=== PATIENT | male | born 1930 | race Caucasian/White ===

== ENCOUNTER → 2016-07-20 | Outpatient (CLI) | payer OTHER ==
[~2016-07-20] MED LIST: CHOL100040 PO; IBUP-103 PO; MULT-190 PO; MULT-506 PO; PRT40 PO
[2016-07-20 17:25] LABS: BASO % 0.3 %; BASO ABS # 0.02 K/uL (0-0.2); BLOOD UREA NITROGEN 18 mg/dl (7-18); COMPLETE YES; EOS % 1.4 %; GLUCOSE 91 mg/dl (70-99); HEMATOCRIT 43.4 % (42-52); IG% 0.3 %; LYMPH % 30.7 %; LYMPH ABS # 2.19 K/uL (1.2-3.4); MEAN CELL VOLUME 97.3 fL (80-100); MEAN CORPUSCULAR HEMOGLOBIN 32.5 pg (25-34); MEAN CORPUSCULAR HGB CONC 33.4 g/dl (32-36); MEAN PLATELET VOLUME 11.5 fL (7.4-10.4); MONO % 16.7 %; NEUT % 50.6 %; PLATELET COUNT 125 K/uL (130-400); RED BLOOD COUNT 4.46 M/uL (4.7-6.1); WHITE BLOOD COUNT 7.14 K/uL (4.8-10.8)
[2016-07-20 17:26] LABS: ALB/GLOB RATIO 1.1 (0.9-2); ALT/SGPT 26 U/L (12-78); AST/SGOT 23 U/L (15-37); BUN/CREATININE RATIO 15.1 (10-20); CALCIUM 8.8 mg/dl (8.5-10.1); CARBON DIOXIDE 31 mmol/L (21-32); CHLORIDE 108 mmol/L (98-107); POTASSIUM 4.2 mmol/L (3.5-5.1); SODIUM 144 mmol/L (136-145)
[2016-07-20 17:36] LABS: ALKALINE PHOSPHATASE 78 U/L (45-117)
--- NOTE | 2016-08-05 10:14 | CODING QUERY MEDICAL NECESSITY ---
SUPPORTING DIAGNOSIS NEEDED A supporting diagnosis is required for the test/procedure performed on this patient in order for us to be reimbursed by the patient's insurance. Please provide a supporting diagnosis for the following test/procedure listed below next to the test name along with your signature. *If there is no additional diagnosis for this patient that would support the following test/procedure please document that below next to the test/procedure. Test(s)/Procedure(s) that require a supporting diagnosis: * VITAMIN B-12 LEVEL DIAGNOSIS: * FOLATE LEVEL DIAGNOSIS: * DOS: 07/23/16 Provider Signature: Date: Thank you Rach Montes Health Information Management Once completed, please kindly fax back to [phone] For questions please call [phone]
== END | disposition home or self-care (01) ==
LOC: C.LABBC 15:04
PROVIDERS: ATTEND Internal Medicine
DX: R44.1 Visual hallucinations (principal); G31.84 Mild cognitive impairment of uncertain or unknown etiology

== ENCOUNTER → 2016-08-02 | Outpatient (CLI) | payer OTHER ==
--- NOTE | 2016-08-02 11:59 | DIAGNOSTIC IMAGING REPORT ---
MRI OF THE BRAIN WITHOUT IV CONTRAST CLINICAL HISTORY: Visual hallucinations. COMPARISON STUDY: No priors. TECHNIQUE: MRI of the brain was performed utilizing various T1 and T2-weighted sequences in the axial, sagittal, and coronal planes. IV contrast was not administered for this examination. The examination is significantly compromised by motion artifact and open MRI technique. FINDINGS: Brain parenchyma: There are age-related involutional changes noting moderate confluent subcortical and periventricular microangiopathic disease. There is no hemorrhage or mass effect. There is no restricted diffusion to suggest acute ischemia. Ruiz-white matter differentiation is preserved. No extra-axial fluid collection is seen. The cerebellar tonsils are normal in configuration. Ventricles, sulci, and cisterns: Prominent secondary to involutional change. Pituitary and sella: Unremarkable. Intracranial vasculature: Normal flow voids are maintained at the skull base. Orbits: The bony orbits are grossly intact. Orbital contents are normal in appearance noting a right ocular lens implant. Sinuses and mastoids: Clear. Calvarium: Unremarkable. Cervical cord: Partially visualized cervical spinal cord is normal in morphology and signal intensity. IMPRESSION: No acute intracranial abnormality noting a motion degraded examination. See above. Electronically signed by: Jensen Leonard M.D. 08/02/2016 11:58 AM Dictated Date/Time: 08/02/2016 11:55 AM
== END | disposition home or self-care (01) ==
LOC: C.OPENMRI 10:47
PROVIDERS: ATTEND Internal Medicine
DX: R44.1 Visual hallucinations (principal)

== ENCOUNTER 2016-11-17 13:57 | Inpatient (IN) | payer OTHER ==
[~2016-11-17] VITALS: Ht 170.2 cm; Wt 90.9 kg
[~2016-11-17 13:57] MED LIST changes: -IBUP-103 PO; -PRT40 PO
[2016-11-17] MEDS ORDERED: SODIUM CHLORIDE 0.9% 1000ML 1,000 ML IV STA (14:16)
[2016-11-17] MEDS ORDERED: IBUP-103 PO (14:29)
[2016-11-17] MEDS ORDERED: PANTOprazole INJ 80 MG in DEXTROSE 5% 100ML IV SCH (14:30)
[2016-11-17] MEDS ORDERED: PANTOprazole INJ 40 MG in DEXTROSE 5% 100ML IV SCH (14:45)
[2016-11-17 14:49] LABS: BASO % 0.3 %; BASO ABS # 0.02 K/uL (0-0.2); COMPLETE YES; EOS % 0.9 %; HEMATOCRIT 30.9 % (42-52); IG% 0.5 %; LYMPH ABS # 2.35 K/uL (1.2-3.4); MEAN CELL VOLUME 94.8 fL (80-100); MEAN CORPUSCULAR HEMOGLOBIN 30.4 pg (25-34); MEAN PLATELET VOLUME 10.8 fL (7.4-10.4); MONO % 15.1 %; NEUT % 46.2 %; PLATELET COUNT 111 K/uL (130-400); RED BLOOD COUNT 3.26 M/uL (4.7-6.1); WHITE BLOOD COUNT 6.35 K/uL (4.8-10.8)
[2016-11-17 14:59] LABS: INR 1.1 (0.9-1.1); PROTHROMBIN TIME (PATIENT) 11.6 SECONDS (9.0-12.0)
[2016-11-17 15:06] LABS: ALT/SGPT 21 U/L (12-78); BLOOD UREA NITROGEN 47 mg/dl (7-18); BUN/CREATININE RATIO 27.8 (10-20); CALCIUM 8.8 mg/dl (8.5-10.1); CARBON DIOXIDE 26 mmol/L (21-32); CHLORIDE 112 mmol/L (98-107); GLUCOSE 121 mg/dl (70-99); SODIUM 145 mmol/L (136-145)
[2016-11-17 15:09] LABS: ALKALINE PHOSPHATASE 67 U/L (45-117); AST/SGOT 18 U/L (15-37)
--- NOTE | 2016-11-17 16:38 | Gastrointestinal Consultation ---
Gastrointestinal Consultation Date of Consultation: Nov 17, 2016 Attending Physician: DEUCE Mcneal Consulting Physician: Fox Reason for Consultation: melena, coffee ground emesis History of Present Illness Patient is a 86 year old male with past medical history significant for PUD in 2012 and macular degeneration (pt denies any other history) who presented in the ED accompanied by her for evaluation of coffee ground emesis x 1 on Tuesday and numerous episodes of black stool yesterday. Pt was seen and evaluated in C9 in the ER. Pt appears to be a poor history of history and ROS are limited as he was not cooperative. When I ask him about abdominal pain, he looks at his and tells me "nobody is home" then denies abdominal pain. He denies any upper GI symptoms include epigastric pain, burning, regurgitation, burping, belching or nausea. He is not on any acid reflux regimen as an outpatient. He does not typically take NSAIDs. May take 1-2 tablets of Aleve PRN for joint pains. Does not use tobacco. Does not drink ETOH. Having numerous episodes of black stools without any abdominal pain - he is unable to quantify how many. Denies fever, chills, chest pain, SOB. Last HGB on record was 14, today HGB in 9.9. INR is non elevated. BUN 47 [employer] LIP READING 1.7 EGD 09/26/12: edematous, thick inflammed area with an associated superficial ulcer in gastric antum/lesser curve area; normal esophagus and duodenum. Path: chronic active gastritis, (-) for H Pylori. VFSS 07/31/12: normal, no dietary or behavioral modifications recommended. EGD 02/28/2012: large soft mass in the antrum with deep ulcer. Path from biopsies around the ulcer with chronic active mild gastritis H Pylori (-). Past Medical/Surgical History melena, coffee ground emesis Past Medical History: PUD, GERD, gastritis, dysphagia, actinic keratosis, seborrheic dermatitis, squamous cell carcinoma, basal cell carcinoma, Past Surgical History: EGD, cholecystectomy Family History No pertinent family history Social History Smoking Status: Never Smoker Drug Use: none Marital Status: Housing Status: unknown Occupation Status: retired Allergies Coded Allergies: No Known Allergies (Verified , 11/17/16) Current Medications Home Meds and Scripts Medications Dose Route/Sig Max Daily Dose Days Date Category Advil (Ibuprofen) 200 Mg Tab 200 Mg PO 11/17/16 Reported Ocuvite Preservision (Multivitamins/Minerals) 1 Tab Tab 1 Tab PO DAILY 02/09/14 Reported Vitamin D-1000 (Cholecalciferol) 1,000 Unit Tab 2,000 Units PO DAILY 02/09/14 Reported Multivitamin (Multivitamins) Tab 1 Tab PO DAILY 02/09/14 Reported Review of Systems Constitutional: No fever, No chills Respiratory: No cough, No shortness of breath Cardiac: No chest pain, No edema Abdomen: + vomiting, + diarrhea, + GI bleeding, No pain, No nausea, No constipation Physical Exam Date Time Temp Pulse Resp B/P (MAP) Pulse Ox O2 Delivery O2 Flow Rate FiO2 11/17/16 16:01 82 18 141/72 99 Room Air 11/17/16 14:31 93 11/17/16 14:26 96 Room Air 11/17/16 13:59 36.7 102 20 112/65 96 Room Air General Appearance: no apparent distress (no distress, but pt appears frustrated and aggitated ) Eyes: PERRL Neck: supple Respiratory/Chest: lungs clear Cardiovascular: regular rate, rhythm, + systolic murmur Abdomen: normal bowel sounds, non tender, soft, no organomegaly, no pulsatile mass Neurologic/Psych: alert Skin: normal color, warm/dry Laboratory Results Last 24 Hours Test 11/17/16 14:36 White Blood Count 6.35 K/uL Red Blood Count 3.26 M/uL Hemoglobin 9.9 g/dL Hematocrit 30.9 % Mean Corpuscular Volume 94.8 fL Mean Corpuscular Hemoglobin 30.4 pg Mean Corpuscular Hemoglobin Concent 32.0 g/dl Platelet Count 111 K/uL Mean Platelet Volume 10.8 fL Neutrophils (%) (Auto) 46.2 % Lymphocytes (%) (Auto) 37.0 % Monocytes (%) (Auto) 15.1 % Eosinophils (%) (Auto) 0.9 % Basophils (%) (Auto) 0.3 % Neutrophils # (Auto) 2.93 K/uL Lymphocytes # (Auto) 2.35 K/uL Monocytes # (Auto) 0.96 K/uL Eosinophils # (Auto) 0.06 K/uL Basophils # (Auto) 0.02 K/uL RDW Standard Deviation 54.5 fL RDW Coefficient of Variation 15.7 % Immature Granulocyte % (Auto) 0.5 % Immature Granulocyte # (Auto) 0.03 K/uL Prothrombin Time 11.6 SECONDS Prothromb Time International Ratio 1.1 Activated Partial Thromboplast Time 25.4 SECONDS Partial Thromboplastin Ratio 1.0 Sodium Level 145 mmol/L Potassium Level 4.0 mmol/L Chloride Level 112 mmol/L Carbon Dioxide Level 26 mmol/L Anion Gap 7.0 mmol/L Blood Urea Nitrogen 47 mg/dl Creatinine 1.70 mg/dl Est Creatinine Clear Calc Drug Dose 32.9 ml/min Estimated GFR () 41.1 Estimated GFR (Non- 35.5 BUN/Creatinine Ratio 27.8 Random Glucose 121 mg/dl Calcium Level 8.8 mg/dl Total Bilirubin 0.4 mg/dl Direct Bilirubin < 0.1 mg/dl Aspartate Amino Transf (AST/SGOT) 18 U/L Alanine Aminotransferase (ALT/SGPT) 21 U/L Alkaline Phosphatase 67 U/L Total Protein 6.3 gm/dl Albumin 3.3 gm/dl Lipase 171 U/L Impression Patient is a 86 year old male with history of gastric ulcer in 2011 and 2012 who presented with melena and coffee ground emesis x 1 day. HGB 9.9. Differentials PUD include nenita-Ngo tear, esophagitis, variceal bleed etc Plan NPO EGD 11/18/16 PPI Bolus&Drip No NSAIDs Trend H&H Transfuse as needed Monitor for S/S GI blood loss GI to follow. Please call with any questions or concerns. ATTESTATION: I have performed a history and physical examination of this patient and reviewed the electronic record. Specifically, on physical examination there is no abdominal tenderness. I have discussed the case with NELSON Hill. The above note reflects my findings, conclusions, and recommendations. Jas Braxton MD
[2016-11-17] MEDS ORDERED: ONDANSETRON INJ 2 MG/ML 2 ML VIAL IV PRN (16:45)
[2016-11-17 17:30] VITALS: BP 156/78; PULSE 78; TEMP 36.9; Ht 170.2 cm; Wt 90.9 kg
--- NOTE | 2016-11-17 17:52 | History and Physical ---
History & Physical Date of Service Nov 17, 2016. History & Physical Resident Physician Supervision Note: I interviewed and examined the patient. Discussed with Dr. Erin Resendiz and agree with findings and plan as documented in the note. Any exceptions or clarifications are listed here: None This 86-year-old relatively healthy male presents with a three-day history of vomiting black liquid and having dark stools. He is slightly fatigued he initially had some abdominal pain with this is resolved. He presented to the ER due to continued her stools and found to have an hemoglobin of 9.9 down from 14 earlier this year is Vital signs reviewed and stable Physical exam shows a heart murmur which is more consistent with a mitral murmur heard with systolic Abdomen normoactive bowel sounds soft and nontender Assessment a 86-year-old male likely upper GI bleed he'll be kept nothing by mouth and have a upper endoscopy on November 18 1v Protonix drip serial hemoglobins will be evaluated and transfuse as needed Regarding his heart murmur is told he's had a heart murmur in the past and because this may become significantly future an echocardiogram be performed likewise because we are going to be giving the patient volume resuscitation evaluation of this murmur would be important DVT prevention is mechanical given his bleeding was This patient is a full code Documented By: Jorge Mcneal
--- NOTE | 2016-11-17 18:06 | History and Physical ---
History & Physical Date & Time of Service: Nov 17, 2016 at 17:48 Chief Complaint: Acute Kidney Injury (Nilson), Anemia Primary Care Physician: Thomas Combs M.D. 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 According to the this started with an episode of black emesis on Tuesday night. Since then he has started with diarrhea which is black and loose. When the looked at it she felt there was dark red blood in amongst the stool. He has never had any episodes like this before. He did have an EGD in 2012 for GERD and was started on Omeprazole which he self d/c as he felt he did not need the medication any more. No recent trips and no change in diet. Denies any pain today however yesterday his abdomen felt " uncomfortable". Does have a history of "vertigo" when he gets up too quickly. He has no history of carcinoma in him and no colon cancer in the family only prostate cancer in his father. When being evaluated in the ED he was found to have grossly positive Hemoccult and a hgb of 9.9 from his normal of 14. He is not tachycardic however he does have a systolic murmur which was unknown to the patient. he did received a bolus of NSS in the ED. Blood consent form signed. Past Medical/Surgical History Surgical Problems: (1) History of back surgery Status: Resolved (2) Hx of cholecystectomy Status: Resolved Family History FH: prostate cancer FATHER Social History Smoking Status: Never Smoker Smokeless Tobacco Use: No Alcohol Use: none Drug Use: none Marital Status: Housing status: lives with significant other Occupational Status: retired Immunizations History of Influenza Vaccine: No History of Tetanus Vaccine?: Unknown History of Pneumococcal: No History of Hepatitis B Vaccine: Unknown Multi-Drug Resistant Organisms History of MDRO: No Allergies Coded Allergies: No Known Allergies (Verified , 11/17/16) Home Medications Scheduled Cholecalciferol (Vitamin D-1000), 2,000 UNITS PO DAILY Multivitamin (Multivitamin), 1 TAB PO DAILY Ocuvite Preservision (Ocuvite Preservision), 1 TAB PO DAILY Miscellaneous Medications Ibuprofen Tab (Advil), 200 MG PO Review of Systems Unable to complete ROS as the patient is LEVEL[place] and unable to answer questions Physical Exam Vital Signs Date Time Temp Pulse Resp B/P (MAP) Pulse Ox O2 Delivery O2 Flow Rate FiO2 11/17/16 16:52 64 18 138/84 96 Room Air 11/17/16 16:01 82 18 141/72 99 Room Air 11/17/16 14:31 93 11/17/16 14:26 96 Room Air 11/17/16 13:59 36.7 102 20 112/65 96 Room Air General Appearance: no apparent distress Head: normocephalic, atraumatic Eyes: normal inspection ENT: normal ENT inspection Neck: supple Respiratory/Chest: normal breath sounds, no respiratory distress, no accessory muscle use Cardiovascular: regular rate, rhythm, normal peripheral pulses, + systolic murmur (3/6) Abdomen/GI: normal bowel sounds, non tender, soft, no organomegaly, + fecal occult blood, + pertinent finding (grossly positive hemoccult, black stool noted ) Back: normal inspection Extremities/Musculoskelatal: normal inspection, no calf tenderness, no pedal edema Neurologic/Psych: alert, normal mood/affect Skin: normal color, warm/dry, no rash Lymphatic: no adenopathy Diagnostics Laboratory Results Results Past 24 Hours Test 11/17/16 14:36 Range/Units White Blood Count 6.35 4.8-10.8 K/uL Red Blood Count 3.26 4.7-6.1 M/uL Hemoglobin 9.9 14.0-18.0 g/dL Hematocrit 30.9 42-52 % Mean Corpuscular Volume 94.8 80-100 fL Mean Corpuscular Hemoglobin 30.4 25-34 pg Mean Corpuscular Hemoglobin Concent 32.0 32-36 g/dl Platelet Count 111 130-400 K/uL Mean Platelet Volume 10.8 7.4-10.4 fL Neutrophils (%) (Auto) 46.2 % Lymphocytes (%) (Auto) 37.0 % Monocytes (%) (Auto) 15.1 % Eosinophils (%) (Auto) 0.9 % Basophils (%) (Auto) 0.3 % Neutrophils # (Auto) 2.93 1.4-6.5 K/uL Lymphocytes # (Auto) 2.35 1.2-3.4 K/uL Monocytes # (Auto) 0.96 0.11-0.59 K/uL Eosinophils # (Auto) 0.06 0-0.5 K/uL Basophils # (Auto) 0.02 0-0.2 K/uL RDW Standard Deviation 54.5 36.4-46.3 fL RDW Coefficient of Variation 15.7 11.5-14.5 % Immature Granulocyte % (Auto) 0.5 % Immature Granulocyte # (Auto) 0.03 0.00-0.02 K/uL Prothrombin Time 11.6 9.0-12.0 SECONDS Prothromb Time International Ratio 1.1 0.9-1.1 Activated Partial Thromboplast Time 25.4 21.0-31.0 SECONDS Partial Thromboplastin Ratio 1.0 Sodium Level 145 136-145 mmol/L Potassium Level 4.0 3.5-5.1 mmol/L Chloride Level 112 98-107 mmol/L Carbon Dioxide Level 26 21-32 mmol/L Anion Gap 7.0 3-11 mmol/L Blood Urea Nitrogen 47 7-18 mg/dl Creatinine 1.70 0.60-1.40 mg/dl Est Creatinine Clear Calc Drug Dose 32.9 ml/min Estimated GFR () 41.1 Estimated GFR (Non- 35.5 BUN/Creatinine Ratio 27.8 10-20 Random Glucose 121 70-99 mg/dl Calcium Level 8.8 8.5-10.1 mg/dl Total Bilirubin 0.4 0.2-1 mg/dl Direct Bilirubin < 0.1 0-0.2 mg/dl Aspartate Amino Transf (AST/SGOT) 18 15-37 U/L Alanine Aminotransferase (ALT/SGPT) 21 12-78 U/L Alkaline Phosphatase 67 45-117 U/L Total Protein 6.3 6.4-8.2 gm/dl Albumin 3.3 3.4-5.0 gm/dl Lipase 171 73-393 U/L EKG Sinus rhythm with 1st degree A-V block Incomplete right bundle branch block Left anterior fascicular block Minimal voltage criteria for LVH, may be normal variant Abnormal ECG When compared with ECG of 09-FEB-2014 10:18, UT interval has increased Note QTc is 462 Impression Assessment and Plan This is an 86 yo m with an acute GI bleed most likely upper in nature. He will be admitted for further evaluation and plan is for EGD tomorrow. As the patient is actively bleeding and there is an unknown murmur would be appropriate to assess the patient's CVS status as if there is underlying cardiovascular disease the parameters of hgb for transfusion may be more lenient. Anemia secondary to acute loss most likely GI in nature - tele admission - HH q 6 h - Consult GI- plan for EGD and patient is NPO - protonix drip - blood consent has been signed and T&S complete - Will hold one unit - plan to transfuse < 8 or hemodynamically unstable - consider H pylori based on EGD - no recent abx use and no RF for C Diff, no WBC count so will hold off on testing for this NILSON most likely secondary to dehydration/ acute blood loss - Recheck bmp in the am - NSS @ 80 cc/h ( unsure of patient's current ejection fraction) - Did receive a bolus of NSS in the ED - Monitor I&O New systolic murmur in the presence of acute blood loss - Echo complete - monitor I&O DVT prophylaxis - SCD as chemical prophylaxis contraindicated FULL CODE LEVELOCK please discuss care with POA, Level of Care Telemetry Resuscitation Status FULL RESUSCITATION VTE Prophylaxis VTE Risk Assessment Done? Y/N: Yes Risk Level: Moderate Given or contraindicated: SCD's Social Service Consult None Apply Additional Copies To Thomas Combs M.D.
[2016-11-17] MEDS: SODIUM CHLORIDE 0.9% 1000ML 1,000 ML IV SCH (18:49)
[2016-11-17 19:20] VITALS: BP 142/71; PULSE 80; TEMP 36.9; O2SAT 99
[2016-11-17 20:00] VITALS: O2SAT 80
--- NOTE | 2016-11-17 20:11 | EMERGENCY ROOM VISIT NOTE ---
History Report prepared by Clarkibstaci: Jonny Iyer Under the Supervision of: Dr. Clayton Jones D.O. First contact with patient: 14:06 Chief Complaint: GI ASSESSMENT Stated Complaint: BLOOD IN STOOL History of Present Illness The patient is an 86 year old male who presents to the Emergency Room with complaints of persistent rectal bleeding since yesterday. The patient told his that he had dark stools. When she inspected his next bowel movement herself , she noticed that the stool was black with red blood noted. The patient also vomited twice two nights ago, which was black. The patient initially attributed the black vomit to eating ice cream, however he ate vanilla ice cream with some chocolate syrup. The patient is not on blood thinners. The patient denies headache, change in vision, fevers, chest pain, shortness of breath, pain with urination. Source of History: patient, spouse/significant other Onset: yesterday Position: other (rectal) Quality: other (melena) Timing: other (persistent) Associated Symptoms: + vomiting, No fevers, No headache, No chest pain, No SOB, No urinary symptoms Review of Systems See HPI for pertinent positives & negatives. A total of 10 systems reviewed and were otherwise negative. Past Medical & Surgical Medical Problems: (1) MINOO (acute kidney injury) (2) Anemia Surgical Problems: (1) History of back surgery (2) Hx of cholecystectomy Family History No pertinent family history Social History Smoking Status: Never Smoker Drug Use: none Marital Status: Housing Status: unknown Occupation Status: retired Current/Historical Medications Scheduled Cholecalciferol (Vitamin D-1000), 2,000 UNITS PO DAILY Multivitamin (Multivitamin), 1 TAB PO DAILY Ocuvite Preservision (Ocuvite Preservision), 1 TAB PO DAILY Miscellaneous Medications Ibuprofen Tab (Advil), 200 MG PO Allergies Coded Allergies: No Known Allergies (Verified , 11/17/16) Physical Exam Vital Signs Date Time Temp Pulse Resp B/P (MAP) Pulse Ox O2 Delivery O2 Flow Rate FiO2 11/17/16 16:01 82 18 141/72 99 Room Air 11/17/16 14:31 93 11/17/16 14:26 96 Room Air 11/17/16 13:59 36.7 102 20 112/65 96 Room Air Physical Exam GENERAL: Sitting up in bed, hard of hearing, no acute distress, nontoxic. EYE EXAM: normal conjunctiva. OROPHARYNX: no exudate, no erythema, lips, buccal mucosa, and tongue normal and mucous membranes are moist NECK: supple, no nuchal rigidity, no adenopathy, non-tender LUNGS: Clear to auscultation. Normal chest wall mechanics HEART: Systolic ejection murmur, S1 normal and S2 normal ABDOMEN: abdomen soft, non-tender, normo-active bowel sounds, no masses, no rebound or guarding. Melanotic stool heme positive. BACK: Back is symmetrical on inspection and there is no deformity, no midline tenderness, no CVA tenderness. SKIN: no rashes and no bruising UPPER EXTREMITIES: upper extremities are grossly normal. LOWER EXTREMITIES: No pitting edema. NEURO EXAM: Normal sensorium, cranial nerves II-XII grossly intact, normal speech, no gross weakness of arms, no gross weakness of legs. Gross sensation intact. Medical Decision & Procedures Laboratory Results 11/17/16 14:36 Red Blood Count 3.26, Mean Corpuscular Volume 94.8, Mean Corpuscular Hemoglobin 30.4, Mean Corpuscular Hemoglobin Concent 32.0, Mean Platelet Volume 10.8, Neutrophils (%) (Auto) 46.2, Lymphocytes (%) (Auto) 37.0, Monocytes (%) (Auto) 15.1, Eosinophils (%) (Auto) 0.9, Basophils (%) (Auto) 0.3, Neutrophils # (Auto ) 2.93, Lymphocytes # (Auto) 2.35, Monocytes # (Auto) 0.96, Eosinophils # (Auto ) 0.06, Basophils # (Auto) 0.02 11/17/16 14:36 Test 11/17/16 14:36 White Blood Count 6.35 K/uL (4.8-10.8) Red Blood Count 3.26 M/uL (4.7-6.1) Hemoglobin 9.9 g/dL (14.0-18.0) Hematocrit 30.9 % (42-52) Mean Corpuscular Volume 94.8 fL (80-100) Mean Corpuscular Hemoglobin 30.4 pg (25-34) Mean Corpuscular Hemoglobin Concent 32.0 g/dl (32-36) Platelet Count 111 K/uL (130-400) Mean Platelet Volume 10.8 fL (7.4-10.4) Neutrophils (%) (Auto) 46.2 % Lymphocytes (%) (Auto) 37.0 % Monocytes (%) (Auto) 15.1 % Eosinophils (%) (Auto) 0.9 % Basophils (%) (Auto) 0.3 % Neutrophils # (Auto) 2.93 K/uL (1.4-6.5) Lymphocytes # (Auto) 2.35 K/uL (1.2-3.4) Monocytes # (Auto) 0.96 K/uL (0.11-0.59) Eosinophils # (Auto) 0.06 K/uL (0-0.5) Basophils # (Auto) 0.02 K/uL (0-0.2) RDW Standard Deviation 54.5 fL (36.4-46.3) RDW Coefficient of Variation 15.7 % (11.5-14.5) Immature Granulocyte % (Auto) 0.5 % Immature Granulocyte # (Auto) 0.03 K/uL (0.00-0.02) Prothrombin Time 11.6 SECONDS (9.0-12.0) Prothromb Time International Ratio 1.1 (0.9-1.1) Activated Partial Thromboplast Time 25.4 SECONDS (21.0-31.0) Partial Thromboplastin Ratio 1.0 Anion Gap 7.0 mmol/L (3-11) Est Creatinine Clear Calc Drug Dose 32.9 ml/min Estimated GFR () 41.1 Estimated GFR (Non- 35.5 BUN/Creatinine Ratio 27.8 (10-20) Calcium Level 8.8 mg/dl (8.5-10.1) Total Bilirubin 0.4 mg/dl (0.2-1) Direct Bilirubin < 0.1 mg/dl (0-0.2) Aspartate Amino Transf (AST/SGOT) 18 U/L (15-37) Alanine Aminotransferase (ALT/SGPT) 21 U/L (12-78) Alkaline Phosphatase 67 U/L (45-117) Total Protein 6.3 gm/dl (6.4-8.2) Albumin 3.3 gm/dl (3.4-5.0) Lipase 171 U/L (73-393) Laboratory results per my review. Medications Administered Medications (Trade) Dose Ordered Sig/Jesi Route Start Time Stop Time Status Last Admin Dose Admin Sodium Chloride 1,000 ml @ 999 mls/hr Q1H1M STAT IV 11/17/16 14:16 11/17/16 15:16 DC 11/17/16 14:52 999 MLS/HR Pantoprazole Sodium (Protonix IV Bolus/Drip) 1 ea NOW STAT IV 11/17/16 14:17 11/17/16 14:18 DC 11/17/16 14:52 1 EA Pantoprazole Sodium 80 mg/ Dextrose 120 ml @ 480 mls/hr TODAY@1430 IV 11/17/16 14:30 11/17/16 14:44 DC 11/17/16 14:53 480 MLS/HR Pantoprazole Sodium 40 mg/ Dextrose 100 ml @ 20 mls/hr Q5H IV 11/17/16 14:45 11/17/16 17:55 DC 11/17/16 15:11 20 MLS/HR ECG Indication: other (GI bleed) Rate (beats per minute): 95 Rhythm: sinus rhythm Findings: 1st degree AV block, left axis deviation, no ectopy ED Course ED COURSE: Vital signs were reviewed and showed tachycardia. The patients medical record was reviewed The above diagnostic studies were performed and reviewed. ED treatments and interventions as stated above. 1410: The patient was evaluated in room C9. A complete history and physical examination was performed. 1416: NSS 1000 ml @ 999 mls/hr. 1417: Protonix IV bolus / drip 1 ea IV. 1430: Protonix 80 mg / dextrose 120 ml @ 480 mls/hr. 1445: Protonix 40 mg / dextrose 100 ml @ 20 mls/hr. 1540: Discussed the case with [facility]. 1550: Discussed the case with Dr. Mcneal, [facility] [place] Hospitalist. The patient will be evaluated. 1555: Upon reevaluation, the patient is doing fine.I discussed my findings with the patient and he understands and agrees with the treatment plan. Based on the patients age, coexisting illnesses, exam and lab findings the decision to treat as an inpatient was made. The patient remained stable while under my care. The patient will be evaluated for further management. Medical Decision Differential diagnosis includes etiologies such as diverticulosis, AVM, coagulopathy, colitis, inflammatory bowel disease, malignancy, Marybeth-Ngo tear, esophagitis, peptic ulcer disease, variceal bleed, gastritis, epistaxis, fissure, hemorrhoids, as well as others were entertained. Blood pressure screening: Patient was found to have normal blood pressure on screening and does not require follow-up. Medication Reconciliation: I attest that I have personally reviewed the patient' s current medication list. Patient is an 86-year-old male who presents the ER for vomiting dark material on Tuesday and having dark tarry stools yesterday and today. Hemoglobin dropped from 14 to 9.9. Creatinine is elevated at 1.7. Bilirubin, LFTs and lipase are normal. With his melanotic stool, and drop in hemoglobin he was placed on a PPI drip and bolus. He is admitted to internal medicine for GI bleed. Discussed case with GI and internal medicine. Consults Time Called: 1530 Consulting Physician: [facility] Returned Call: 1540 Additional Consults: Time Called: 1540 Consulted Physician: Dr. Mcneal, [facility] [place] Hospitalist Returned Call: 1550 Additional Comments: The patient will be evaluated. Impression Primary Impression: Upper GI bleed Additional Impression: Anemia Scribe Attestation The scribe's documentation has been prepared under my direction and personally reviewed by me in its entirety. I confirm that the note above accurately reflects all work, treatment, procedures, and medical decision making performed by me. Departure Information Dispostion Being Evaluated By Hospitalist Referrals Thomas Combs M.D. (PCP) Patient Instructions My [facility] Problem Qualifiers Additional Impression: Anemia Anemia type: unspecified type Qualified Codes: D64.9 - Anemia, unspecified
[2016-11-17 20:20] LABS: HEMATOCRIT 30.2 % (42-52)
[2016-11-17] MEDS: PANTOprazole INJ 40 MG in DEXTROSE 5% 100ML IV SCH (20:50)
[2016-11-17 23:56] VITALS: BP 133/71; PULSE 78; TEMP 37; O2SAT 95
[2016-11-18] VITALS (11 sets, daily range): BP systolic 117–163; BP diastolic 67–82; PULSE 67–117; TEMP 36.3–36.9; O2SAT 94–99
[2016-11-18 00:22] LABS: URINE APPEARANCE CLEAR (CLEAR); URINE BILIRUBIN NEG (NEG); URINE COLOR YELLOW; URINE NITRITE NEG (NEG); URINE SPECIFIC GRAVITY 1.021 (1.000-1.030); UROBILINOGEN NEG (NEG)
[2016-11-18 00:27] LABS: MANUAL MICROSCOPIC REQUIRED? NO; REVIEW REQ? NO
[2016-11-18] MEDS: PANTOprazole INJ 40 MG in DEXTROSE 5% 100ML IV SCH ×2 (01:30→06:39)
[2016-11-18 02:06] LABS: HEMATOCRIT 28.1 % (42-52); MEAN CELL VOLUME 94.6 fL (80-100); MEAN CORPUSCULAR HEMOGLOBIN 30.3 pg (25-34); MEAN PLATELET VOLUME 10.6 fL (7.4-10.4); PLATELET COUNT 102 K/uL (130-400); RED BLOOD COUNT 2.97 M/uL (4.7-6.1); WHITE BLOOD COUNT 5.54 K/uL (4.8-10.8)
[2016-11-18 02:24] LABS: BUN/CREATININE RATIO 27.3 (10-20); CREATININE 1.2 mg/dl (0.60-1.40); POTASSIUM 3.9 mmol/L (3.5-5.1)
[2016-11-18 04:00] LABS: CALCIUM 8.2 mg/dl (8.5-10.1)
[2016-11-18] MEDS: SODIUM CHLORIDE 0.9% 1000ML 1,000 ML IV SCH (06:39)
[2016-11-18 08:20] LABS: HEMATOCRIT 29.8 % (42-52)
--- NOTE | 2016-11-18 10:23 | Family Medicine Progress Note ---
Progress Note Date of Service Nov 18, 2016. Subjective Pt evaluation today including: conversation w/ patient, physical exam, chart review, lab review, review of studies Pain: 0/10 PO Intake: NPO Voiding: no voiding problems Patient is deaf/ DOUGLAS so unable to complete a meaningful ROS, patient denies any ongoing diarrhea or jamil blood in his stool. does understand he is getting EGD today. no events overnight Medications Medications Administered Medications (Trade) Dose Ordered Sig/Jesi Route Start Time Stop Time Status Last Admin Dose Admin Sodium Chloride 1,000 ml @ 999 mls/hr Q1H1M STAT IV 11/17/16 14:16 11/17/16 15:16 DC 11/17/16 14:52 999 MLS/HR Pantoprazole Sodium (Protonix IV Bolus/Drip) 1 ea NOW STAT IV 11/17/16 14:17 11/17/16 14:18 DC 11/17/16 14:52 1 EA Pantoprazole Sodium 80 mg/ Dextrose 120 ml @ 480 mls/hr TODAY@1430 IV 11/17/16 14:30 11/17/16 14:44 DC 11/17/16 14:53 480 MLS/HR Pantoprazole Sodium 40 mg/ Dextrose 100 ml @ 20 mls/hr Q5H IV 11/17/16 14:45 11/17/16 17:55 DC 11/17/16 15:11 20 MLS/HR Sodium Chloride 1,000 ml @ 60 mls/hr [id number] IV 11/17/16 18:00 12/17/16 17:59 11/18/16 06:39 80 MLS/HR Pantoprazole Sodium 40 mg/ Dextrose 100 ml @ 20 mls/hr Q5H IV 11/17/16 20:45 12/17/16 20:44 11/18/16 06:39 20 MLS/HR Objective Vital Signs Date Time Temp Pulse Resp B/P (MAP) Pulse Ox O2 Delivery O2 Flow Rate FiO2 11/18/16 10:15 36.5 75 16 162/83 (109) 98 Room Air 11/18/16 09:49 36.6 72 17 117/69 96 Room Air 11/18/16 08:00 Room Air 11/18/16 06:59 36.6 72 17 117/69 (85) 94 Room Air 11/18/16 04:00 Room Air 11/18/16 04:00 36.9 77 18 117/73 (88) 96 Room Air 11/17/16 23:59 Room Air 11/17/16 23:56 37.0 78 18 133/71 (91) 95 Room Air 11/17/16 20:00 80 Room Air 11/17/16 19:20 36.9 80 16 142/71 (94) 99 Room Air 11/17/16 17:30 36.9 78 16 156/78 Room Air 11/17/16 16:52 64 18 138/84 96 Room Air 11/17/16 16:01 82 18 141/72 99 Room Air 11/17/16 14:31 93 11/17/16 14:26 96 Room Air 11/17/16 13:59 36.7 102 20 112/65 96 Room Air Physical Exam General Appearance: no apparent distress Eyes: normal inspection ENT: normal ENT inspection, + pertinent finding (DOUGLAS) Neck: supple Respiratory/Chest: normal breath sounds, no respiratory distress, no accessory muscle use Cardiovascular: regular rate, rhythm, + systolic murmur (3/6) Abdomen: normal bowel sounds, non tender, soft Extremities: normal range of motion, non-tender, normal inspection, no pedal edema, no calf tenderness Neurologic/Psychiatric: alert, normal mood/affect, oriented x 3 Skin: normal color, warm/dry, no rash Lymphatic: no adenopathy Laboratory Results Results Past 24 Hours Test 11/17/16 14:36 11/17/16 20:00 11/17/16 23:40 11/18/16 01:54 Range/Units White Blood Count 6.35 5.54 4.8-10.8 K/uL Red Blood Count 3.26 2.97 4.7-6.1 M/uL Hemoglobin 9.9 9.7 9.0 14.0-18.0 g/dL Hematocrit 30.9 30.2 28.1 42-52 % Mean Corpuscular Volume 94.8 94.6 80-100 fL Mean Corpuscular Hemoglobin 30.4 30.3 25-34 pg Mean Corpuscular Hemoglobin Concent 32.0 32.0 32-36 g/dl Platelet Count 111 102 130-400 K/uL Mean Platelet Volume 10.8 10.6 7.4-10.4 fL Neutrophils (%) (Auto) 46.2 % Lymphocytes (%) (Auto) 37.0 % Monocytes (%) (Auto) 15.1 % Eosinophils (%) (Auto) 0.9 % Basophils (%) (Auto) 0.3 % Neutrophils # (Auto) 2.93 1.4-6.5 K/uL Lymphocytes # (Auto) 2.35 1.2-3.4 K/uL Monocytes # (Auto) 0.96 0.11-0.59 K/uL Eosinophils # (Auto) 0.06 0-0.5 K/uL Basophils # (Auto) 0.02 0-0.2 K/uL RDW Standard Deviation 54.5 54.7 36.4-46.3 fL RDW Coefficient of Variation 15.7 15.7 11.5-14.5 % Immature Granulocyte % (Auto) 0.5 % Immature Granulocyte # (Auto) 0.03 0.00-0.02 K/uL Prothrombin Time 11.6 9.0-12.0 SECONDS Prothromb Time International Ratio 1.1 0.9-1.1 Activated Partial Thromboplast Time 25.4 21.0-31.0 SECONDS Partial Thromboplastin Ratio 1.0 Sodium Level 145 146 136-145 mmol/L Potassium Level 4.0 3.9 3.5-5.1 mmol/L Chloride Level 112 116 98-107 mmol/L Carbon Dioxide Level 26 24 21-32 mmol/L Anion Gap 7.0 6.0 3-11 mmol/L Blood Urea Nitrogen 47 33 7-18 mg/dl Creatinine 1.70 1.20 0.60-1.40 mg/dl Est Creatinine Clear Calc Drug Dose 32.9 46.6 ml/min Estimated GFR () 41.1 62.6 Estimated GFR (Non- 35.5 54.0 BUN/Creatinine Ratio 27.8 27.3 10-20 Random Glucose 121 95 70-99 mg/dl Calcium Level 8.8 8.2 8.5-10.1 mg/dl Total Bilirubin 0.4 0.2-1 mg/dl Direct Bilirubin < 0.1 0-0.2 mg/dl Aspartate Amino Transf (AST/SGOT) 18 15-37 U/L Alanine Aminotransferase (ALT/SGPT) 21 12-78 U/L Alkaline Phosphatase 67 45-117 U/L Total Protein 6.3 6.4-8.2 gm/dl Albumin 3.3 3.4-5.0 gm/dl Lipase 171 73-393 U/L Urine Color YELLOW Urine Appearance CLEAR CLEAR Urine pH 5.0 4.5-7.5 Urine Specific [place] 1.021 1.000-1.030 Urine Protein NEG NEG Urine Glucose (UA) NEG NEG Urine Ketones NEG NEG Urine Occult Blood NEG NEG Urine Nitrite NEG NEG Urine Bilirubin NEG NEG Urine Urobilinogen NEG NEG Urine Leukocyte Esterase NEG NEG Test 11/18/16 08:05 Range/Units Hemoglobin 9.7 14.0-18.0 g/dL Hematocrit 29.8 42-52 % Assessment and Plan This is an 86 yo m with an acute GI bleed most likely upper in nature. He will be admitted for further evaluation and plan is for EGD today. As the patient is actively bleeding and there is an unknown murmur would be appropriate to assess the patient's CVS status as if there is underlying cardiovascular disease the parameters of hgb for transfusion may be more lenient. Acute blood loss Anemia likely secondary to GI bleed - tele admission - HH q 6 h- have been stable at approx 9 - Consult GI- plan for EGD today - protonix drip - blood consent has been signed and T&S complete - Will hold one unit - plan to transfuse < 8 or hemodynamically unstable - consider H pylori based on EGD - no recent abx use and no RF for C Diff, no WBC count so will hold off on testing for this MINOO most likely secondary to dehydration/ acute blood loss- resolved - Recheck bmp in the am - NSS @ 80 cc/h ( unsure of patient's current ejection fraction) - Monitor I&O New systolic murmur in the presence of acute blood loss - Echo complete- pending results - monitor I&O DVT prophylaxis - SCD as chemical prophylaxis contraindicated FULL CODE DOUGLAS please discuss care with POA, Continued [facility] stay due to: other Discharge planning: uncertain Reviewed: Pt Seen/Exam by Me History very hard of hearing denies having any bleeding. says noted it. Constitutional: denies: fever Respiratory: negative: short of breath Cardiovascular: denies chest pain Gastrointestinal/Abdominal: negative: abdominal pain General Appearance: no apparent distress (sitting in chair) Respiratory: lungs clear, no respiratory distress Cardiovascular: regular rate, rhythm Gastrointestinal: normal bowel sounds, non tender, soft Neurologic/Psychiatric: alert, oriented x 3 Skin Characteristics: warm/dry Assessment/Plan Resident Physician Supervision Note: I was present with Dr. Win in bedside. I verified the escobar history and physical, reviewed labs and image studies, discussed the case with the resident and agree with the findings and care plan.
[2016-11-18] MEDS ORDERED: KETAMINE HCL INJ 50 MG/ML 10 ML VIAL ONE (10:40)
[2016-11-18] MEDS ORDERED: LIDOCAINE HCL 2% 2 ML VIAL (20MG/ML) ONE (10:40)
[2016-11-18] MEDS ORDERED: PROPOFOL IV EMULSION 10 MG/ML 20 ML VIAL IV ONE (10:40)
[2016-11-18] MEDS ORDERED: MIDAZOLAM HCL 1 MG/ML 2ML VIAL ONE (10:41)
--- NOTE | 2016-11-18 11:21 | GI REPORT ---
Procedure Date: 11/18/2016 10:49 AM Procedure: Upper GI endoscopy Indications: Coffee-ground emesis, Melena Medicines: Monitored Anesthesia Care Complications: No immediate complications. Estimated blood loss: None. Estimated Blood Loss: Estimated blood loss: none. Procedure: Pre-Anesthesia Assessment: - Prior to the procedure, a History and Physical was performed, and patient medications, allergies and sensitivities were reviewed. The patient's tolerance of previous anesthesia was reviewed. - ASA Grade Assessment: II - A patient with mild systemic disease. After obtaining informed consent, the endoscope was passed under direct vision. Throughout the procedure, the patient's blood pressure, pulse, and oxygen saturations were monitored continuously. The Scope was introduced through the mouth, and advanced to the third part of duodenum. The upper GI endoscopy was accomplished with ease. The patient tolerated the procedure well. Findings: The upper third of the esophagus, middle third of the esophagus and lower third of the esophagus were normal. The Z-line was regular and was found 37 cm from the incisors. A small hiatus hernia was present. Two non-bleeding superficially cratered gastric ulcers with no stigmata of bleeding were found within a large defect in the gastric antrum. The appearance of the defect suggested a healed large gastric ulcer. Biopsies were taken with a cold forceps in the entire examined stomach for Helicobacter pylori testing. A medium diverticulum was found in the second part of the duodenum. There is no endoscopic evidence of bleeding in the entire examined stomach. Verification of patient identification for the specimen was done by the physician and nurse using the patient's name, date and medical record number. Impression: - Normal upper third of esophagus, middle third of esophagus and lower third of esophagus. - Z-line regular, 37 cm from the incisors. - Small hiatus hernia. - Non-bleeding gastric ulcers with no stigmata of bleeding. - Duodenal diverticulum. - Biopsies were taken with a cold forceps for Helicobacter pylori testing. Recommendation: - [facility] to [facility] for [facility] care. Jas Braxton M.D. Jas Braxton MD 11/18/2016 11:21:04 AM This report has been signed electronically. Note Initiated On: 11/18/2016 10:49 AM I attest to the content of the Intraoperative Record and orders documented therein, exceptions below
--- NOTE | 2016-11-18 11:23 | Progress Note ---
Progress Note Date of Service Nov 18, 2016. Progress Note EGD 11/18/16: z-line regular, small HH, nonbleeding gastric ulcers without stigmata of bleeding were found within a large defect in the gastric antrum, suggestive of a healed large gastric ulcer, duodenal diverticulum, biopsies for H.Pylori obtained GI suggests to convert IV PPI to PO PPI BID. Continue PPI BID x 1 month. He should then use PPI once daily indefinitely. Please advance diet as tolerated. No NSAIDs Trend H&H. Transfuse as needed. Follow up H.Pylori results. GI to sign off. Please call with any questions or concerns.
--- NOTE | 2016-11-18 11:37 | Anesthesiology Progress Note ---
Anesthesia Post Op Note Date & Time Nov 18, 2016 at 11:37 Vital Signs Pain Intensity: 0 Vital Signs Past 12 Hours Date Time Temp Pulse Resp B/P (MAP) Pulse Ox O2 Delivery O2 Flow Rate FiO2 11/18/16 11:31 76 16 139/69 (92) 98 Room Air 11/18/16 11:16 71 16 130/66 (87) 99 Room Air 11/18/16 10:15 36.5 75 16 162/83 (109) 98 Room Air 11/18/16 09:49 36.6 72 17 117/69 96 Room Air 11/18/16 08:00 Room Air 11/18/16 06:59 36.6 72 17 117/69 (85) 94 Room Air 11/18/16 04:00 Room Air 11/18/16 04:00 36.9 77 18 117/73 (88) 96 Room Air 11/17/16 23:59 Room Air 11/17/16 23:56 37.0 78 18 133/71 (91) 95 Room Air Notes Mental Status: alert / awake / arousable, participated in evaluation Pt Amnestic to Procedure: Yes Nausea / Vomiting: adequately controlled Pain: adequately controlled Airway Patency, RR, SpO2: stable & adequate BP & HR: stable & adequate Hydration State: stable & adequate Anesthetic Complications: no major complications apparent
--- NOTE | 2016-11-18 12:33 | Clinical Documentation Query ---
CLINICAL DOCUMENTATION QUERY Dr. REY, Very minimal rewording needed to capture this diagnosis. In your clinical opinion is this patient being managed for: ( ) Acute blood loss anemia ( ) Other explanation of clinical findings (Please Explain) ( ) Unable to determine (Please Define) ( ) Need to Discuss ( ) Not Agree The medical record reflects the following clinical findings, treatment, and risk factors. Clinical Indicators: 86 yo male presenting with anemia secondary to acute loss. Treatment:IV protonix bolus the gtt, IV fluids, GI consult and EGD, tele, H/H q 6 hrs Risk Factors: age, gastric ulcers Please clarify and document your clinical opinion in the progress notes and discharge summary. Terms such as "probable", "suspected", "likely", "questionable", "possible", or "still to be ruled out" are acceptable. IF IN AGREEMENT, YOU MUST DOCUMENT ABOVE DIAGNOSTIC STATEMENT IN DAILY PROGRESS NOTES AND DISCHARGE SUMMARY. This document is not part of the patient's record. Thank You, Liz Madera RN [phone]
--- NOTE | 2016-11-18 12:34 | Clinical Documentation Query ---
CLINICAL DOCUMENTATION QUERY Dr. WAGGONER, Very minimal rewording needed to capture this diagnosis. In your clinical opinion is this patient being managed for: ( x ) Acute blood loss anemia ( ) Other explanation of clinical findings (Please Explain) ( ) Unable to determine (Please Define) ( ) Need to Discuss ( ) Not Agree The medical record reflects the following clinical findings, treatment, and risk factors. Clinical Indicators: 86 yo male presenting with anemia secondary to acute loss. Treatment:IV protonix bolus the gtt, IV fluids, GI consult and EGD, tele, H/H q 6 hrs Risk Factors: age, gastric ulcers Please clarify and document your clinical opinion in the progress notes and discharge summary. Terms such as "probable", "suspected", "likely", "questionable", "possible", or "still to be ruled out" are acceptable. IF IN AGREEMENT, YOU MUST DOCUMENT ABOVE DIAGNOSTIC STATEMENT IN DAILY PROGRESS NOTES AND DISCHARGE SUMMARY. This document is not part of the patient's record. Thank You, Liz Madera RN [phone]
[2016-11-18 15:07] LABS: HEMATOCRIT 29.5 % (42-52)
--- NOTE | 2016-11-18 15:15 | ECHOCARDIOGRAM REPORT ---
*NOTICE TO RECEIVING CONSTITUTION PARTY AGENCY This information is strictly Confidential and protected under [place] law. [place] law prohibits you from making any further disclosure of this information unless further disclosure is expressly permitted by the written consent of the person to whom it pertains or is authorized by law. A general authorization for the release of medical or other information is not sufficient for this purpose. Hospital accepts no responsibility if the information is made available to any other person, INCLUDING THE PATIENT. Interpretation Summary * Name: BRISA SWANSON Study Date: 11/18/2016 06:54 AM BP: 117/69 mmHg * Patient Location: [facility] HR: 72 * : 1930 (M/d/yyyy) Gender: Male Height: 67 in * Age: 86 yrs Ethnicity: [place] Weight: 200 lb * Ordering Physician: NATALIA. GILBERTO REY * Performed By: Marlys Banks * * Reason For Study: MURMURS * BSA: 2.0 m2 * -- Conclusions -- * 1. The left ventricle is normal in size. Left ventricular systolic function is normal. No regional wall motion abnormalities noted. EF 60-65%. 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 Grade I diastolic dysfunction, (abnormal relaxation pattern). * 2. Mild valvular aortic stenosis. * 3. Technically difficult study, enhanced with IV Definity. * 4. No prior study available for comparison. Procedure Details * A complete two-dimensional transthoracic echocardiogram was performed (2D, M-mode, Doppler and color flow Doppler). * The study was technically difficult. * There were technical limitations due to patient'spoor positioning * A contrast injection of Definity was performed to improve assessment of LV function. * Contrast was injected into an intravenous site in the right arm. * One vial of Definity ultrasound contrast was diluted in normal saline to a total volume of 10 ml. A total of '3' ml of solution was administered during imaging. * Lot # [id number] of Definity utilized for procedure. * Expiration date 12/07. * The attending nurse who injected the contrast agent was JUSTINA MCNALLY RN. Left Ventricle * The left ventricle is normal in size. * There is severe concentric left ventricular hypertrophy. * Ejection Fraction = 60-65%. * Left ventricular systolic function is normal. * No regional wall motion abnormalities noted. Right Ventricle * The right ventricle is normal in size and function. * The right ventricular systolic function is normal as assessed by tricuspid annular plane systolic excursion (TAPSE) (normal >1.5 cm). Atria * The left atrium is borderline dilated. * Right atrial size is normal. * There is no evidence of atrial septal defect, but resolution does not allow assessment for a patent foramen ovale. Mitral Valve * There is moderate mitral annular calcification. * There is no mitral valve stenosis. * Significant mitral regurgitation is absent. Tricuspid Valve * The tricuspid valve is not well visualized, but is grossly normal. * There is no tricuspid stenosis. * Significant tricuspid regurgitation is absent. Aortic Valve * Mild valvular aortic stenosis. * There is no significant aortic regurgitation. Pulmonic Valve * The pulmonary valve is inadequately visualized, but the Doppler data is adequate for interpretation. * There is no pulmonic valvular stenosis. * Trace pulmonic valvular regurgitation. Great Vessels * The aortic root is normal size. * Ascending aorta of normal dimension Pericardium/Pleural * There is no pericardial effusion. Great Vessels * Normal inferior vena cava size and collapsability with sniff indicates a normal right atrial pressure of 3 mmHg Left Ventricular Diastolic Function * Grade I diastolic dysfunction, (abnormal relaxation pattern). MMode 2D Measurements and Calculations IVSd 1.6 cm IVSs 2.3 cm LVIDd 4.0 cm LVIDs 2.7 cm LVPWd 1.6 cm LVPWs 1.9 cm IVS/LVPW 1.0 FS 32.5 % EDV(Teich) 69.0 ml ESV(Teich) 26.6 ml EF(Teich) 61.4 % EDV(cubed) 62.9 ml ESV(cubed) 19.3 ml EF(cubed) 69.2 % % IVS thick 36.9 % % LVPW thick 16.3 % LV mass(C)d 265.9 grams LV mass(C)dI 131.5 grams/m\S\2 LV mass(C)s 250.2 grams LV mass(C)sI 123.7 grams/m\S\2 CO(Teich) 2.9 l/min CI(Teich) 1.4 l/min/m\S\2 SV(Teich) 42.4 ml SI(Teich) 21.0 ml/m\S\2 CO(cubed) 3.0 l/min CI(cubed) 1.5 l/min/m\S\2 SV(cubed) 43.5 ml SI(cubed) 21.5 ml/m\S\2 Ao root diam 4.0 cm Ao root area 12.5 cm\S\2 LA dimension 2.9 cm asc Aorta Diam 3.3 cm LA/Ao 0.73 LVOT diam 2.5 cm LVOT area 4.7 cm\S\2 LVAd ap4 36.1 cm\S\2 LVLd ap4 8.6 cm EDV(MOD-sp4) 122.0 ml LVAs ap4 19.6 cm\S\2 LVLs ap4 7.2 cm ESV(MOD-sp4) 43.3 ml EF(MOD-sp4) 64.5 % LVAd ap2 30.9 cm\S\2 LVLd ap2 8.3 cm EDV(MOD-sp2) 99.2 ml LVAs ap2 17.2 cm\S\2 LVLs ap2 7.2 cm ESV(MOD-sp2) 35.0 ml EF(MOD-sp2) 64.7 % CO(MOD-sp4) 5.4 l/min CI(MOD-sp4) 2.6 l/min/m\S\2 SV(MOD-sp4) 78.7 ml SI(MOD-sp4) 38.9 ml/m\S\2 CO(MOD-sp2) 4.4 l/min CI(MOD-sp2) 2.2 l/min/m\S\2 SV(MOD-sp2) 64.2 ml SI(MOD-sp2) 31.7 ml/m\S\2 Doppler Measurements and Calculations MV E max una 92.6 cm/sec MV A max una 130.5 cm/sec MV E/A 0.71 MV dec time 0.37 sec Ao V2 max 270.1 cm/sec Ao max PG 29.2 mmHg Ao max PG (full) 24.7 mmHg Ao V2 mean 187.6 cm/sec Ao mean PG 16.0 mmHg Ao mean PG (full) 13.7 mmHg Ao V2 VTI 56.8 cm MARIANNA(I,A) 1.7 cm\S\2 MARIANNA(I,D) 1.7 cm\S\2 MARIANNA(V,A) 1.8 cm\S\2 MARIANNA(V,D) 1.8 cm\S\2 LV V1 max PG 4.4 mmHg LV V1 mean PG 2.3 mmHg LV V1 max 105.3 cm/sec LV V1 mean 69.7 cm/sec LV V1 VTI 20.4 cm SV(Ao) 708.1 ml SI(Ao) 350.2 ml/m\S\2 SV(LVOT) 96.1 ml SI(LVOT) 47.5 ml/m\S\2 PA V2 max 59.7 cm/sec PA max PG 1.4 mmHg
[2016-11-18] MEDS ORDERED: NURSING VERBAL MED ORDER ONE ×4 (17:15→23:15)
[2016-11-18 20:06] LABS: HEMATOCRIT 30.6 % (42-52)
[2016-11-18] MEDS ORDERED: LORAZEPAM INJ 0.5 MG in SYRINGE 0.75 ML IV ONE (20:15)
[2016-11-18] MEDS: PANTOprazole SOD 40 MG TAB PO SCH (20:42)
[2016-11-18] MEDS ORDERED: TROLAMINE SALICYLATE 10% CRM 255 APPLN/85 GM TUBE EXT PRN (23:00)
[2016-11-18] MEDS ORDERED: HALOPERIDOL LACTATE 5 MG/ML 1 ML VIAL IM ONE (23:45)
[2016-11-19 02:31] LABS: HEMATOCRIT 28.1 % (42-52)
[2016-11-19] MEDS ORDERED: HALOPERIDOL LACTATE 5 MG/ML 1 ML VIAL ONE (04:01)
[2016-11-19 07:15] VITALS: BP 139/74; PULSE 79; TEMP 36.5; O2SAT 97
[2016-11-19] MEDS ORDERED: PRT40 PO (08:01)
[2016-11-19 08:07] LABS: HEMATOCRIT 30.3 % (42-52); HEMATOCRIT 30.5 % (42-52); MEAN CELL VOLUME 94.4 fL (80-100); MEAN CORPUSCULAR HEMOGLOBIN 31.2 pg (25-34); MEAN PLATELET VOLUME 10.5 fL (7.4-10.4); PLATELET COUNT 107 K/uL (130-400); RED BLOOD COUNT 3.21 M/uL (4.7-6.1); WHITE BLOOD COUNT 5.02 K/uL (4.8-10.8)
--- NOTE | 2016-11-19 08:08 | Discharge Instructions ---
Discharge Instructions Date of Service Nov 19, 2016. Admission Reason for Admission: Acute Kidney Injury (Nilson), Anemia Discharge Discharge Diagnosis / Problem: UGI ulceration Discharge Goals Goal(s): Decrease discomfort, Diagnostic testing, Therapeutic intervention Activity Recommendations Activity Limitations: resume your previous activity . Instructions / Follow-Up Instructions / Follow-Up You were admitted to the hospital for acute upper GI bleeding. A scope was done of the stomach and revealed non bleeding ulcers. A biopsy was taken and results will be reviewed in the outpatient setting. You will be prescribed Protonix, a proton pump inhibitor which will help keep the acid secretions in the stomach down and prevent rebleeding. We recommend close follow up with your PCP and the GI doctor. We also discussed the mild aortic stenosis. The PCP will be informed and as this is mild this will require monitoring with an Echocardiogram as discussed. 1. Continue Protonix twice a day 2. Follow up with PCP and GI We wish you well Jing Win Current Hospital Diet Patient's current hospital diet: AHA Diet (Heart Healthy) Discharge Diet Recommended Diet: Regular Diet Procedures Procedures Performed: EGD Pending Studies Studies pending at discharge: yes List of pending studies: Biopsy of EGD Laboratory Results Results Past 24 Hours Test 11/18/16 14:27 11/18/16 19:55 11/19/16 02:24 11/19/16 07:51 Range/Units Hemoglobin 9.1 9.9 9.2 9.9 14.0-18.0 g/dL Hematocrit 29.5 30.6 28.1 30.5 42-52 % White Blood Count 5.02 4.8-10.8 K/uL Red Blood Count 3.21 4.7-6.1 M/uL Mean Corpuscular Volume 94.4 80-100 fL Mean Corpuscular Hemoglobin 31.2 25-34 pg Mean Corpuscular Hemoglobin Concent 33.0 32-36 g/dl RDW Standard Deviation 52.6 36.4-46.3 fL RDW Coefficient of Variation 15.3 11.5-14.5 % Platelet Count 107 130-400 K/uL Mean Platelet Volume 10.5 7.4-10.4 fL Medical Emergencies . Who to Call and When: Medical Emergencies: If at any time you feel your situation is an emergency, please call 911 immediately. . Non-Emergent Contact Non-Emergency issues call your: Primary Care Provider . . "Provider Documentation" section prepared by Erin Win. . VTE Core Measure Inpt VTE Proph given/why not?: SCD's
--- NOTE | 2016-11-19 08:17 | Discharge Summary ---
Discharge Summary Date of Service Nov 19, 2016. (Erin Win MD) Discharge Summary Admission Date: Nov 17, 2016 at 16:33 Discharge Date: Nov 19, 2016 Discharge Disposition: Home Principal Diagnosis: gastric ulcer with acute GI blood loss Immunizations: Have You Had Influenza Vaccine: No History of Tetanus Vaccine?: Unknown History of Pneumococcal: No History of Hepatitis B Vaccine: Unknown Procedures: EGD with biopsy Consultations: [facility] (Erin Win MD) Problems/Secondary Diagnoses: Severe Concentric Left Ventricular Hypertrophy (Nuha Gillis M.D.) Medication Reconciliation New Medications: Pantoprazole (Pantoprazole Sodium) 40 Mg Tab 40 MG PO BID for 30 Days, #60 TAB Continued Medications: Cholecalciferol (Vitamin D-1000) 1,000 Unit Tab 2000 UNITS PO DAILY Multivitamin (Multivitamin) Tab 1 TAB PO DAILY, TAB Ocuvite Preservision (Ocuvite Preservision) 1 Tab Tab 1 TAB PO DAILY, TAB Discontinued Medications: Ibuprofen Tab (Advil) 200 Mg Tab 200 MG PO for Pain, TAB Discharge Exam Patient is anxious for d/c. Agreeable and discussed instructions with . Reflected understanding of d/c instructions Review of Systems: Constitutional: No fever Eyes: No worsening of vision ENT: No hearing loss Respiratory: No cough, No sputum, No wheezing, No shortness of breath, No dyspnea on exertion, No dyspnea at rest Cardiovascular: No chest pain Abdomen: No pain, No nausea, No vomiting, No diarrhea, No constipation Musculoskeletal: No joint pain, No muscle pain Genitourinary - Male: No hematuria, No dysuria Neurologic: No memory loss, No weakness, No numbness/tingling, No balance problems Psychiatric: No depression symptoms Endocrine: No fatigue Hematologic / Lymphatic: No abnormal bleeding/bruising Integumentary: No rash (Erin Win MD) Doing well. desperate to go home. no vomiting, nausea Review of Systems: Constitutional: No fever Respiratory: No shortness of breath Cardiovascular: No chest pain Abdomen: No GI bleeding Physical Exam: General Appearance: no apparent distress Respiratory/Chest: lungs clear, no respiratory distress Cardiovascular: regular rate, rhythm Abdomen / GI: normal bowel sounds, non tender, soft Neurologic/Psychiatric: alert, oriented x 3 (Nuha Gillis M.D.) Hospital Course This is an 86 yo m with an acute GI bleed most likely upper in nature. He will be admitted for further evaluation and plan is for EGD today. As the patient is actively bleeding and there is an unknown murmur would be appropriate to assess the patient's CVS status as if there is underlying cardiovascular disease the parameters of hgb for transfusion may be more lenient. The patient's hgb remained at approx 9 throughout the admission. A non bleeding gastric ulceration was noted with 2 non bleeding superficial ulcers and patient was placed on protonix bid for d/c home. Currently pending biopsy results. Acute blood loss Anemia from gastric ulcers - Stable hgb at approx 9-10 during admission, BL 14 - EGD with biopsy- gastric ulcerations, pending biopsy results - protonix bid 40 mg rx given - recommend CBC follow up in 1 week MINOO most likely secondary to dehydration/ acute blood loss- resolved - recommend bmp recheck in 1 week New systolic murmur in the presence of acute blood loss - echo- mild aortic stenosis - recommend regular screening for DVT prophylaxis - SCD as chemical prophylaxis contraindicated FULL CODE Total Time Spent: Less than 30 minutes This includes examination of the patient, discharge planning, medication reconciliation, and communication with other providers. (Erin Win MD) Resident Physician Supervision Note: I was present with Dr. Win in bedside. I verified the escobar history and physical, reviewed labs and image studies, discussed the case with the resident and agree with the findings and care plan. Also, Severe LVH noted on echo. BP overall controlled but higher readings off and on. Total Time Spent: Greater than 30 minutes (40) (Nuha Gillis M.D.) Discharge Instructions Please refer to the electronic Patient Visit Report (Discharge Instructions) for additional information. (Erin Win MD) Additional Copies To Thomas Combs M.D.
[2016-11-19 08:46] LABS: BUN/CREATININE RATIO 16.8 (10-20); CALCIUM 8.8 mg/dl (8.5-10.1); CREATININE 1.1 mg/dl (0.60-1.40); POTASSIUM 3.9 mmol/L (3.5-5.1)
[2016-11-19] MEDS: PANTOprazole SOD 40 MG TAB PO SCH (09:00)
[2016-11-19] MEDS ORDERED: ACETAMINOPHEN 500 MG TAB PO ONE (10:00)
[2016-11-19] MEDS ORDERED: NURSING VERBAL MED ORDER ONE (10:00)
[2016-11-19 10:05] VITALS: BP 139/74; PULSE 79; TEMP 36.5; O2SAT 97
== END 2016-11-19 10:30 | disposition home or self-care (01) | DRG 378 ==
LOC: C.EDB 14:02 → C.2T 16:33 → ENRESERV 16:51 → C.MED 11-18 12:52 → C.MS4W 11-18 21:12
PROVIDERS: ADMIT Internal Medicine; ATTEND Family Medicine
PROC: 0DB68ZX Excision of Stomach, Via Natural or Artificial Opening Endoscopic, Diagnostic (ICD-10-PCS; principal; 2016-11-18 10:01)
DX: K25.4 Chronic or unspecified gastric ulcer with hemorrhage (principal); N17.9 Acute kidney failure, unspecified; D62 Acute posthemorrhagic anemia; E86.0 Dehydration; H35.30 Unspecified macular degeneration

== ENCOUNTER → 2017-02-02 | Outpatient (CLI) | payer OTHER ==
[~2017-02-02] MED LIST changes: +PRT40 PO
[2017-02-02 13:29] LABS: BASO % 0.3 %; BASO ABS # 0.02 K/uL (0-0.2); COMPLETE YES; EOS % 1.4 %; HEMATOCRIT 44.9 % (42-52); IG% 0.3 %; LYMPH % 36.6 %; LYMPH ABS # 2.11 K/uL (1.2-3.4); MEAN CELL VOLUME 97.8 fL (80-100); MEAN CORPUSCULAR HEMOGLOBIN 30.9 pg (25-34); MEAN CORPUSCULAR HGB CONC 31.6 g/dl (32-36); MONO % 15.8 %; NEUT % 45.6 %; PLATELET COUNT 132 K/uL (130-400); RED BLOOD COUNT 4.59 M/uL (4.7-6.1); WHITE BLOOD COUNT 5.76 K/uL (4.8-10.8)
[2017-02-02 13:48] LABS: BLOOD UREA NITROGEN 19 mg/dl (7-18); BUN/CREATININE RATIO 14.2 (10-20); CALCIUM 8.6 mg/dl (8.5-10.1); CARBON DIOXIDE 30 mmol/L (21-32); CHLORIDE 109 mmol/L (98-107); GLUCOSE 102 mg/dl (70-99); POTASSIUM 4.3 mmol/L (3.5-5.1); SODIUM 142 mmol/L (136-145)
[2017-02-02 13:53] LABS: FERRITIN 38.8 ng/ml (8.0-388.0)
== END | disposition home or self-care (01) ==
LOC: C.LABBC 09:48
PROVIDERS: ATTEND Internal Medicine
DX: G31.84 Mild cognitive impairment of uncertain or unknown etiology (principal)

== ENCOUNTER → 2017-08-01 | Outpatient (CLI) | payer OTHER ==
[2017-08-01 13:24] LABS: HEMATOCRIT 44.5 % (42-52); HEMOGLOBIN 14.7 g/dL (14.0-18.0); MEAN CELL VOLUME 92.9 fL (80-100); MEAN CORPUSCULAR HEMOGLOBIN 30.7 pg (25-34); RED CELL DISTRIBUTION WIDTH SD 51.8 fL (36.4-46.3); WHITE BLOOD COUNT 6.92 K/uL (4.8-10.8)
[2017-08-01 13:46] LABS: MEAN PLATELET VOLUME 12.7 fL (7.4-10.4); PLATELET COUNT 69 K/uL (130-400)
[2017-08-01 13:47] LABS: BASO % 0.1 %; BASO ABS # 0.01 K/uL (0-0.2); EOS % 0.9 %; EOS ABS # 0.06 K/uL (0-0.5); IG# 0.04 K/uL (0.00-0.02); LYMPH % 33.4 %; LYMPH ABS # 2.31 K/uL (1.2-3.4); MONO ABS # 1.73 K/uL (0.11-0.59); NEUT ABS # 2.77 K/uL (1.4-6.5)
[2017-08-01 13:52] LABS: BLOOD UREA NITROGEN 20 mg/dl (7-18); CALCIUM 9.1 mg/dl (8.5-10.1); CARBON DIOXIDE 28 mmol/L (21-32); CREATININE 1.29 mg/dl (0.60-1.40); GLUCOSE 104 mg/dl (70-99); POTASSIUM 4.4 mmol/L (3.5-5.1); SODIUM 141 mmol/L (136-145)
== END | disposition home or self-care (01) ==
LOC: C.LABBC 10:59
PROVIDERS: ATTEND Physician Assistant Medical
DX: E64.9 Sequelae of unspecified nutritional deficiency (principal)

== ENCOUNTER → 2017-10-01 | Outpatient (CLI) | payer OTHER ==
[2017-10-01 12:23] LABS: HEMATOCRIT 43.6 % (42-52); HEMOGLOBIN 14.5 g/dL (14.0-18.0); MEAN CELL VOLUME 90.6 fL (80-100); MEAN CORPUSCULAR HEMOGLOBIN 30.1 pg (25-34); MEAN CORPUSCULAR HGB CONC 33.3 g/dl (32-36); RED CELL DISTRIBUTION WIDTH CV 15.9 % (11.5-14.5); RED CELL DISTRIBUTION WIDTH SD 53.3 fL (36.4-46.3); WHITE BLOOD COUNT 6.05 K/uL (4.8-10.8)
[2017-10-01 12:50] LABS: MEAN PLATELET VOLUME 11.5 fL (7.4-10.4); PLATELET COUNT 53 K/uL (130-400)
== END | disposition home or self-care (01) ==
LOC: C.LAB 12:07
PROVIDERS: ATTEND Physician Assistant Medical
DX: D64.9 Anemia, unspecified (principal)

== ENCOUNTER → 2017-12-14 | Outpatient (CLI) | payer OTHER ==
[~2017-12-14] MED LIST changes: +PANT1TAB4 PO; -PRT40 PO
--- NOTE | 2017-12-14 15:13 | DIAGNOSTIC IMAGING REPORT ---
CT HEAD WITHOUT CONTRAST (CT) CLINICAL HISTORY: R42 Vertigo R03.0 Elevated blood pressure COMPARISON STUDY: MRI the brain dated 08/02/2016 TECHNIQUE: Axial CT of the brain is performed from the vertex to the skull base. IV contrast was not administered for this examination. A dose lowering technique was utilized adhering to the principles of ALARA. CT DOSE: 788.63 mGycm FINDINGS: No intra or extra-axial mass lesions are visualized. There is no CT evidence of acute cortical infarction. There is no evidence of midline shift. There is no acute hemorrhage. No calvarial fractures are visualized. There are patchy white matter hypodensities likely on a small vessel basis. There is no evidence of pathologic ventricular dilatation. There is no evidence of acute sinusitis IMPRESSION: No acute intracranial findings Electronically signed by: Sam Toure M.D. 12/14/2017 3:12 PM Dictated Date/Time: 12/14/2017 3:11 PM
[2017-12-14 15:39] LABS: MEAN CORPUSCULAR HGB CONC 32.9 g/dl (32-36)
[2017-12-14 15:53] LABS: HEMATOCRIT 46.2 % (42-52); HEMOGLOBIN 15.2 g/dL (14.0-18.0); MEAN CELL VOLUME 90.6 fL (80-100); MEAN CORPUSCULAR HEMOGLOBIN 29.8 pg (25-34); RED CELL DISTRIBUTION WIDTH CV 15.9 % (11.5-14.5); RED CELL DISTRIBUTION WIDTH SD 53.2 fL (36.4-46.3); WHITE BLOOD COUNT 6.08 K/uL (4.8-10.8)
[2017-12-14 16:17] LABS: BLOOD UREA NITROGEN 16 mg/dl (7-18); CALCIUM 9.2 mg/dl (8.5-10.1); CARBON DIOXIDE 29 mmol/L (21-32); CREATININE 1.23 mg/dl (0.60-1.40); GLUCOSE 100 mg/dl (70-99); POTASSIUM 4.2 mmol/L (3.5-5.1); SODIUM 140 mmol/L (136-145)
[2017-12-14 16:18] LABS: BASO % 0.2 %; BASO ABS # 0.01 K/uL (0-0.2); EOS % 0.5 %; EOS ABS # 0.03 K/uL (0-0.5); IG# 0.03 K/uL (0.00-0.02); LYMPH ABS # 1.64 K/uL (1.2-3.4); MONO % 21.4 %; NEUT % 50.4 %; NEUT ABS # 3.07 K/uL (1.4-6.5); PLATELET COUNT 39 K/uL (130-400)
== END | disposition home or self-care (01) ==
LOC: C.CTS 14:43
PROVIDERS: ATTEND Nurse Practitioner Adult Health
DX: R42 Dizziness and giddiness (principal); R03.0 Elevated blood-pressure reading, without diagnosis of hypertension; D69.6 Thrombocytopenia, unspecified

== ENCOUNTER 2018-01-01 05:33 | Inpatient (IN) | payer OTHER ==
[~2018-01-01] VITALS: Ht 170.2 cm; Wt 89.0 kg
[2018-01-01] MEDS ORDERED: PANTOprazole INJ 80 MG in DEXTROSE 5% 100ML IV STA (06:01)
--- NOTE | 2018-01-01 06:08 | EMERGENCY ROOM VISIT NOTE ---
History First contact with patient: 05:40 Chief Complaint: GI ASSESSMENT Stated Complaint: BLOOD IN STOOL History of Present Illness The patient is a 87 year old male who presents to the Emergency Room black stools. Patient with history of gastric ulcers and thrombocytopenia arrives for evaluation of black and tarry stools. This started this morning. Associated with some epigastric pain earlier which has resolved. He denies any current pain. Notes he had some joint pains and took Advil last night. thinks he looks a bit pale. He previously was on anti-acid but stopped it a few months ago. Denies other blood thinner use. No trauma nor injuries. Denies shob, cp, syncope, current abdominal pain, leg swelling, rashes, bruising nor other symptoms. No medications taken for bleeding this morning. Nothing makes better nor worse. No history of blood transfusions. No mosque nor other reasons why he would not want blood transfusion if necessary. Review of Systems See HPI for pertinent positives & negatives. A total of 10 systems reviewed and were otherwise negative. Past Medical/Surgical History Medical Problems: (1) MINOO (acute kidney injury) (2) Anemia (3) Severe concentric left ventricular hypertrophy Surgical Problems: (1) History of back surgery (2) Hx of cholecystectomy Family History FH: prostate cancer FATHER Social History Smoking Status: Never Smoker Drug Use: none Marital Status: Housing Status: unknown Occupation Status: retired Current/Historical Medications Scheduled Amlodipine (Norvasc), 5 MG PO DAILY Cholecalciferol (Vitamin D-1000), 2,000 UNITS PO DAILY Multivitamin (Multivitamin), 1 TAB PO DAILY Ocuvite Preservision (Ocuvite Preservision), 1 TAB PO DAILY Physical Exam Vital Signs Date Time Temp Pulse Resp B/P (MAP) Pulse Ox O2 Delivery O2 Flow Rate FiO2 01/01/18 07:00 95 Room Air 01/01/18 06:58 99 20 99/60 98 Room Air 01/01/18 05:51 107 01/01/18 05:36 36.5 103 18 100/66 96 Room Air Physical Exam GENERAL: Patient is well appearing and in no acute distress. EYES: Pale conjunctiva, no scleral icterus, unremarkable pupils. ENT: Mucous membranes moist, no nasal congestion. NECK: No masses appreciated, no meningismus, trachea is midline. RESPIRATORY: No dyspnea. Clear to auscultation and equal bilaterally. No wheeze , no rhonchi. CARDIOVASCULAR: Mild tachycardia. No murmurs, rubs, gallops appreciated. GASTROINTESTINAL: Abdomen soft, nontender, no peritonitis. Bowel sounds positive. No masses appreciated. RECTA: Black tarry stools which are heme positive. Moderately enlarged prostate non-tender, non-boggy. No masses/swelling/erythema. BACK: No midline tenderness, no CVA tenderness EXTREMITIES: Normal motion all extremities, no cyanosis, no edema. NEUROLOGIC: Alert and oriented, no acute motor or sensory deficits, no focal weakness, cranial nerves grossly intact. SKIN: No rash, no jaundice, no diaphoresis. Medical Decision & Procedures Laboratory Results Test 01/01/18 06:01 01/01/18 06:08 Immature Granulocyte % (Auto) 0.4 % White Blood Count 11.55 K/uL (4.8-10.8) Red Blood Count 3.77 M/uL (4.7-6.1) Hemoglobin 11.0 g/dL (14.0-18.0) Hematocrit 34.4 % (42-52) Mean Corpuscular Volume 91.2 fL (80-100) Mean Corpuscular Hemoglobin 29.2 pg (25-34) Mean Corpuscular Hemoglobin Concent 32.0 g/dl (32-36) Platelet Count 42 K/uL (130-400) Mean Platelet Volume 11.5 fL (7.4-10.4) Neutrophils (%) (Auto) 58.3 % Lymphocytes (%) (Auto) 15.6 % Monocytes (%) (Auto) 25.5 % Eosinophils (%) (Auto) 0.1 % Basophils (%) (Auto) 0.1 % Neutrophils # (Auto) 6.74 K/uL (1.4-6.5) Lymphocytes # (Auto) 1.80 K/uL (1.2-3.4) Monocytes # (Auto) 2.94 K/uL (0.11-0.59) Eosinophils # (Auto) 0.01 K/uL (0-0.5) Basophils # (Auto) 0.01 K/uL (0-0.2) Immature Granulocyte # (Auto) 0.05 K/uL (0.00-0.02) Prothrombin Time 12.4 SECONDS (9.0-12.0) Prothromb Time International Ratio 1.2 (0.9-1.1) Activated Partial Thromboplast Time 24.2 SECONDS (21.0-31.0) Partial Thromboplastin Ratio 0.9 Est Creatinine Clear Calc Drug Dose 32.4 ml/min Total Bilirubin 0.7 mg/dl (0.2-1) Direct Bilirubin 0.2 mg/dl (0-0.2) Aspartate Amino Transf (AST/SGOT) 20 U/L (15-37) Alanine Aminotransferase (ALT/SGPT) 20 U/L (12-78) Alkaline Phosphatase 68 U/L (45-117) Total Protein 6.2 gm/dl (6.4-8.2) Albumin 3.0 gm/dl (3.4-5.0) Lipase 148 U/L (73-393) Bedside Hemoglobin 10.5 g/dl (14.0-18.0) Bedside Hematocrit 31 % (42-52) Bedside Sodium 142 mEq/L (135-144) Bedside Potassium 4.9 mEq/L (3.3-5.0) Bedside Chloride 107 mEq/L (101-112) Bedside Total CO2 23 mEq/l (24-31) Bedside Blood Urea Nitrogen 95 mg/dl (7-18) Bedside Creatinine 1.8 mg/dl (0.6-1.3) Bedside Glucose (other) 127 mg/dl (70-99) Bedside Ionized Calcium (Katelynn) 1.17 mmol/l (1.12-1.32) Medications Administered Medications (Trade) Dose Ordered Sig/Jesi Route Start Time Stop Time Status Last Admin Dose Admin Pantoprazole Sodium 80 mg/ Dextrose 120 ml @ 480 mls/hr NOW STAT IV 01/01/18 06:01 01/01/18 06:15 DC 01/01/18 06:35 480 MLS/HR Pantoprazole Sodium 40 mg/ Dextrose 100 ml @ 20 mls/hr Q5H IV 01/01/18 06:15 01/31/18 11:14 01/02/18 02:17 20 MLS/HR Ondansetron HCl (Zofran Inj) 4 mg NOW STAT IV 01/01/18 07:10 01/01/18 07:11 DC 01/01/18 07:14 4 MG Ondansetron HCl (Zofran Inj) 4 mg Q6H PRN IV 01/01/18 07:45 01/31/18 07:44 01/01/18 17:20 4 MG Medical Decision Differential: Diverticulitis, AVM, Coagulopathy, Colitis, Malignancy, Upper GI bleed, Fissure, Hemorrhoids, amongst other pathologies entertained. 87 yr old male with history of gastric ulcers who self-stopped his Pantoprazole a few weeks/months ago and on top of this took some Advil yesterday. Arrives with black tarry stools and nausea. This is consistent with upper gi bleed as well as his history. He was started on IV Protonix. His Hgb is 11 and his BP is a bit on low side but not requiring emergent transfusion at current time. Avoid IV fluid bolus given already bleeding and dilution issues. Chronic thrombocytopenia stable. Otherwise CXR clear, EKG without ischemia and patient stable. Dr Banuelos of [place] [facility] consulted for further management/ treatment. Head Trauma GCS Score: 15 Medication Reconcilliation Current Medication List: was personally reviewed by me Blood Pressure Screening Patient's blood pressure: Low blood pressure Impression Primary Impression: Acute upper GI bleed Departure Information Referrals Thomas Combs M.D. (PCP) Patient Instructions My [facility]
[2018-01-01 06:10] LABS: HEMATOCRIT 34.4 % (42-52); MEAN CELL VOLUME 91.2 fL (80-100); MEAN CORPUSCULAR HEMOGLOBIN 29.2 pg (25-34); WHITE BLOOD COUNT 11.55 K/uL (4.8-10.8)
[2018-01-01 06:14] LABS: MEAN PLATELET VOLUME 11.5 fL (7.4-10.4); PLATELET COUNT 42 K/uL (130-400)
[2018-01-01 06:22] LABS: INR 1.2 (0.9-1.1); PTT PATIENT 24.2 SECONDS (21.0-31.0)
[2018-01-01 06:22] LABS: ISTAT CREATININE 1.8 mg/dl (0.6-1.3); ISTAT IONIZED CALCIUM 1.17 mmol/l (1.12-1.32); ISTAT POTASSIUM 4.9 mEq/L (3.3-5.0)
[2018-01-01 06:33] LABS: BASO % 0.1 %; BASO ABS # 0.01 K/uL (0-0.2); CALCIUM 8.3 mg/dl (8.5-10.1); CREATININE 1.68 mg/dl (0.60-1.40); EOS % 0.1 %; EOS ABS # 0.01 K/uL (0-0.5); IG# 0.05 K/uL (0.00-0.02); LYMPH % 15.6 %; MONO % 25.5 %; MONO ABS # 2.94 K/uL (0.11-0.59); NEUT % 58.3 %; NEUT ABS # 6.74 K/uL (1.4-6.5); POTASSIUM 4.8 mmol/L (3.5-5.1); TOTAL PROTEIN 6.2 gm/dl (6.4-8.2)
[2018-01-01] MEDS: PANTOprazole INJ 40 MG in DEXTROSE 5% 100ML IV SCH ×4 (06:35→20:36)
--- NOTE | 2018-01-01 07:07 | DIAGNOSTIC IMAGING REPORT ---
CHEST ONE VIEW PORTABLE CLINICAL HISTORY: GI Bleed, weak. COMPARISON STUDY: Chest radiograph March 11, 2016. FINDINGS: Lung volumes are normal. No pneumothorax or pleural effusion is present. Moderate cardiomegaly is unchanged. Mild bibasilar opacities favor atelectasis. There is no evidence for pulmonary edema. IMPRESSION: 1. No acute cardiopulmonary findings. 2. Stable cardiomegaly without evidence for pulmonary edema. 3. Mild bibasilar opacities, greater on the left, which favor atelectasis. Electronically signed by: Dylan Judge M.D. 01/01/2018 7:05 AM Dictated Date/Time: 01/01/2018 7:04 AM
[2018-01-01] MEDS ORDERED: ONDANSETRON INJ 2 MG/ML 2 ML VIAL IV STA (07:10)
[2018-01-01] MEDS ORDERED: AMLO5TAB3 PO (07:22)
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
[2018-01-01 08:45] VITALS: BP 105/68; PULSE 97; TEMP 36.7; O2SAT 95; Ht 170.2 cm; Wt 89.0 kg
[2018-01-01] MEDS ORDERED: PANTOprazole INJ 40 MG in SYRINGE 0 ML IV SCH (09:00)
--- NOTE | 2018-01-01 10:12 | Gastrointestinal Consultation ---
Gastrointestinal Consultation Date of Consultation: Jan 01, 2018 History of Present Illness Patient is a 87 year old male who presented to the ER with complaints of melena. He is a pleasant but very hard of hearing 87-year-old gentleman who provides history but his states that he has been in his usual state of health until she noticed that he had dark stools. Mr. Gillis states that this may have been going on for several days. He has some abdominal cramping pain but no overt sharp pain, no hematemesis, no coffee-ground emesis. Last episode of melena was prior to presenting to the emergency room and none since there or on the floor. He is not lightheaded, and is recently started antihypertensives as soon as 2 weeks ago. He does have a history of clean based gastric ulcers noted in October 2016 that had a similar presentation. His hemoglobin on presentation is 11 BUN is mildly elevated but he also has mildly worsened acute on top of chronic renal failure. In October 2016 his hemoglobin nadired at 9, he has a history of chronic thrombocytopenia. In the ER he was given Protonix and admitted to the floor for observation. Feels well and is resting. Per nursing on the floor he has had no issues over the last 2 hours since presenting up on the floor. He did self discontinue his PPI 2 months ago and has possibly been intermittently taking some nonsteroidal anti-inflammatories. Past Medical/Surgical History Medical Problems: (1) Acute upper GI bleed Status: Acute (2) Upper GI bleed Status: Acute Family History FH: prostate cancer FATHER Social History Smoking Status: Never Smoker Drug Use: none Marital Status: Housing Status: unknown Occupation Status: retired Allergies Coded Allergies: No Known Allergies (Verified , 01/01/18) Current Medications Home Meds and Scripts Medications Dose Route/Sig Max Daily Dose Days Date Category Norvasc (Amlodipine Besylate) 5 Mg Tab 5 Mg PO DAILY 01/01/18 Reported Ocuvite Preservision (Multivitamins/Minerals) 1 Tab Tab 1 Tab PO DAILY 02/09/14 Reported Vitamin D-1000 (Cholecalciferol) 1,000 Unit Tab 2,000 Units PO DAILY 02/09/14 Reported Multivitamin (Multivitamins) Tab 1 Tab PO DAILY 02/09/14 Reported Review of Systems Constitutional: No see HPI, No fever, No chills, No sweats, No weight loss, No weakness, No fatigue, No problem reported Eyes: No see HPI, No worsening of vision, No eye pain, No redness, No discharge , No diplopia, No problem reported ENT: No see HPI, No hearing loss, No unusual epistaxis, No nasal symptoms, No sore throat, No tinnitus, No dental problems, No trouble swallowing, No pain on swallowing, No problem reported Respiratory: No see HPI, No cough, No sputum, No wheezing, No shortness of breath, No dyspnea on exertion, No dyspnea at rest, No hemoptysis, No problem reported Cardiac: No see HPI, No chest pain, No orthopnea, No PND, No edema, No claudication, No palpitations, No problem reported Abdomen: + see HPI Musculoskeletal: No see HPI, No joint pain, No muscle pain, No swelling, No calf pain, No problem reported Male : No see HPI, No dysuria, No urinary frequency, No incontinence, No nocturia more than once/night, No slowing stream, No hematuria, No sexual dysfunction, No problem reported Neuro: No see HPI, No memory loss, No paralysis, No weakness, No numbness/ tingling, No vertigo, No balance problems, No problem reported Psych: No see HPI, No depression symptoms, No anhedonism, No anxiety, No insomnia, No substance abuse, No problem reported Physical Exam Date Time Temp Pulse Resp B/P (MAP) Pulse Ox O2 Delivery O2 Flow Rate FiO2 01/01/18 08:45 36.7 97 21 105/68 01/01/18 08:17 93 01/01/18 08:08 98 18 96/61 95 Room Air 01/01/18 07:00 95 Room Air 01/01/18 06:58 99 20 99/60 98 Room Air 01/01/18 05:51 107 01/01/18 05:36 36.5 103 18 100/66 96 Room Air General Appearance: WD/WN, no apparent distress ENT: normal ENT inspection Neck: supple, no adenopathy Respiratory/Chest: chest non-tender, lungs clear Cardiovascular: regular rate, rhythm, no edema, no gallop Abdomen: normal bowel sounds, non tender, soft Extremities: normal range of motion, non-tender Neurologic/Psych: principal consultant II-XII nml as tested Laboratory Results Last 24 Hours Test 01/01/18 06:01 01/01/18 06:08 White Blood Count 11.55 K/uL Red Blood Count 3.77 M/uL Hemoglobin 11.0 g/dL Hematocrit 34.4 % Mean Corpuscular Volume 91.2 fL Mean Corpuscular Hemoglobin 29.2 pg Mean Corpuscular Hemoglobin Concent 32.0 g/dl Platelet Count 42 K/uL Mean Platelet Volume 11.5 fL Neutrophils (%) (Auto) 58.3 % Lymphocytes (%) (Auto) 15.6 % Monocytes (%) (Auto) 25.5 % Eosinophils (%) (Auto) 0.1 % Basophils (%) (Auto) 0.1 % Neutrophils # (Auto) 6.74 K/uL Lymphocytes # (Auto) 1.80 K/uL Monocytes # (Auto) 2.94 K/uL Eosinophils # (Auto) 0.01 K/uL Basophils # (Auto) 0.01 K/uL RDW Standard Deviation 54.0 fL RDW Coefficient of Variation 16.0 % Immature Granulocyte % (Auto) 0.4 % Immature Granulocyte # (Auto) 0.05 K/uL Prothrombin Time 12.4 SECONDS Prothromb Time International Ratio 1.2 Activated Partial Thromboplast Time 24.2 SECONDS Partial Thromboplastin Ratio 0.9 Sodium Level 142 mmol/L Potassium Level 4.8 mmol/L Chloride Level 109 mmol/L Carbon Dioxide Level 21 mmol/L Anion Gap 12.0 mmol/L 18.0 mmol/L Blood Urea Nitrogen 98 mg/dl Creatinine 1.68 mg/dl Est Creatinine Clear Calc Drug Dose 32.4 ml/min Estimated GFR () 41.4 Estimated GFR (Non- 35.7 BUN/Creatinine Ratio 58.3 Random Glucose 128 mg/dl Calcium Level 8.3 mg/dl Total Bilirubin 0.7 mg/dl Direct Bilirubin 0.2 mg/dl Aspartate Amino Transf (AST/SGOT) 20 U/L Alanine Aminotransferase (ALT/SGPT) 20 U/L Alkaline Phosphatase 68 U/L Total Protein 6.2 gm/dl Albumin 3.0 gm/dl Lipase 148 U/L Bedside Hemoglobin 10.5 g/dl Bedside Hematocrit 31 % Bedside Sodium 142 mEq/L Bedside Potassium 4.9 mEq/L Bedside Chloride 107 mEq/L Bedside Total CO2 23 mEq/l Bedside Blood Urea Nitrogen 95 mg/dl Bedside Creatinine 1.8 mg/dl Bedside Glucose (other) 127 mg/dl Bedside Ionized Calcium (Katelynn) 1.17 mmol/l Impression Patient is a 87 year old male presenting with melena in the setting of prior history of ulcers as well as chronic thrombocytopenia. Plan It is difficult to completely to his states that she only noticed it today but does not know the previous days. Thus far his hemodynamics are stable, and his presentation would suggest no evidence of active ongoing GI bleeding. I agree with n.p.o., if he does well throughout the afternoon can start liquids. Suggest 2 large-bore IV, type and cross for 2 units, if has any further bleeding consider giving a transfusion of platelets. PPI infusion N.p.o. after midnight for anticipated EGD tomorrow. Please call with any change in clinical status or questions.
[2018-01-01 10:54] VITALS: BP 96/61; PULSE 91; TEMP 36.6; O2SAT 97
[2018-01-01] MEDS: SODIUM CHLORIDE 0.9% 1000ML 1,000 ML IV SCH ×2 (10:56→21:46)
[2018-01-01 13:48] LABS: HEMOGLOBIN 9.7 g/dL (14.0-18.0); MEAN CELL VOLUME 90.6 fL (80-100); MEAN CORPUSCULAR HEMOGLOBIN 29.3 pg (25-34); MEAN CORPUSCULAR HGB CONC 32.3 g/dl (32-36); MEAN PLATELET VOLUME 13.2 fL (7.4-10.4); PLATELET COUNT 50 K/uL (130-400); RED CELL DISTRIBUTION WIDTH CV 16.3 % (11.5-14.5); WHITE BLOOD COUNT 12.14 K/uL (4.8-10.8)
[2018-01-01] MEDS ORDERED: IV FLUIDS COMPLETED PRN (14:45)
[2018-01-01 15:50] VITALS: BP 93/59; PULSE 93; TEMP 36.6; O2SAT 96
[2018-01-01] MEDS ORDERED: NURSING VERBAL MED ORDER ONE (16:15)
[2018-01-01] MEDS: MoRPHine SULFATE 2 MG/ML CARP IV PRN (16:48)
[2018-01-01 17:05] VITALS: O2SAT 96
[2018-01-01] MEDS: ONDANSETRON INJ 2 MG/ML 2 ML VIAL IV PRN (17:20)
[2018-01-01 21:09] LABS: MEAN CORPUSCULAR HGB CONC 32.6 g/dl (32-36)
[2018-01-01 21:19] LABS: HEMATOCRIT 28.5 % (42-52); HEMOGLOBIN 9.3 g/dL (14.0-18.0); MEAN CELL VOLUME 90.5 fL (80-100); MEAN CORPUSCULAR HEMOGLOBIN 29.5 pg (25-34); RED CELL DISTRIBUTION WIDTH CV 16.5 % (11.5-14.5); RED CELL DISTRIBUTION WIDTH SD 54.9 fL (36.4-46.3); WHITE BLOOD COUNT 13.02 K/uL (4.8-10.8)
[2018-01-01 21:32] LABS: PLATELET COUNT 43 K/uL (130-400)
[2018-01-01 23:40] VITALS: BP 122/73; PULSE 89; TEMP 37; O2SAT 97
[2018-01-02] VITALS (9 sets, daily range): BP systolic 99–122; BP diastolic 57–67; PULSE 72–98; TEMP 36.3–37; O2SAT 95–98
[2018-01-02] MEDS: PANTOprazole INJ 40 MG in DEXTROSE 5% 100ML IV SCH ×3 (02:17→20:23)
[2018-01-02 06:59] LABS: MEAN CORPUSCULAR HGB CONC 32.9 g/dl (32-36)
[2018-01-02 07:02] LABS: HEMATOCRIT 25.2 % (42-52); HEMOGLOBIN 8.3 g/dL (14.0-18.0); MEAN CORPUSCULAR HEMOGLOBIN 29.6 pg (25-34); RED CELL DISTRIBUTION WIDTH CV 16.6 % (11.5-14.5); RED CELL DISTRIBUTION WIDTH SD 54.5 fL (36.4-46.3); WHITE BLOOD COUNT 13.87 K/uL (4.8-10.8)
[2018-01-02 07:24] LABS: MEAN PLATELET VOLUME 12.9 fL (7.4-10.4); PLATELET COUNT 46 K/uL (130-400)
[2018-01-02 07:29] LABS: CALCIUM 8.3 mg/dl (8.5-10.1); CREATININE 1.75 mg/dl (0.60-1.40); POTASSIUM 4.1 mmol/L (3.5-5.1)
--- NOTE | 2018-01-02 10:31 | Endo History and Physical ---
History & Physical Date of Service: Jan 02, 2018. Chief Complaint: Referring Physician: History of Present Illness Melena Past Surgical History Hx Cardiac Surgery: No Hx Abdominal Surgery: Yes (cholecystectomy) Hx Post-Op Nausea and Vomiting: No Hx Cancer Surgery: No Hx Thoracic Surgery: No Hx Orthopedic: Yes (lumbar stenosis) Hx Urinary Tract Surgery: No Social History Smoking Status: Never Smoker Hx Substance Use: No Hx Alcohol Use: No Allergies Coded Allergies: No Known Allergies (Verified , 01/02/18) Current Medications Reported Home Medications Medications Dose Route/Sig Max Daily Dose Days Date Category Norvasc (Amlodipine Besylate) 5 Mg Tab 5 Mg PO DAILY 01/01/18 Reported Ocuvite Preservision (Multivitamins/Minerals) 1 Tab Tab 1 Tab PO DAILY 02/09/14 Reported Vitamin D-1000 (Cholecalciferol) 1,000 Unit Tab 2,000 Units PO DAILY 02/09/14 Reported Multivitamin (Multivitamins) Tab 1 Tab PO DAILY 02/09/14 Reported Vital Signs Weight (Kilograms): 87.600 Height (Feet): 5 Height (Inches): 7.00 Date Time Temp Pulse Resp B/P (MAP) Pulse Ox O2 Delivery O2 Flow Rate FiO2 01/02/18 09:34 36.7 82 16 118/68 (85) 96 Room Air 01/02/18 07:09 37.0 80 18 107/67 (80) 97 Room Air 01/02/18 04:01 36.3 98 18 102/65 (77) 98 Room Air 01/01/18 23:40 37.0 89 18 122/73 (89) 97 Room Air 01/01/18 20:00 Room Air 01/01/18 17:05 96 Room Air 01/01/18 15:50 36.6 93 18 93/59 (70) 96 Room Air 01/01/18 10:54 36.6 91 18 96/61 (73) 97 Room Air Physical Exam General Appearance: no apparent distress Respiratory/Chest: Auscultation: breath sounds normal Cardiovascular: Heart Auscultation: RRR Abdomen: Inspection & Palpation: non-distended Assessment and Plan Stable for EGD
[2018-01-02] MEDS ORDERED: PROPOFOL IV EMULSION 10 MG/ML 20 ML VIAL ONE (11:06)
[2018-01-02] MEDS ORDERED: LIDOCAINE HCL 2% 2 ML VIAL (20MG/ML) ONE (11:06)
[2018-01-02] MEDS ORDERED: PHENYLEPHRINE 100MCG/ML 5ML SYR ONE (11:06)
--- NOTE | 2018-01-02 11:09 | GI REPORT ---
Patient Name: Graham Gillis Procedure Date: 01/02/2018 10:30 AM Date of : 1930 Admit Type: Inpatient Age: 87 Gender: Male Attending MD: David Banuelos MD Procedure: Upper GI endoscopy Providers: David Banuelos MD Referring MD: Jorge Mcneal, Thomas Combs Md Indications: Melena Medicines: Propofol per Anesthesia Complications: No immediate complications. Estimated Blood Loss: Estimated blood loss: none. Procedure: Pre-Anesthesia Assessment: - Prior to the procedure, a History and Physical was performed, and patient medications and allergies were reviewed. The patient is competent. The risks and benefits of the procedure and the sedation options and risks were discussed with the patient. All questions were answered and informed consent was obtained. Patient identification and proposed procedure were verified by the physician and the nurse in the procedure room. Mental Status Examination: alert and oriented. Airway Examination: normal oropharyngeal airway and neck mobility. Respiratory Examination: clear to auscultation. CV Examination: normal. ASA Grade Assessment: III - A patient with severe systemic disease. After reviewing the risks and benefits, the patient was deemed in satisfactory condition to undergo the procedure. The anesthesia plan was to use monitored anesthesia care (MAC). Immediately prior to administration of medications, the patient was re-assessed for adequacy to receive sedatives. The heart rate, respiratory rate, oxygen saturations, blood pressure, adequacy of pulmonary ventilation, and response to care were monitored throughout the procedure. The physical status of the patient was re-assessed after the procedure. After obtaining informed consent, the endoscope was passed under direct vision. Throughout the procedure, the patient's blood pressure, pulse, and oxygen saturations were monitored continuously. The scope was introduced through the mouth, and advanced to the second part of duodenum. The upper GI endoscopy was accomplished without difficulty. The patient tolerated the procedure well. Findings: The examined esophagus was normal. The Z-line was regular and was found 40 cm from the incisors. One non-bleeding superficial gastric ulcer with no stigmata of bleeding was found in the gastric antrum. The lesion was 5 mm in largest dimension. No blood seen in the entire exam. The surrounding area has evidence of prior healed large ulcer. A non-bleeding diverticulum was found in the gastric antrum. The duodenal bulb and second portion of the duodenum were normal. A large non-bleeding diverticulum was found in the area of the papilla. Impression: - Normal esophagus. - Z-line regular, 40 cm from the incisors. - Non-bleeding superficial gastric ulcer with no stigmata of bleeding. Evidence of a healed prior ulcer in the antrum. - Gastric diverticulum. - Normal duodenal bulb and second portion of the duodenum. Bile noted. - Non-bleeding duodenal diverticulum. - No specimens collected. Recommendation: - [facility]. - Soft diet today. - Use a proton pump inhibitor IV daily today. - Use Prilosec (omeprazole) 40 mg PO daily for 2 months. - Repeat upper endoscopy in 2 months to check healing. - If evidence of rebleeding or drop in H/H will plan for colonoscopy. David Banuelos MD 01/02/2018 11:09:19 AM This report has been signed electronically. Note Initiated On: 01/02/2018 10:30 AM Number of Addenda: 0 I attest to the content of the Intraoperative Record and orders documented therein, exceptions below {[id number]}
--- NOTE | 2018-01-02 11:36 | Anesthesiology Progress Note ---
Anesthesia Post Op Note Date & Time Jan 02, 2018 at 11:35 Vital Signs Pain Intensity: 0 Vital Signs Past 12 Hours Date Time Temp Pulse Resp B/P (MAP) Pulse Ox O2 Delivery O2 Flow Rate FiO2 01/02/18 11:31 70 16 104/61 (75) 99 Room Air 01/02/18 11:16 72 16 100/62 (75) 100 Room Air 01/02/18 11:06 72 16 100/59 (73) 96 Room Air 01/02/18 09:34 36.7 82 16 118/68 (85) 96 Room Air 01/02/18 07:09 37.0 80 18 107/67 (80) 97 Room Air 01/02/18 04:01 36.3 98 18 102/65 (77) 98 Room Air 01/01/18 23:40 37.0 89 18 122/73 (89) 97 Room Air Notes Mental Status: alert / awake / arousable, participated in evaluation Pt Amnestic to Procedure: Yes Nausea / Vomiting: adequately controlled Pain: adequately controlled Airway Patency, RR, SpO2: stable & adequate BP & HR: stable & adequate Hydration State: stable & adequate Anesthetic Complications: no major complications apparent
[2018-01-02] MEDS: MoRPHine SULFATE 2 MG/ML CARP IV PRN (12:58)
[2018-01-02] MEDS: SODIUM CHLORIDE 0.9% 1000ML 1,000 ML IV SCH (13:02)
[2018-01-02 15:52] LABS: HEMATOCRIT 23.2 % (42-52); HEMOGLOBIN 7.4 g/dL (14.0-18.0); MEAN CORPUSCULAR HGB CONC 31.9 g/dl (32-36); PLATELET COUNT 44 K/uL (130-400); RED CELL DISTRIBUTION WIDTH CV 16.8 % (11.5-14.5); RED CELL DISTRIBUTION WIDTH SD 55.1 fL (36.4-46.3); WHITE BLOOD COUNT 10.23 K/uL (4.8-10.8)
--- NOTE | 2018-01-02 16:01 | Progress Note ---
Subjective Date of Service: Jan 02, 2018. Subjective Pt evaluation today including: conversation w/ patient, conversation w/ family , physical exam, chart review, lab review, review of studies, conversation w/ identity management consultant, review of inpatient medication list Had EGD done this morning, mild lethargic, conversational, no complaint, Problem List Medical Problems: (1) Acute upper GI bleed Status: Acute (2) Upper GI bleed Status: Acute Review of Systems Constitutional: + problem reported (Not able to obtain because patient is a mild lethargic after the procedure,) Objective Vital Signs Date Time Temp Pulse Resp B/P (MAP) Pulse Ox O2 Delivery O2 Flow Rate FiO2 01/02/18 13:20 36.5 84 20 99/61 (74) 98 Room Air 01/02/18 11:43 79 16 116/64 (81) 98 Room Air 01/02/18 11:31 70 16 104/61 (75) 99 Room Air 01/02/18 11:16 72 16 100/62 (75) 100 Room Air 01/02/18 11:06 72 16 100/59 (73) 96 Room Air 01/02/18 10:05 87 115/67 (83) 01/02/18 09:35 85 109/57 (74) 01/02/18 09:34 36.7 82 16 118/68 (85) 96 Room Air 01/02/18 08:00 97 Room Air 01/02/18 07:09 37.0 80 18 107/67 (80) 97 Room Air 01/02/18 04:01 36.3 98 18 102/65 (77) 98 Room Air 01/01/18 23:40 37.0 89 18 122/73 (89) 97 Room Air 01/01/18 20:00 Room Air 01/01/18 17:05 96 Room Air Physical Exam General Appearance: WD/WN, no apparent distress, + obese Eyes: normal inspection, PERRL, EOMI, sclerae normal ENT: normal ENT inspection, hearing grossly normal, pharynx normal Neck: supple, no adenopathy, thyroid normal, no JVD, no carotid bruits, trachea midline Respiratory/Chest: chest non-tender, lungs clear, normal breath sounds, no respiratory distress, no accessory muscle use Cardiovascular: regular rate, rhythm, no edema, no gallop, no JVD, no murmur Abdomen: normal bowel sounds, non tender, soft, no organomegaly, no pulsatile mass Extremities: normal range of motion, non-tender, normal inspection, no pedal edema, no calf tenderness, normal capillary refill, pelvis stable Neurologic/Psychiatric: web engineer II-XII nml as tested, no motor/sensory deficits, alert, normal mood/affect, oriented x 3 Skin: normal color, warm/dry, no rash Lymphatic: no adenopathy Laboratory Results Last 24 Hours Test 01/01/18 20:59 01/02/18 06:31 01/02/18 14:59 White Blood Count 13.02 K/uL 13.87 K/uL 10.23 K/uL Red Blood Count 3.15 M/uL 2.80 M/uL 2.55 M/uL Hemoglobin 9.3 g/dL 8.3 g/dL 7.4 g/dL Hematocrit 28.5 % 25.2 % 23.2 % Mean Corpuscular Volume 90.5 fL 90.0 fL 91.0 fL Mean Corpuscular Hemoglobin 29.5 pg 29.6 pg 29.0 pg Mean Corpuscular Hemoglobin Concent 32.6 g/dl 32.9 g/dl 31.9 g/dl RDW Standard Deviation 54.9 fL 54.5 fL 55.1 fL RDW Coefficient of Variation 16.5 % 16.6 % 16.8 % Platelet Count 43 K/uL 46 K/uL 44 K/uL Platelet Estimate DECREASED DECREASED Mean Platelet Volume 12.9 fL 13.0 fL Sodium Level 145 mmol/L Potassium Level 4.1 mmol/L Chloride Level 115 mmol/L Carbon Dioxide Level 20 mmol/L Anion Gap 10.0 mmol/L Blood Urea Nitrogen 101 mg/dl Creatinine 1.75 mg/dl Est Creatinine Clear Calc Drug Dose 30.8 ml/min Estimated GFR () 39.4 Estimated GFR (Non- 34.0 BUN/Creatinine Ratio 57.8 Random Glucose 112 mg/dl Calcium Level 8.3 mg/dl Magnesium Level 2.3 mg/dl Assessment and Plan 79-year-old male admitted on January 01, 2018 with concern for upper GI bleeding with the use of NSAIDs, significant melena, and previous gastric ulcer Possible upper GI bleeding with the use of NSAIDs, significant melena, and previous gastric ulcer Patient has been on monitored unit, IV fluids be administered. GI input appreciated, EGD was done this morning, the report please see below, Normal esophagus. - Z-line regular, 40 cm from the incisors. - Non-bleeding superficial gastric ulcer with no stigmata of bleeding. Evidence of a healed prior ulcer in the antrum. - Gastric diverticulum. - Normal duodenal bulb and second portion of the duodenum. Bile noted. - Non-bleeding duodenal diverticulum. - No specimens collected. Recommendation: - [facility]. - Soft diet today. - Use a proton pump inhibitor IV daily today. - Use Prilosec (omeprazole) 40 mg PO daily for 2 months. - Repeat upper endoscopy in 2 months to check healing. - If evidence of rebleeding or drop in H/H will plan for colonoscopy. Acute on chronic blood loss anemia, recent hemoglobin was 7.4, will check at 9 PM, transfuse if hemoglobin continues to drop <7.4 HTN, patient currently is hypotensive, will hold blood pressure medication and continue follow-up, DC IV fluid, start diet per recommendation, Patient is a full code Continued [facility] stay due to: home environment unsafe for pt Discharge planning: home
[2018-01-02] MEDS ORDERED: BISACODYL 5 MG TABEC PO ONE (16:45)
[2018-01-02] MEDS ORDERED: LAVAGE SOLUTION 4000ML PO SCH (17:00)
[2018-01-02 21:20] LABS: HEMATOCRIT 23.7 % (42-52); HEMOGLOBIN 7.6 g/dL (14.0-18.0)
[2018-01-03] VITALS (9 sets, daily range): BP systolic 104–119; BP diastolic 56–77; PULSE 76–97; TEMP 36.3–37.3; O2SAT 95–100
[2018-01-03] MEDS: PANTOprazole INJ 40 MG in DEXTROSE 5% 100ML IV SCH ×2 (00:41→05:16)
[2018-01-03 06:46] LABS: CALCIUM 7.8 mg/dl (8.5-10.1); CREATININE 1.42 mg/dl (0.60-1.40); POTASSIUM 3.8 mmol/L (3.5-5.1)
[2018-01-03 08:33] LABS: HEMATOCRIT 20.5 % (42-52); HEMOGLOBIN 6.6 g/dL (14.0-18.0); MEAN CELL VOLUME 91.5 fL (80-100); MEAN CORPUSCULAR HEMOGLOBIN 29.5 pg (25-34); MEAN CORPUSCULAR HGB CONC 32.2 g/dl (32-36); RED CELL DISTRIBUTION WIDTH CV 16.8 % (11.5-14.5); RED CELL DISTRIBUTION WIDTH SD 55.1 fL (36.4-46.3)
[2018-01-03 08:52] LABS: BASO % 0.1 %; BASO ABS # 0.01 K/uL (0-0.2); EOS % 0.7 %; EOS ABS # 0.06 K/uL (0-0.5); LYMPH % 15.4 %; LYMPH ABS # 1.34 K/uL (1.2-3.4); MEAN PLATELET VOLUME 12.5 fL (7.4-10.4); MONO % 21.1 %; MONO ABS # 1.84 K/uL (0.11-0.59); NEUT % 61.6 %; NEUT ABS # 5.35 K/uL (1.4-6.5); PLATELET COUNT 38 K/uL (130-400)
[2018-01-03] MEDS: D5W AND 1/2NSS 1,000 ML IV SCH (09:21)
[2018-01-03] MEDS ORDERED: TAP WATER ENEMA PR SCH (10:15)
--- NOTE | 2018-01-03 10:29 | Gastroenterology Progress Note ---
Progress Note Date of Service: Jan 03, 2018 Subjective Pt evaluation today including: conversation w/ patient, conversation w/ family , physical exam, chart review, lab review, review of studies Patient only drank about half the bowel prep yesterday. He was productive of stool multiple times overnight, and is still not clear this morning. Stool was initially very dark, and now is brown by report Patient reports fatigue from being up last night. Reports mid-abdominal pain. Denies any n/v or heartburn. Hgb 6.6 this morning. To be transfused 2 units. Review of Systems Constitutional: No fever, No chills Eyes: No worsening of vision ENT: + hearing loss, + sore throat Respiratory: No cough, No shortness of breath Cardiac: No chest pain Abdomen: + see HPI Musculoskeletal: No joint pain Male : No dysuria Neuro: No problem reported Psych: No problem reported Heme: No abnormal bleeding/bruising Endo: No excessive thirst, No excessive urination Skin: No rash, No itch Medications Current Inpatient Medications Medications (Trade) Dose Ordered Sig/Jesi Route Start Time Stop Time Status Last Admin Dose Admin Ondansetron HCl (Zofran Inj) 4 mg Q6H PRN IV 01/01/18 07:45 01/31/18 07:44 01/01/18 17:20 4 MG Miscellaneous (Iv Fluids Completed) 1 ea PRN PRN N/A 01/01/18 14:45 01/01/19 14:44 Morphine Sulfate (MoRPHine SULFATE INJ) 2 mg Q4H PRN IV 01/01/18 16:15 01/15/18 16:14 01/02/18 12:58 2 MG Pantoprazole Sodium 40 mg/ Syringe 10 ml @ 5 mls/min DAILY@11 IV 01/03/18 11:00 02/02/18 10:59 Dextrose/Sodium Chloride 1,000 ml @ 50 mls/hr Q20H IV 01/03/18 08:30 02/02/18 08:29 01/03/18 09:21 50 MLS/HR Objective Vital Signs Date Time Temp Pulse Resp B/P (MAP) Pulse Ox O2 Delivery O2 Flow Rate FiO2 01/03/18 07:59 36.9 84 19 104/61 (75) 99 Room Air 01/03/18 03:12 36.7 97 18 108/77 (87) 97 Room Air 01/02/18 23:14 36.7 91 17 122/66 (84) 95 Room Air 01/02/18 20:07 36.6 93 17 106/60 (75) 95 Room Air 01/02/18 20:00 Room Air 01/02/18 16:06 36.4 72 16 107/62 (77) 95 Room Air 01/02/18 16:00 Room Air 01/02/18 13:20 36.5 84 20 99/61 (74) 98 Room Air 01/02/18 11:43 79 16 116/64 (81) 98 Room Air 01/02/18 11:31 70 16 104/61 (75) 99 Room Air 01/02/18 11:16 72 16 100/62 (75) 100 Room Air 01/02/18 11:06 72 16 100/59 (73) 96 Room Air Physical Exam General Appearance: no apparent distress Eyes: normal inspection ENT: hearing grossly normal Neck: supple Respiratory/Chest: lungs clear, normal breath sounds, no respiratory distress Cardiovascular: regular rate, rhythm Abdomen: normal bowel sounds, soft, + tenderness (mild, upper and mid- abdominal tenderness to palpation) Extremities: no pedal edema Neurologic/Psych: alert Skin: warm/dry, no rash Laboratory Results Last 24 Hours Test 01/02/18 14:59 01/02/18 21:04 01/03/18 05:54 White Blood Count 10.23 K/uL 8.70 K/uL Red Blood Count 2.55 M/uL 2.24 M/uL Hemoglobin 7.4 g/dL 7.6 g/dL 6.6 g/dL Hematocrit 23.2 % 23.7 % 20.5 % Mean Corpuscular Volume 91.0 fL 91.5 fL Mean Corpuscular Hemoglobin 29.0 pg 29.5 pg Mean Corpuscular Hemoglobin Concent 31.9 g/dl 32.2 g/dl RDW Standard Deviation 55.1 fL 55.1 fL RDW Coefficient of Variation 16.8 % 16.8 % Platelet Count 44 K/uL 38 K/uL Mean Platelet Volume 13.0 fL 12.5 fL Neutrophils (%) (Auto) 61.6 % Lymphocytes (%) (Auto) 15.4 % Monocytes (%) (Auto) 21.1 % Eosinophils (%) (Auto) 0.7 % Basophils (%) (Auto) 0.1 % Neutrophils # (Auto) 5.35 K/uL Lymphocytes # (Auto) 1.34 K/uL Monocytes # (Auto) 1.84 K/uL Eosinophils # (Auto) 0.06 K/uL Basophils # (Auto) 0.01 K/uL Immature Granulocyte % (Auto) 1.1 % Immature Granulocyte # (Auto) 0.10 K/uL Large Platelets 1+ Basophilic Stippling OCCASIONAL Sodium Level 147 mmol/L Potassium Level 3.8 mmol/L Chloride Level 115 mmol/L Carbon Dioxide Level 25 mmol/L Anion Gap 7.0 mmol/L Blood Urea Nitrogen 57 mg/dl Creatinine 1.42 mg/dl Est Creatinine Clear Calc Drug Dose 37.8 ml/min Estimated GFR () 50.7 Estimated GFR (Non- 43.8 BUN/Creatinine Ratio 39.8 Random Glucose 117 mg/dl Calcium Level 7.8 mg/dl Assessment and Plan Patient is an 87 year old male presenting with melena. Prior history of ulcers as well as chronic thrombocytopenia. s/p EGD with findings of a non-bleeding ulcer Patient was prepped yesterday for a colonoscopy today, however he only took half of the bowel prep and is not yet clear. Will place him back on clear liquids and re-prep with miralax. Plan for colonoscopy tomorrow. I performed a history and physical examination of the patient, including specifically soft, nontender abdomen, I have discussed the patient's management with Rayna Gonsalves PA-C. Please refer to the PA's note for the documented findings and plan of care. H/H stable. Colonoscopy tomorrow once adequately prepped.
[2018-01-03] MEDS: PANTOprazole INJ 40 MG in SYRINGE 0 ML IV SCH (12:05)
[2018-01-03] MEDS ORDERED: POLYETHYLENE GLYCER PWD 238 GM BTL PO SCH ×2 (13:00→21:00)
[2018-01-03] MEDS ORDERED: NURSING VERBAL MED ORDER ONE (13:45)
[2018-01-03] MEDS ORDERED: CHLORASEPTIC 1.4% SOLN 180 ML BTL MT PRN (14:00)
[2018-01-03 14:06] LABS: HEMATOCRIT 24.3 % (42-52); HEMOGLOBIN 7.8 g/dL (14.0-18.0)
--- NOTE | 2018-01-03 15:11 | Progress Note ---
Subjective Date of Service: Jan 03, 2018. Subjective Pt evaluation today including: conversation w/ patient, conversation w/ family , physical exam, chart review, lab review, review of studies, conversation w/ it infrastructure consultant, review of inpatient medication list Was having a rough night last night because prep for the colonoscopy feeling tired, Problem List Medical Problems: (1) Acute upper GI bleed Status: Acute (2) Upper GI bleed Status: Acute Review of Systems Constitutional: + weakness, + fatigue, No fever, No chills, No sweats, No weight loss, No problem reported Eyes: No worsening of vision, No eye pain, No redness, No discharge, No diplopia ENT: No hearing loss, No unusual epistaxis, No nasal symptoms, No sore throat, No tinnitus, No dental problems, No trouble swallowing Respiratory: No cough, No sputum, No wheezing, No shortness of breath, No dyspnea on exertion, No dyspnea at rest, No hemoptysis Cardiac: No chest pain, No orthopnea, No PND, No edema, No claudication, No palpitations Abdomen: No pain, No nausea, No vomiting, No diarrhea, No constipation Musculoskeletal: No joint pain, No muscle pain, No swelling, No calf pain Male : No dysuria, No urinary frequency, No incontinence, No nocturia more than once/night, No slowing stream, No hematuria Neurologic: No memory loss, No paralysis, No weakness, No numbness/tingling, No vertigo, No balance problems Psychiatric: No depression symptoms, No anhedonism, No anxiety, No insomnia, No substance abuse Heme: No abnormal bleeding/bruising, No clotting problems, No swollen lymph nodes, No night sweats Endo: No fatigue, No excessive thirst, No excessive urination Skin: No rash, No itch, No new/changing skin lesions, No color change, No bleeding Objective Vital Signs Date Time Temp Pulse Resp B/P (MAP) Pulse Ox O2 Delivery O2 Flow Rate FiO2 01/03/18 11:50 36.3 76 14 107/66 99 01/03/18 11:20 36.8 79 15 105/56 100 01/03/18 10:50 36.7 82 16 111/62 98 01/03/18 10:35 36.8 78 18 112/66 98 01/03/18 08:00 Room Air 01/03/18 07:59 36.9 84 19 104/61 (75) 99 Room Air 01/03/18 03:12 36.7 97 18 108/77 (87) 97 Room Air 01/02/18 23:14 36.7 91 17 122/66 (84) 95 Room Air 01/02/18 20:07 36.6 93 17 106/60 (75) 95 Room Air 01/02/18 20:00 Room Air 01/02/18 16:06 36.4 72 16 107/62 (77) 95 Room Air 01/02/18 16:00 Room Air Physical Exam General Appearance: WD/WN, no apparent distress, + obese, + pertinent finding ( Mild pale,) Eyes: normal inspection, PERRL, EOMI, sclerae normal ENT: normal ENT inspection, hearing grossly normal, pharynx normal Neck: supple, no adenopathy, thyroid normal, no JVD, no carotid bruits, trachea midline Respiratory/Chest: chest non-tender, normal breath sounds, no respiratory distress, no accessory muscle use, + decreased breath sounds Cardiovascular: regular rate, rhythm, no edema, no gallop, no JVD, no murmur Abdomen: normal bowel sounds, non tender, soft, no organomegaly, no pulsatile mass Extremities: normal range of motion, non-tender, normal inspection, no pedal edema, no calf tenderness, normal capillary refill, pelvis stable Neurologic/Psychiatric: security public safety officer II-XII nml as tested, no motor/sensory deficits, alert, normal mood/affect, oriented x 3 Skin: normal color, warm/dry, no rash Lymphatic: no adenopathy Laboratory Results Last 24 Hours Test 01/02/18 21:04 01/03/18 05:54 01/03/18 13:39 Hemoglobin 7.6 g/dL 6.6 g/dL 7.8 g/dL Hematocrit 23.7 % 20.5 % 24.3 % White Blood Count 8.70 K/uL Red Blood Count 2.24 M/uL Mean Corpuscular Volume 91.5 fL Mean Corpuscular Hemoglobin 29.5 pg Mean Corpuscular Hemoglobin Concent 32.2 g/dl Platelet Count 38 K/uL Mean Platelet Volume 12.5 fL Neutrophils (%) (Auto) 61.6 % Lymphocytes (%) (Auto) 15.4 % Monocytes (%) (Auto) 21.1 % Eosinophils (%) (Auto) 0.7 % Basophils (%) (Auto) 0.1 % Neutrophils # (Auto) 5.35 K/uL Lymphocytes # (Auto) 1.34 K/uL Monocytes # (Auto) 1.84 K/uL Eosinophils # (Auto) 0.06 K/uL Basophils # (Auto) 0.01 K/uL RDW Standard Deviation 55.1 fL RDW Coefficient of Variation 16.8 % Immature Granulocyte % (Auto) 1.1 % Immature Granulocyte # (Auto) 0.10 K/uL Large Platelets 1+ Basophilic Stippling OCCASIONAL Sodium Level 147 mmol/L Potassium Level 3.8 mmol/L Chloride Level 115 mmol/L Carbon Dioxide Level 25 mmol/L Anion Gap 7.0 mmol/L Blood Urea Nitrogen 57 mg/dl Creatinine 1.42 mg/dl Est Creatinine Clear Calc Drug Dose 37.8 ml/min Estimated GFR () 50.7 Estimated GFR (Non- 43.8 BUN/Creatinine Ratio 39.8 Random Glucose 117 mg/dl Calcium Level 7.8 mg/dl Assessment and Plan 79-year-old male admitted on January 01, 2018 with concern for upper GI bleeding with the use of NSAIDs, significant melena, and previous gastric ulcer Possible upper GI bleeding with the use of NSAIDs, significant melena, and previous gastric ulcer Had EGD done on January 02, 2018, per report, Non-bleeding superficial gastric ulcer with no stigmata of bleeding. Evidence of a healed prior ulcer in the antrum., Non-bleeding duodenal diverticulum., Continue PPI, GI was planned to have colonoscopy today, postponed to tomorrow because of poor prep Acute on chronic blood loss anemia, recent hemoglobin was 6.6 this morning, she got 1 unit blood transfusion after consent with the patient's , Hyponatremia, gentle D5 half NS as, and follow-up HTN, patient currently is hypotensive, will hold blood pressure medication and continue follow-up, Patient is a full code Continued [facility] stay due to: home environment unsafe for pt Discharge planning: home
[2018-01-03] MEDS: ONDANSETRON INJ 2 MG/ML 2 ML VIAL IV PRN (15:48)
[2018-01-04] MEDS: MoRPHine SULFATE 2 MG/ML CARP IV PRN (01:24)
[2018-01-04 03:55] VITALS: BP 108/62; PULSE 78; TEMP 37; O2SAT 96
[2018-01-04] MEDS: D5W AND 1/2NSS 1,000 ML IV SCH ×2 (04:28→23:45)
[2018-01-04 06:24] LABS: HEMATOCRIT 23.2 % (42-52); HEMOGLOBIN 7.7 g/dL (14.0-18.0); MEAN CELL VOLUME 91.3 fL (80-100); MEAN CORPUSCULAR HEMOGLOBIN 30.3 pg (25-34); MEAN CORPUSCULAR HGB CONC 33.2 g/dl (32-36); MEAN PLATELET VOLUME 12.6 fL (7.4-10.4); PLATELET COUNT 50 K/uL (130-400); RED CELL DISTRIBUTION WIDTH CV 16.8 % (11.5-14.5); RED CELL DISTRIBUTION WIDTH SD 54.9 fL (36.4-46.3); WHITE BLOOD COUNT 9.06 K/uL (4.8-10.8)
[2018-01-04 06:42] LABS: BASO % 0.1 %; BASO ABS # 0.01 K/uL (0-0.2); EOS % 0.1 %; EOS ABS # 0.01 K/uL (0-0.5); IG# 0.08 K/uL (0.00-0.02); LYMPH ABS # 1.36 K/uL (1.2-3.4); MONO % 26.7 %; MONO ABS # 2.42 K/uL (0.11-0.59); NEUT % 57.2 %; NEUT ABS # 5.18 K/uL (1.4-6.5)
[2018-01-04 06:56] LABS: CALCIUM 7.6 mg/dl (8.5-10.1); CREATININE 1.26 mg/dl (0.60-1.40); PHOSPHORUS 2.2 mg/dl (2.5-4.9); POTASSIUM 3.3 mmol/L (3.5-5.1)
--- NOTE | 2018-01-04 07:32 | Clinical Documentation Query ---
SUSHIL Willams : CLINICAL DOCUMENTATION QUERIES QUERY 1 OF 2 Patient is an 87 year old male admitted for evaluation of melena. Admission BUN and creatinine of 98 mg/dl and 1.68 mg/dl, with increase to 101 mg/dl and 1.75 mg/dl before improvement with IVF and free water. Values this a.m. (01/04) improved to 25 mg/dl and 1.26 mg/dl. Historical EMR demonstrates an estimated GFR range of > 30 and < 60 dating back to at least 12/04. As appropriate, consider clarification as suggested below. Thank you. In your clinical opinion is this patient being managed for: ( x) MINOO on CKD stage 3 ( ) Not Agree ( ) Other explanation of clinical findings (No explanation is considered a No Response) ( ) Unable to determine ( ) Need to Discuss (Phone CDS or qliq) (No discussion is considered a No Response) The medical record reflects the following clinical findings, treatment, and risk factors. Clinical Indicators: As above Treatment: IVF, Free water, serial chemistries, transfusion of PRBC's Risk Factors: Age, acute blood loss, and transient hypotension. QUERY 2 OF 2 Serum sodium noted to rise from 142 mmol/L to 147 mmol/L with administration of isotonic NSS solution. Yesterday (814), IVF were changed to D5 1/2 NSS and patient was ordered free water. As appropriate, consider documentation of this scenario as suggested below. Thank you. In your clinical opinion is this patient being managed for: ( ) Hypernatremia MINOO on CKD stage 3 ( ) Not Agree ( ) Other explanation of clinical findings (No explanation is considered a No Response) ( ) Unable to determine ( ) Need to Discuss (Phone CDS or qliq) (No discussion is considered a No Response) The medical record reflects the following clinical findings, treatment, and risk factors. Clinical Indicators: As above Treatment: D5 1/2NSS, free water, serial chemistries Risk Factors: NSS administration Please clarify and document your clinical opinion in the progress notes and discharge summary. Terms such as "probable", "suspected", "likely", "questionable", "possible", or "still to be ruled out" are acceptable. IF IN AGREEMENT, YOU MUST DOCUMENT ABOVE DIAGNOSTIC STATEMENT IN DAILY PROGRESS NOTES AND DISCHARGE SUMMARY. This document is not part of the patient's record. Thank You, Abdoulaye Harris, RN [phone]
[2018-01-04] MEDS ORDERED: POTASSIUM CHLORIDE 10 MEQ TABCR PO STA (07:57)
[2018-01-04 08:00] VITALS: BP 137/84; PULSE 78; TEMP 36.8; O2SAT 92
--- NOTE | 2018-01-04 11:10 | Progress Note ---
Progress Note Date of Service Jan 04, 2018. (Lindsey Bruce CRNP) Progress Note Pt is a 87 y/o male seen for anemia, melena. Hgb dropped from 11 at admission to 6 yesterday, 1U PRBC given, Hgb up to 7 this AM. INR was 1.2 on admission, Plt 50. EGD on 01/02/18 showed non bleeding gastric ulcers, also gastro/duodenum diverticuli. He is scheduled for colonoscopy evaluation today by Dr. Banuelos. Had completed bowel prep, RN reports stools clearing. He is NPO VS, labs reviewed. Pt's and [facility] requests him to not be disturbed in his sleep as he's been staying up all night. GI will give further recs after colonoscopy is completed today. (Lindsey Bruce, NELSON) I performed a history and physical examination of the patient, including specifically soft, nontender abdomen, I have discussed the patient's management with NELSON Xie. Please refer to the Nurse's note for the documented findings and plan of care. Colonoscopy today (David Banuelos M.D.)
[2018-01-04] MEDS: PANTOprazole INJ 40 MG in SYRINGE 0 ML IV SCH (11:13)
[2018-01-04] MEDS ORDERED: TEMAZEPAM 7.5 MG CAP PO PRN (13:00)
[2018-01-04] MEDS ORDERED: LIDOCAINE HCL 2% 2 ML VIAL (20MG/ML) ONE ×2 (14:15→15:00)
[2018-01-04] MEDS ORDERED: PROPOFOL IV EMULSION 10 MG/ML 20 ML VIAL ONE ×2 (14:15→15:00)
[2018-01-04] MEDS ORDERED: PHENYLEPHRINE HCL INJ 10 MG/ML VIAL ONE (15:00)
[2018-01-04] MEDS ORDERED: PHENYLEPHRINE 100MCG/ML 5ML SYR ONE (15:00)
--- NOTE | 2018-01-04 15:05 | GI REPORT ---
Patient Name: Graham Gillis Procedure Date: 01/04/2018 2:09 PM Date of : 1930 Admit Type: Inpatient Age: 87 Gender: Male Attending MD: David Banuelos MD Procedure: Colonoscopy Providers: David Banuelos MD Referring MD: Houston Constantino Indications: Melena Medicines: Monitored Anesthesia Care Complications: No immediate complications. Estimated Blood Loss: Estimated blood loss: none. Procedure: Pre-Anesthesia Assessment: - Prior to the procedure, a History and Physical was performed, and patient medications and allergies were reviewed. The patient is competent. The risks and benefits of the procedure and the sedation options and risks were discussed with the patient. All questions were answered and informed consent was obtained. Patient identification and proposed procedure were verified by the physician and the nurse in the procedure room. Mental Status Examination: alert and oriented. Airway Examination: normal oropharyngeal airway and neck mobility. Respiratory Examination: clear to auscultation. CV Examination: normal. ASA Grade Assessment: III - A patient with severe systemic disease. After reviewing the risks and benefits, the patient was deemed in satisfactory condition to undergo the procedure. The anesthesia plan was to use monitored anesthesia care (MAC). Immediately prior to administration of medications, the patient was re-assessed for adequacy to receive sedatives. The heart rate, respiratory rate, oxygen saturations, blood pressure, adequacy of pulmonary ventilation, and response to care were monitored throughout the procedure. The physical status of the patient was re-assessed after the procedure. After I obtained informed consent, the scope was passed under direct vision. Throughout the procedure, the patient's blood pressure, pulse, and oxygen saturations were monitored continuously. The Scope was introduced through the anus and advanced to the terminal ileum. The colonoscopy was performed without difficulty. The patient tolerated the procedure well. The quality of the bowel preparation was good. The terminal ileum, ileocecal valve, appendiceal orifice, and rectum were photographed. Findings: The perianal and digital rectal examinations were normal. A 20 mm polyp was found in the cecum. The polyp was sessile. The polyp was removed with a hot snare. Resection and retrieval were complete. Verification of patient identification for the specimen was done by the physician and nurse using the patient's name and date. To prevent bleeding after the polypectomy, four hemostatic clips were successfully placed (MR conditional). There was no bleeding at the end of the procedure. Multiple small and large-mouthed diverticula were found in the sigmoid colon. Non-bleeding internal hemorrhoids were found during retroflexion. The hemorrhoids were small. There is no endoscopic evidence of bleeding in the entire colon. Brwon stool noted. Impression: - One 20 mm polyp in the cecum, removed with a hot snare. Resected and retrieved. Clips (MR conditional) were placed. - Diverticulosis in the sigmoid colon. - Brown stool in the entire colon, no evidence of bleeding. - Non-bleeding internal hemorrhoids. Recommendation: - Discharge patient to home. - Await pathology results. - Resume regular diet today. - No aspirin, ibuprofen, naproxen, or other non-steroidal anti-inflammatory drugs for 7 days after polyp removal. - Repeat colonoscopy for surveillance based on pathology results. - Monitor H/H. - Consider Bleeding scan if any evidence of rebleeding. David Banuelos MD 01/04/2018 3:01:53 PM Note Initiated On: 01/04/2018 2:09 PM Number of Addenda: 0 I attest to the content of the Intraoperative Record and orders documented therein, exceptions below {[id number]}
--- NOTE | 2018-01-04 15:20 | Progress Note ---
Subjective Date of Service: Jan 04, 2018. Subjective Pt evaluation today including: conversation w/ patient, conversation w/ family , physical exam, chart review, lab review, review of studies, conversation w/ [employer] sales consultant, review of inpatient medication list Sitting up in chair, report tired, did not sleep well, did not sleep well last night because of continued prep, full colonoscopy Problem List Medical Problems: (1) Acute upper GI bleed Status: Acute (2) Upper GI bleed Status: Acute Review of Systems Constitutional: + weakness, + fatigue, No fever, No chills, No sweats, No weight loss, No problem reported Eyes: No worsening of vision, No eye pain, No redness, No discharge, No diplopia ENT: No hearing loss, No unusual epistaxis, No nasal symptoms, No sore throat, No tinnitus, No dental problems, No trouble swallowing Respiratory: No cough, No sputum, No wheezing, No shortness of breath, No dyspnea on exertion, No dyspnea at rest, No hemoptysis Cardiac: No chest pain, No orthopnea, No PND, No edema, No claudication, No palpitations Abdomen: No pain, No nausea, No vomiting, No diarrhea, No constipation Musculoskeletal: No joint pain, No muscle pain, No swelling, No calf pain Male : No dysuria, No urinary frequency, No incontinence, No nocturia more than once/night, No slowing stream, No hematuria Neurologic: No memory loss, No paralysis, No weakness, No numbness/tingling, No vertigo, No balance problems Psychiatric: No depression symptoms, No anhedonism, No anxiety, No insomnia, No substance abuse Heme: No abnormal bleeding/bruising, No clotting problems, No swollen lymph nodes, No night sweats Endo: No fatigue, No excessive thirst, No excessive urination Skin: No rash, No itch, No new/changing skin lesions, No color change, No bleeding Objective Vital Signs Date Time Temp Pulse Resp B/P (MAP) Pulse Ox O2 Delivery O2 Flow Rate FiO2 01/04/18 14:06 37.2 81 18 130/69 (89) 95 Room Air 01/04/18 08:00 36.8 78 18 137/84 (101) 92 01/04/18 08:00 Room Air 01/04/18 03:55 37.0 78 108/62 (77) 96 Room Air 01/04/18 00:00 Room Air 01/03/18 23:29 37.0 89 18 119/72 (88) 95 Room Air 01/03/18 20:00 Room Air 01/03/18 19:27 37.3 85 20 117/67 (84) 95 Room Air 01/03/18 17:11 36.5 88 18 109/59 (76) 97 Room Air Physical Exam General Appearance: WD/WN, no apparent distress, + obese Eyes: normal inspection, PERRL, EOMI, sclerae normal ENT: normal ENT inspection, hearing grossly normal, pharynx normal Neck: supple, no adenopathy, thyroid normal, no JVD, no carotid bruits, trachea midline Respiratory/Chest: chest non-tender, lungs clear, normal breath sounds, no respiratory distress, no accessory muscle use Cardiovascular: regular rate, rhythm, no edema, no gallop, no JVD, no murmur Abdomen: normal bowel sounds, non tender, soft, no organomegaly, no pulsatile mass Extremities: normal range of motion, non-tender, normal inspection, no pedal edema, no calf tenderness, normal capillary refill, pelvis stable Neurologic/Psychiatric: safety physician II-XII nml as tested, no motor/sensory deficits, alert, normal mood/affect, oriented x 3 Skin: normal color, warm/dry, no rash Lymphatic: no adenopathy Laboratory Results Last 24 Hours Test 01/03/18 20:21 01/04/18 05:56 Bedside Glucose 128 mg/dl White Blood Count 9.06 K/uL Red Blood Count 2.54 M/uL Hemoglobin 7.7 g/dL Hematocrit 23.2 % Mean Corpuscular Volume 91.3 fL Mean Corpuscular Hemoglobin 30.3 pg Mean Corpuscular Hemoglobin Concent 33.2 g/dl Platelet Count 50 K/uL Mean Platelet Volume 12.6 fL Neutrophils (%) (Auto) 57.2 % Lymphocytes (%) (Auto) 15.0 % Monocytes (%) (Auto) 26.7 % Eosinophils (%) (Auto) 0.1 % Basophils (%) (Auto) 0.1 % Neutrophils # (Auto) 5.18 K/uL Lymphocytes # (Auto) 1.36 K/uL Monocytes # (Auto) 2.42 K/uL Eosinophils # (Auto) 0.01 K/uL Basophils # (Auto) 0.01 K/uL RDW Standard Deviation 54.9 fL RDW Coefficient of Variation 16.8 % Immature Granulocyte % (Auto) 0.9 % Immature Granulocyte # (Auto) 0.08 K/uL Large Platelets 1+ Basophilic Stippling 1+ Sodium Level 146 mmol/L Potassium Level 3.3 mmol/L Chloride Level 115 mmol/L Carbon Dioxide Level 25 mmol/L Anion Gap 6.0 mmol/L Blood Urea Nitrogen 25 mg/dl Creatinine 1.26 mg/dl Est Creatinine Clear Calc Drug Dose 42.4 ml/min Estimated GFR () 58.6 Estimated GFR (Non- 50.6 BUN/Creatinine Ratio 20.0 Random Glucose 123 mg/dl Calcium Level 7.6 mg/dl Phosphorus Level 2.2 mg/dl Magnesium Level 2.1 mg/dl Assessment and Plan 79-year-old male admitted on January 01, 2018 with concern for upper GI bleeding with the use of NSAIDs, significant melena, and previous gastric ulcer Possible upper GI bleeding with the use of NSAIDs, significant melena, and previous hx of gastric ulcer Had EGD done on January 02, 2018, per report, Non-bleeding superficial gastric ulcer with no stigmata of bleeding. Evidence of a healed prior ulcer in the antrum., Non-bleeding duodenal diverticulum., Continue PPI, GI was planned to have colonoscopy yesterday, postponed to tomorrow because of poor prep Acute on chronic blood loss anemia, recent hemoglobin was 6.6 this morning, he got 1 unit blood transfusion after consent with the patient's , hemoglobin improved to 7.8, Hypernatremia, gentle D5 half NS as, and follow-up HTN, stable and follow-up Patient is going to do colonoscopy today because of not done yesterday with poor prep Patient is a full code Plan discharge home tomorrow if up and walk and doing well Continued [facility] stay due to: home environment unsafe for pt Discharge planning: home
--- NOTE | 2018-01-04 15:35 | Anesthesiology Progress Note ---
Anesthesia Post Op Note Date & Time Jan 04, 2018 at 15:34 Vital Signs Pain Intensity: 0.0 Vital Signs Past 12 Hours Date Time Temp Pulse Resp B/P (MAP) Pulse Ox O2 Delivery O2 Flow Rate FiO2 01/04/18 15:20 73 18 112/70 (84) 99 Room Air 01/04/18 15:05 69 16 118/61 (80) 100 Room Air 01/04/18 14:06 37.2 81 18 130/69 (89) 95 Room Air 01/04/18 08:00 36.8 78 18 137/84 (101) 92 01/04/18 08:00 Room Air 01/04/18 03:55 37.0 78 108/62 (77) 96 Room Air Notes Mental Status: alert / awake / arousable, participated in evaluation Pt Amnestic to Procedure: Yes Nausea / Vomiting: adequately controlled Pain: adequately controlled Airway Patency, RR, SpO2: stable & adequate BP & HR: stable & adequate Hydration State: stable & adequate Anesthetic Complications: no major complications apparent
[2018-01-04 16:00] VITALS: BP 109/65; PULSE 75; TEMP 36.7; O2SAT 100
--- NOTE | 2018-01-04 19:08 | Gastroenterology Progress Note ---
Gastroenterology Progress Note Colonoscopy showed a polyp that was resected and diverticulosis. No evidence of bleeding seen and stool was brown. His H/H is stable. Recommend: Advance diet. Monitor H/H If any evidence of rectal bleeding may consider a bleeding scan. Please recall GI if any questions or concerns.
[2018-01-04 19:48] VITALS: BP 112/66; PULSE 83; TEMP 36.7; O2SAT 96
[2018-01-05] VITALS (11 sets, daily range): BP systolic 101–150; BP diastolic 52–84; PULSE 78–93; TEMP 36.6–37.1; O2SAT 92–100
[2018-01-05 06:51] LABS: CALCIUM 7.5 mg/dl (8.5-10.1); CREATININE 1.17 mg/dl (0.60-1.40); POTASSIUM 3.3 mmol/L (3.5-5.1)
[2018-01-05] MEDS ORDERED: POTASSIUM CHLORIDE 10 MEQ TABCR PO STA (08:03)
[2018-01-05] MEDS ORDERED: PANT40TA PO (08:15)
[2018-01-05 08:56] LABS: HEMATOCRIT 21.2 % (42-52); HEMOGLOBIN 6.8 g/dL (14.0-18.0)
[2018-01-05] MEDS: PANTOprazole INJ 40 MG in SYRINGE 0 ML IV SCH (10:25)
--- NOTE | 2018-01-05 11:31 | DIAGNOSTIC IMAGING REPORT ---
ABDOMEN AND PELVIS CT WITH ORAL CONTRAST CT DOSE: 865.61 mGycm HISTORY: GI bleeding. TECHNIQUE: Multiaxial CT images of the abdomen and pelvis were performed following the use of oral contrast. A dose lowering technique was utilized adhering to the principles of ALARA. COMPARISON STUDY: Abdomen and pelvis CT 02/09/2014. FINDINGS: Bilateral lower lobe densities favor subsegmental atelectasis. No pneumoperitoneum. No pneumatosis. Degenerative changes within the lumbar spine. The heart is mildly enlarged. Small fat-containing bilateral inguinal hernias. Cholecystectomy. The unenhanced liver, spleen, adrenal glands, and pancreas are unremarkable. Stable 1 cm hypodense lesion within the upper pole the left kidney. There are few small bilateral peripelvic renal cysts. No hydronephrosis. The bladder is mildly distended, unchanged. The prostate gland remains mildly enlarged. Colonic diverticulosis. Mild focal bowel wall thickening and a few inflamed diverticula within the proximal sigmoid colon best seen on images 266 through 284. Minimal adjacent pericolonic fat stranding. Therefore, this favors mild acute diverticulitis. No abscess or perforation. No evidence for bowel obstruction. The appendix not identified and may be surgically absent. There are multiple surgical clips at the base of the cecum. Question mild focal thickening at the base of the cecum with minimal adjacent fat stranding. This is best seen on image 220. However, this could related to stool rather than bowel wall thickening. IMPRESSION: 1. Mild acute proximal sigmoid diverticulitis. No perforation or abscess at this time. 2. Questionable mild thickening versus retained stool at the base of the cecum. Clinical correlation recommended to assess for right lower quadrant pain and to exclude a site of colitis. 3. Follow-up colonoscopy can be performed to further evaluate the above bowel abnormalities and to exclude the possibility of an underlying colonic mass. 4. Additional findings as described above. Electronically signed by: Miguel Angel Steele M.D. 01/05/2018 11:30 AM Dictated Date/Time: 01/05/2018 11:19 AM
--- NOTE | 2018-01-05 15:14 | DIAGNOSTIC IMAGING REPORT ---
TAGGED RED BLOOD CELL GI BLEEDING SCAN CLINICAL HISTORY: GI bleeding. COMPARISON STUDY: CT of the abdomen and pelvis January 05, 2018. TECHNIQUE: Following the IV administration of 25 mCi of technetium 99m UltraTag labeled red blood cells, nuclear bleeding scan was performed. Anterior flow images were obtained every 2 seconds for a total 48 seconds. Anterior static images were obtained every 5 minutes for a total of 60 minutes. FINDINGS: Expected radiotracer distribution is noted. No abnormal foci of radiotracer uptake are noted. There is no evidence for active GI bleed during this 60 minute examination. IMPRESSION: No evidence for active GI bleed during this 60 minute examination. Electronically signed by: Dylan Judge M.D. 01/05/2018 3:12 PM Dictated Date/Time: 01/05/2018 3:09 PM
--- NOTE | 2018-01-05 15:18 | Progress Note ---
Subjective Date of Service: Jan 05, 2018. Subjective Pt evaluation today including: conversation w/ patient, conversation w/ family , physical exam, chart review, lab review, review of studies, review of inpatient medication list Had a colonoscopy done yesterday, Polyps removed, Generally feeling okay, out of bed to the chair, some dry cough, Fever and chills Problem List Medical Problems: (1) Acute upper GI bleed Status: Acute (2) Upper GI bleed Status: Acute Review of Systems Constitutional: No fever, No chills, No sweats, No weight loss, No weakness, No fatigue, No problem reported Eyes: No worsening of vision, No eye pain, No redness, No discharge, No diplopia ENT: No hearing loss, No unusual epistaxis, No nasal symptoms, No sore throat, No tinnitus, No dental problems, No trouble swallowing Respiratory: No cough, No sputum, No wheezing, No shortness of breath, No dyspnea on exertion, No dyspnea at rest, No hemoptysis Cardiac: No chest pain, No orthopnea, No PND, No edema, No claudication, No palpitations Abdomen: No pain, No nausea, No vomiting, No diarrhea, No constipation Musculoskeletal: No joint pain, No muscle pain, No swelling, No calf pain Male : No dysuria, No urinary frequency, No incontinence, No nocturia more than once/night, No slowing stream, No hematuria Neurologic: No memory loss, No paralysis, No weakness, No numbness/tingling, No vertigo, No balance problems Psychiatric: No depression symptoms, No anhedonism, No anxiety, No insomnia, No substance abuse Heme: No abnormal bleeding/bruising, No clotting problems, No swollen lymph nodes, No night sweats Endo: No fatigue, No excessive thirst, No excessive urination Skin: No rash, No itch, No new/changing skin lesions, No color change, No bleeding Objective Vital Signs Date Time Temp Pulse Resp B/P (MAP) Pulse Ox O2 Delivery O2 Flow Rate FiO2 01/05/18 11:38 36.8 80 18 115/63 (80) 98 Room Air 01/05/18 08:50 Room Air 01/05/18 07:12 37.1 93 18 101/55 (70) 96 Room Air 01/05/18 03:53 36.7 83 21 114/68 (83) 94 Room Air 01/05/18 01:04 Room Air 01/05/18 00:03 36.6 85 19 106/52 (70) 92 Room Air 01/04/18 20:00 Room Air 01/04/18 19:48 36.7 83 16 112/66 (81) 96 Room Air 01/04/18 16:00 Room Air 01/04/18 16:00 36.7 75 16 109/65 (80) 100 Room Air 01/04/18 15:35 73 20 120/65 (83) 99 Room Air 01/04/18 15:20 73 18 112/70 (84) 99 Room Air Physical Exam General Appearance: WD/WN, no apparent distress, + obese Eyes: normal inspection, PERRL, EOMI, sclerae normal ENT: normal ENT inspection, hearing grossly normal, pharynx normal Neck: supple, no adenopathy, thyroid normal, no JVD, no carotid bruits, trachea midline Respiratory/Chest: chest non-tender, normal breath sounds, no respiratory distress, no accessory muscle use, + decreased breath sounds Cardiovascular: regular rate, rhythm, no edema, no gallop, no JVD, no murmur Abdomen: normal bowel sounds, non tender, soft, no organomegaly, no pulsatile mass Extremities: normal range of motion, non-tender, normal inspection, no pedal edema, no calf tenderness, normal capillary refill, pelvis stable 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, no motor/sensory deficits, alert, normal mood/affect, oriented x 3 Skin: normal color, warm/dry, no rash Lymphatic: no adenopathy Laboratory Results Last 24 Hours Test 01/05/18 05:54 Hemoglobin 6.8 g/dL Hematocrit 21.2 % Sodium Level 144 mmol/L Potassium Level 3.3 mmol/L Chloride Level 114 mmol/L Carbon Dioxide Level 25 mmol/L Anion Gap 5.0 mmol/L Blood Urea Nitrogen 16 mg/dl Creatinine 1.17 mg/dl Est Creatinine Clear Calc Drug Dose 46.5 ml/min Estimated GFR () 64.1 Estimated GFR (Non- 55.3 BUN/Creatinine Ratio 13.6 Random Glucose 114 mg/dl Calcium Level 7.5 mg/dl Assessment and Plan 79-year-old male admitted on January 01, 2018 with concern for upper GI bleeding with the use of NSAIDs, significant melena, and previous gastric ulcer Today hemoglobin continues to drop, Possible upper GI bleeding with the use of NSAIDs, significant melena, and previous hx of gastric ulcer Had EGD done on January 02, 2018, per report, Non-bleeding superficial gastric ulcer with no stigmata of bleeding. Evidence of a healed prior ulcer in the antrum., Non-bleeding duodenal diverticulum., Continue PPI, Colonoscopy was done yesterday, polyp that was resected and diverticulosis. No evidence of bleeding seen and stool was brown. His H/H is stable. However this morning hemoglobin continues to drop which is 7.7 dropping to 6.8, patient denied chest pain shortness of breath, discuss with , will give 1 unit blood transfusion Also discussed with that we will order bleeding scan per recommendation of GI and will go from there, bleeding scan was done, will follow-up testing results Abdominal CT was done which shows diverticulitis which is mild,. will start Cipro and Flagyl, Acute on chronic blood loss anemia, recent hemoglobin was 6.6 this morning, he told got 2 unit blood transfusion after consent with the patient's , Hypernatremia, resolved, Clear liquid diet Hypokalemia was replaced HTN, stable and follow-up Patient is going to do colonoscopy today because of not done yesterday with poor prep Patient is a full code Follow-up GI bleeding scan, follow-up GI input Continued [facility] stay due to: home environment unsafe for pt Discharge planning: home
[2018-01-06 03:47] VITALS: BP 129/55; PULSE 90; TEMP 37.2; O2SAT 95
[2018-01-06 07:37] LABS: HEMATOCRIT 25.8 % (42-52); HEMOGLOBIN 8.5 g/dL (14.0-18.0); MEAN CELL VOLUME 90.5 fL (80-100); MEAN CORPUSCULAR HEMOGLOBIN 29.8 pg (25-34); MEAN CORPUSCULAR HGB CONC 32.9 g/dl (32-36); RED CELL DISTRIBUTION WIDTH CV 16.7 % (11.5-14.5); RED CELL DISTRIBUTION WIDTH SD 54.1 fL (36.4-46.3); WHITE BLOOD COUNT 9.39 K/uL (4.8-10.8)
[2018-01-06 07:46] LABS: MEAN PLATELET VOLUME 13.1 fL (7.4-10.4); PLATELET COUNT 59 K/uL (130-400)
[2018-01-06 07:56] VITALS: BP 136/71; PULSE 83; TEMP 36.9; O2SAT 100
[2018-01-06 08:01] LABS: CALCIUM 7.6 mg/dl (8.5-10.1); CREATININE 1.19 mg/dl (0.60-1.40); POTASSIUM 3.5 mmol/L (3.5-5.1)
[2018-01-06] MEDS: PANTOprazole INJ 40 MG in SYRINGE 0 ML IV SCH (10:40)
--- NOTE | 2018-01-06 12:09 | Discharge Instructions ---
Discharge Instructions Date of Service Jan 06, 2018. Admission Reason for Admission: Acute Upper Gi Bleed Discharge Discharge Diagnosis / Problem: upper GI bleeding with the use of NSAIDs, significant melena, anem Discharge Goals Goal(s): Decrease discomfort, Improve function, Increase independence, Improve disease control, Improve nutritional status, Learn about illness, Diagnostic testing, Therapeutic intervention, Prevent Disease Progression, Specific goals Activity Recommendations Activity Limitations: resume your previous activity . Instructions / Follow-Up Instructions / Follow-Up you possible have upper GI bleeding with the use of NSAIDs, significant melena, and previous hx of gastric ulcer Had EGD done on January 02, 2018, per report, Non-bleeding superficial gastric ulcer You need to continue Protonix, prescription has transmitted to your pharmacy Colonoscopy was done polyp that was resected and diverticulosis. You have acute blood loss anemia, Total got 2 unit blood transfusion bleeding scan was unremarkable you have mild diverticulitis , Continue Cipro and Flagyl for 7 days - you need to follow up with your primary care physician in 1 week, - take medication as instructed, never overdose or any misuse, or take with alcohol, because misuse of medicine may cause organ damage or , call me , or your primary care physician if have questions of discharge medicaitons. - call your primary care physician, or go to local emergency room if has any fever/chill, chest pain, shortness of breathing, nausea/vomiting/abdominal pain , facial droop/slurry speech/local weakness, or if has any questions. - fall precaution - diet as instructed - you need to follow up with your subspecialist, such as Dr. Perez (GI) Current Hospital Diet Patient's current hospital diet: AHA Diet (Heart Healthy) Discharge Diet Recommended Diet: AHA Diet (Heart Healthy) Procedures Procedures Performed: COLON WITH POLYP AND HEMASTASIS Pending Studies Studies pending at discharge: no Medical Emergencies . Who to Call and When: Medical Emergencies: If at any time you feel your situation is an emergency, please call 911 immediately. . Non-Emergent Contact Non-Emergency issues call your: Primary Care Provider, Any [employer]er . . "Provider Documentation" section prepared by Houston Duran. .
[2018-01-06] MEDS ORDERED: CIPROFLOXACIN 500 MG TAB PO STA (12:13)
[2018-01-06] MEDS ORDERED: METRONIDAZOLE 250 MG TAB PO ONE (12:15)
[2018-01-06] MEDS ORDERED: METR250T PO (12:16)
[2018-01-06] MEDS ORDERED: CPR500 PO (12:16)
[2018-01-06 12:43] VITALS: BP 126/72; PULSE 78; TEMP 36.9; O2SAT 90
[2018-01-06 13:02] VITALS: BP 126/72; PULSE 78; TEMP 36.9; O2SAT 90
--- NOTE | 2018-01-06 14:53 | Discharge Summary ---
Discharge Summary Date of Service Jan 06, 2018. Discharge Summary Admission Date: Jan 03, 2018 at 08:03 Discharge Date: Jan 06, 2018 Discharge Disposition: Home with services Principal Diagnosis: possible have upper GI bleeding with the use of NSAIDs, significant melena Problems/Secondary Diagnoses: Non-bleeding superficial gastric ulcer mild diverticulitis , Continue Cipro and Flagyl for 7 days Immunizations: Have You Had Influenza Vaccine: No History of Tetanus Vaccine?: Unknown History of Pneumococcal: No History of Hepatitis B Vaccine: Unknown Procedures: EGD, colonoscopy, Consultations: GI Medication Reconciliation New Medications: Ciprofloxacin (Ciprofloxacin HCl) 500 Mg Tab 500 MG PO Q12 for 7 Days Metronidazole (Flagyl) 250 Mg Tab 1 TAB PO TID for 7 Days, #21 TAB Pantoprazole Sodium (Protonix) 40 Mg Tab 1 TAB PO DAILY for 30 Days, #30 TAB 5 Refills Continued Medications: Cholecalciferol (Vitamin D-1000) 1,000 Unit Tab 2000 UNITS PO DAILY Multivitamin (Multivitamin) Tab 1 TAB PO DAILY, TAB Ocuvite Preservision (Ocuvite Preservision) 1 Tab Tab 1 TAB PO DAILY, TAB Discontinued Medications: Amlodipine (Norvasc) 5 Mg Tab 5 MG PO DAILY, TAB Discharge Exam Review of Systems: Constitutional: No fever, No chills, No sweats, No weight loss, No weakness , No fatigue, No problem reported Eyes: No worsening of vision, No eye pain, No redness, No discharge, No diplopia, No problem reported ENT: No hearing loss, No unusual epistaxis, No nasal symptoms, No sore throat, No tinnitus, No dental problems, No trouble swallowing, No problem reported Respiratory: No cough, No sputum, No wheezing, No shortness of breath, No dyspnea on exertion, No dyspnea at rest, No hemoptysis, No problem reported Cardiovascular: No chest pain, No orthopnea, No PND, No edema, No claudication, No palpitations, No problem reported Abdomen: No pain, No nausea, No vomiting, No diarrhea, No constipation, No GI bleeding, No problem reported Genitourinary - Female: No dysuria, No urinary frequency, No urinary urgency , No urinary incontinence, No urinary retention, No hematuria, No dysmenorrhea, No menorrhagia, No metrorrhagia, No rash, No vaginal bleeding, No vaginal discharge, No vaginal itching, No vulvodynia, No , No problem reported Genitourinary - Male: No hematuria, No dysuria, No urinary frequency, No urinary urgency, No urinary hesitancy, No urinary retention, No urinary incontinence, No penile discharge, No lesions, No impotence, No problem reported Neurologic: No memory loss, No paralysis, No weakness, No numbness/tingling , No vertigo, No balance problems, No problem reported Psychiatric: No depression symptoms, No anhedonism, No anxiety, No insomnia , No substance abuse, No problem reported Hematologic / Lymphatic: No abnormal bleeding/bruising, No clotting problems , No swollen lymph nodes, No night sweats, No problem reported Integumentary: No rash, No itch, No new/changing skin lesions, No color change, No bleeding, No problem reported Physical Exam: General Appearance: WD/WN Eyes: normal inspection ENT: normal ENT inspection Neck: supple Respiratory/Chest: chest non-tender, + decreased breath sounds Cardiovascular: regular rate, rhythm, no edema Abdomen / GI: normal bowel sounds, non tender, soft Extremities: normal inspection, no calf tenderness, normal capillary refill , no pedal edema 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, no motor/sensory deficits , alert, normal mood/affect Skin: normal color, warm/dry Hospital Course 79-year-old male admitted on January 01, 2018 with concern for upper GI bleeding with the use of NSAIDs, significant melena, and previous gastric ulcer Today hemoglobin continues improved after total 2 unit transfusion Possible upper GI bleeding with the use of NSAIDs, significant melena, and previous hx of gastric ulcer, has advised patient and family avoid NSAIDs, use Tylenol as needed Had EGD done on January 02, 2018, per report, Non-bleeding superficial gastric ulcer with no stigmata of bleeding. Evidence of a healed prior ulcer in the antrum., Non-bleeding duodenal diverticulum., Continue PPI, Colonoscopy was done January 05, 2018, polyp that was resected and diverticulosis. No evidence of bleeding seen and stool was brown. Yesterday morning hemoglobin continues to drop from 7.7 dropping to 6.8, patient denied chest pain shortness of breath, discuss with , got another 1 unit blood transfusion Because of dropping hemoglobin, bleeding scan per recommendation of GI was done which was unremarkable Abdominal CT was done which shows diverticulitis which is mild,. started Cipro and Flagyl, will give total 7 days, Acute on chronic blood loss anemia, recent hemoglobin was 6.6 this morning, he total got 2 unit blood transfusion after consent with the patient's , Hypernatremia, resolved, Clear liquid diet Hypokalemia was replaced HTN, stable and follow-up Patient is a full code follow-up GI input Instructions / Follow-Up you possible have upper GI bleeding with the use of NSAIDs, significant melena, and previous hx of gastric ulcer Had EGD done on January 02, 2018, per report, Non-bleeding superficial gastric ulcer You need to continue Protonix, prescription has transmitted to your pharmacy Colonoscopy was done polyp that was resected and diverticulosis. You have acute blood loss anemia, Total got 2 unit blood transfusion bleeding scan was unremarkable you have mild diverticulitis , Continue Cipro and Flagyl for 7 days - you need to follow up with your primary care physician in 1 week, - take medication as instructed, never overdose or any misuse, or take with alcohol, because misuse of medicine may cause organ damage or , call me , or your primary care physician if have questions of discharge medicaitons. - call your primary care physician, or go to local emergency room if has any fever/chill, chest pain, shortness of breathing, nausea/vomiting/abdominal pain , facial droop/slurry speech/local weakness, or if has any questions. - fall precaution - diet as instructed - you need to follow up with your subspecialist, such as Dr. Perez (GI) Total Time Spent: Greater than 30 minutes This includes examination of the patient, discharge planning, medication reconciliation, and communication with other providers. Discharge Instructions Please refer to the electronic Patient Visit Report (Discharge Instructions) for additional information. Additional Copies To Chris Perez MD; Thomas Combs M.D.
[2018-01-06] MEDS ORDERED: METRONIDAZOLE 250 MG TAB PO SCH (17:00)
[2018-01-06] MEDS ORDERED: CIPROFLOXACIN 500 MG TAB PO SCH (21:00)
--- NOTE | 2018-01-12 11:28 | EDITING REQUIRED CODING QUERY ---
CODING QUERY To promote full compliance with coding requirements relating to patient care, provider participation is requested in all cases of exhibit technician uncertainty. Please assist us with the question(s) below: Please clarify the meaning of MINOO. MINOO is not a valid abbreviation. Thank you. ( x ) Acute Kidney Injury ( x ) Present on admission ( ) Not present on admission ( ) Acute Kidney Insufficiency ( ) Present on admission ( ) Not present on admission ( ) Other (Specify): Principal Diagnosis: "_that condition established after study, to be chiefly responsible for occasioning the admission of the patient to the hospital for care." Co-Existing Principal Diagnosis: "_when two or more diagnoses equally meet the criteria for principal diagnosis as determined by the circumstances of admission, diagnostic work up, and/or therapy provided, and the Alphabetic Index, Tabular List, or another coding guideline does not provide sequencing direction, any one of the diagnoses may be sequenced first." "When the physician has documented what appears to be a current diagnosis in the body of the record, but has not included the diagnosis in the final diagnostic statement, the physician should be asked whether the diagnosis should be added." ([facility] 2 QTR90. p3-4)
== END 2018-01-06 13:42 | disposition home health service (06) | DRG 378 ==
LOC: C.EDB 05:34 → C.2T 07:47 → ENRESERV 08:14 → C.2T 01-02 10:24 → OBSVTOIN 01-03 08:03
PROVIDERS: ADMIT Internal Medicine; ATTEND Hospitalist
PROC: 0DJ08ZZ Inspection of Upper Intestinal Tract, Via Natural or Artificial Opening Endoscopic (ICD-10-PCS; principal; 2018-01-02 09:29)
PROC: 0DBH8ZX Excision of Cecum, Via Natural or Artificial Opening Endoscopic, Diagnostic (ICD-10-PCS; 2018-01-04 14:30)
DX: K92.1 Melena (principal); K57.32 Diverticulitis of large intestine without perforation or abscess without bleeding; N17.9 Acute kidney failure, unspecified; D62 Acute posthemorrhagic anemia; E87.1 Hypo-osmolality and hyponatremia; E87.0 Hyperosmolality and hypernatremia; T39.315A Adverse effect of propionic acid derivatives, initial encounter; K25.9 Gastric ulcer, unspecified as acute or chronic, without hemorrhage or perforation; K31.4 Gastric diverticulum; D12.0 Benign neoplasm of cecum; E87.6 Hypokalemia; I12.9 Hypertensive chronic kidney disease with stage 1 through stage 4 chronic kidney disease, or unspecified chronic kidney disease; N18.3 Chronic kidney disease, stage 3 (moderate); D50.0 Iron deficiency anemia secondary to blood loss (chronic); D69.6 Thrombocytopenia, unspecified; Z87.19 Personal history of other diseases of the digestive system; Z79.899 Other long term (current) drug therapy

== ENCOUNTER 2018-07-27 10:28 | Inpatient (IN) ==
[2018-07-27] MEDS ORDERED: ONDANSETRON INJ 2 MG/ML 2 ML VIAL IV PRN (11:15)
[2018-07-27] MEDS ORDERED: ALUMINUM/MAGNESIUM SUSP 30 ML UDC PO PRN (11:15)
[2018-07-27] MEDS ORDERED: ACETAMINOPHEN 325 MG TAB PO SCH (11:15)
[2018-07-27] MEDS ORDERED: MoRPHine SULFATE 4 MG/ML 1 ML CARP\\VIAL IV PRN (11:17)
[2018-07-27 11:52] LABS: Albumin Level 3.2 gm/dl (3.4-5.0); BUN Creatinine Ratio 16.5 (10-20); Calcium 8.2 mg/dl (8.5-10.1); Creatinine Clr Calc Pharmacy 41.9 ml/min; Est GFR (African American) 58.2; Est GFR (Non-African American) 50.2; Potassium 4.2 mmol/L (3.5-5.1)
[2018-07-27 11:56] LABS: Albumin Globulin Ratio 0.9 (0.9-2); Bilirubin,Total 0.6 mg/dl (0.2-1); Globulin 3.6 gm/dl (2.5-4.0); Total Protein 6.8 gm/dl (6.4-8.2)
[2018-07-27 12:08] LABS: Hematocrit (blood only) 35.6 % (42-52); Hemoglobin 11.7 g/dL (14.0-18.0); Mean Corpuscular Hgb Conc 32.9 g/dL (32-36); Mean Corpuscular Volume 94.2 fL (80-100); Mean Platelet Volume 10.6 fL (7.4-10.4); Platelet Count 34 K/uL (130-400); RDW Coefficient of Variation 23.8 % (11.5-14.5); RDW Standard Deviation 81.9 fL (36.4-46.3); Red Blood Count 3.78 M/uL (4.7-6.1); White Blood Count 1.94 K/uL (4.8-10.8)
[2018-07-27 12:09] LABS: Immature Granulocytes # (auto) 0.01 K/uL (0.00-0.02); Immature Granulocytes % (auto) 0.5 %; Lymphocytes # (auto) 1.11 K/uL (1.2-3.4); Lymphocytes % (auto) 57.2 %; Monocytes # (auto) 0.14 K/uL (0.11-0.59); Monocytes % (auto) 7.2 %; Neutrophils # (auto) 0.68 K/uL (1.4-6.5); Neutrophils % (auto) 35.1 %
[2018-07-27] MEDS: MoRPHine SULFATE 4 MG/ML 1 ML CARP\\VIAL IV PRN ×2 (12:53→19:16)
[2018-07-27] MEDS: ACETAMINOPHEN 500 MG TAB PO SCH ×2 (13:23→20:06)
[2018-07-27] MEDS: GABAPENTIN 100 MG CAP PO SCH ×2 (13:24→20:06)
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
[2018-07-27] MEDS: TRAMADOL HCL 50 MG TABLET PO SCH (20:06)
[2018-07-27] MEDS ORDERED: TRAZODONE HCL 50 MG TAB PO SCH ×2 (21:00)
--- NOTE | 2018-07-27 21:59 | Magnetic Resonance Report ---
Brain MRI WITHOUT CONTRAST HISTORY: hallucinations h/o squamous cell carcinoma TECHNIQUE: Multiplanar multisequence MRI of the brain was performed without the use of contrast. COMPARISON STUDY: Head CT 03/14/2019. Brain MRI 08/02/2016. FINDINGS: Punctate focus of restricted diffusion within the right cerebellar hemisphere on image 6. T his is consistent with an acute lacunar infarct. There is a second punctate focus of restricted diffu greg within the right parietal lobe on image 19 which could represent an additional punctate infarct. There is no mass, hematoma, or midline shift. Mild mucosal thickening within the ethmoid air cells. The mastoid air cells are clear. The ventricles and sulci demonstrate mild age-related involutional c hanges. Scattered foci of T2 hyperintensity seen within the periventricular and subcortical white mat ter are nonspecific but suggestive of moderate microvascular ischemic changes. The major vascular shyanne w voids at the skull base are well-maintained. IMPRESSION: 1. Punctate acute lacunar infarct within the right cerebellar hemisphere. 2. Possible second punctate infarct within the right parietal lobe at the high convexity. 3. Atrophy and microvascular ischemic changes are noted. Electronically signed by: Miguel Angel Steele M.D. 07/27/2018 9:56 PM
--- NOTE | 2018-07-27 22:21 | Magnetic Resonance Report ---
LUMBAR SPINE MRI HISTORY: radicular left leg pain TECHNIQUE: Multiplanar multisequence MRI of the lumbar spine was performed without the use of contras t. COMPARISON: None. FINDINGS: For the purpose of the report the L5-S1 disc space will be located on axial image 27 of 30. Motion artifact within the axial sequences resulting and difficult evaluation. Mild dextroscoliosis o f the lumbar spine. No fracture or subluxation. The conus terminates at the T12-L1 disc space level. Paraspinal soft tissues are unremarkable. Severe disc space narrowing at L4-L5. Mild disc space narro wing at L3-L4. Moderate disc space narrowing at L5-S1. Moderate facet degenerative changes throughout the lumbar spine. Mild subcutaneous edema within the lumbar region. Endplate osteophytes throughout the lower thoracic and lumbar spine. L1-L2: Broad-based posterior disc bulge with facet hypertrophy resulting in xdns-om-htghqryo central canal and mild bilateral neural foraminal narrowing. L2-L3: Small broad-based posterior disc bulge with facet hypertrophy resulting in mild central canal and mild left-sided neural foraminal narrowing. L3-L4: Broad-based posterior disc bulge with ligamentum and facet hypertrophy resulting in moderate c entral canal and moderate bilateral neural foraminal narrowing. L4-L5: Broad-based posterior disc osteophyte complex with facet hypertrophy resulting in moderate magda tral canal and moderate right neural foraminal narrowing. There is mild left-sided neural foraminal n arrowing. Possible right paracentral disc protrusion. However, this may represent an overhanging oste ophyte or the facet hypertrophy. This is not well characterized due to the significant motion artifac t. This is best seen on axial image 22. L5-S1: Mild central canal narrowing due to the facet hypertrophy. There is also moderate right and mi ld left neural foraminal narrowing. IMPRESSION: 1. Suboptimal evaluation of the lumbar spine due to the extensive motion artifact on the axial sequen macarena. 2. Multilevel degenerative changes as described above resulting in gigm-ss-tirvodip central canal ellen rowing. 3. Possible right paracentral focal disc protrusion at L4-L5. However, this could be due to an endpla te osteophyte or the facet hypertrophy. This difficult to characterize due to the motion artifact. Electronically signed by: Miguel Angel Steele M.D. 07/27/2018 10:18 PM
[2018-07-28] MEDS: ACETAMINOPHEN 500 MG TAB PO SCH ×3 (04:30→22:06)
[2018-07-28] MEDS: LORazepam 0.5 MG/1 ML VIAL IV PRN ×2 (07:26→23:27)
[2018-07-28] MEDS: GABAPENTIN 100 MG CAP PO SCH ×2 (07:30→22:05)
[2018-07-28] MEDS: PANTOprazole 40 MG TAB PO SCH (07:30)
[2018-07-28] MEDS: TRAMADOL HCL 50 MG TABLET PO SCH ×2 (07:32→22:09)
[2018-07-28] MEDS ORDERED: PHARMACIST DISCHARGE MED REC CONSULT PRN (08:38)
[2018-07-28] MEDS ORDERED: ASPIRIN 325 MG ECTAB PO SCH (09:00)
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
[2018-07-28 10:34] LABS: Estimated Average Glucose 120 mg/dl; Hemoglobin A1C 5.8 % (4.5-5.6)
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
[2018-07-28] MEDS: MoRPHine SULFATE 4 MG/ML 1 ML CARP\\VIAL IV PRN (11:43)
[2018-07-28] MEDS: MENTHOL-ZINC OXIDE 360 APPLN/120 GM TUBE EXT SCH ×2 (11:45→22:06)
[2018-07-28] MEDS: ATORVASTATIN 40 MG TAB PO SCH (11:47)
--- NOTE | 2018-07-28 16:00 | Hospitalist Progress Note ---
Date of Service July 28, 2018 Assessment & Plan (1) Radicular leg pain: Patient be observed patient is difficult to disturb and leg pain. Does not appear to be consistent with postherpetic neuralgia and has been refractory to multiple outpatient attempts at improving his pain. We will begin with scheduled Tylenol, as needed opiates, trazodone for sleep, lumbar spine in case this is a mechanical radicular pain. We will consider steroids Patient hallucinations can also definitely be from medications however given his previous history of malignancy concern for metastatic disease could also be undertaken. Pursue MRI of the brain ruled out metastatic disease but did show small acute infarction MRI of his LS spine only showed some right-sided changes and mild to moderate spinal stenosis but nothing significant to explain his radicular left leg discomfort we will continue to pursue pain relief as listed above but will try to control his sundowning behavior which seems to also be a time when his pain is exacerbated (2) CVA (cerebral vascular accident): Patient an incidental finding of acute punctate CVA on MRI of his brain. We will institute aspirin therapy and atorvastatin will control secondary risk factors of hypertension have neurology consultation. The patient exhibited no initial focal deficits or speech related problems of a bedside speech screening test. His is informed of these results (3) Sundowning: After interviewing the is apparent this patient had some progressive dementia forgetting his 's name at times forgetting his pain at his daughter's name at times. We will try some Zyprexa at bedtime is in the past Seroquel did not work and currently trazodone does not seem to be too effective Subjective Patient has significant agitation last night requiring sedation is currently sedate during my evaluation his is at the bedside we discussed his care with him including the palliative care nurse practitioner will have agreed to begin some nighttime behavior control medications in hopes of getting a more restful night sleep and preventing sleeplessness to be part of his agitation Review of Systems Unobtainable due to cognitive status Physical Exam Vital Signs (Past 24 Hours): Last Vital Signs Temp 36.3 C L 07/28/18 15:47 Pulse 71 07/28/18 15:47 Resp 18 07/28/18 15:47 BP 147/88 H 07/28/18 15:47 Pulse Ox 98 07/28/18 15:47 The patient was lethargic and sleeping Vital signs as documented. Head exam is unremarkable. normocephalic, atraumatic Neck is without jugular venous distension, thyromegaly, or lymphademopathy Lungs are clear respirations were without significant effort Cardiac exam reveals Rhythm is regular. First and second heart sounds normal. Abdominal exam reveals normal bowel sounds, no masses, no organomegaly Extremities are nonedematous and both pedal pulses are present Neurologic exam obtunded due to recent sedation Skin is warm Dry without bruises or lesions
[2018-07-28] MEDS ORDERED: OLANZAPINE ZYDIS 5 MG ORALLY DIS. TAB PO SCH (21:00)
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
[2018-07-29] MEDS ORDERED: MoRPHine SULFATE 2 MG/ML CARP ONE (04:59)
[2018-07-29] MEDS: MoRPHine SULFATE 4 MG/ML 1 ML CARP\\VIAL IV PRN ×2 (05:00→19:59)
[2018-07-29] MEDS: ACETAMINOPHEN 500 MG TAB PO SCH ×3 (05:03→20:06)
[2018-07-29] MEDS ORDERED: HydrALAZINE HCL 20 MG/ML VIAL IV ONE (06:30)
[2018-07-29 07:54] LABS: Mean Corpuscular Hgb Conc 32.5 g/dL (32-36)
[2018-07-29 08:00] LABS: Hematocrit (blood only) 37.9 % (42-52); Hemoglobin 12.3 g/dL (14.0-18.0); Mean Corpuscular Volume 93.8 fL (80-100); RDW Coefficient of Variation 23.2 % (11.5-14.5); RDW Standard Deviation 79.8 fL (36.4-46.3); Red Blood Count 4.04 M/uL (4.7-6.1); White Blood Count 2.16 K/uL (4.8-10.8)
[2018-07-29 08:05] LABS: Platelet Count 33 K/uL (130-400)
[2018-07-29 08:29] LABS: BUN Creatinine Ratio 14.7 (10-20); Calcium 8.8 mg/dl (8.5-10.1); Creatinine Clr Calc Pharmacy 47.7 ml/min; Est GFR (African American) 69.4; Est GFR (Non-African American) 59.9; Potassium 3.7 mmol/L (3.5-5.1)
[2018-07-29 08:37] LABS: Platelet Estimate Decreased (Normal)
[2018-07-29] MEDS: ATORVASTATIN 40 MG TAB PO SCH (08:43)
[2018-07-29] MEDS: GABAPENTIN 100 MG CAP PO SCH ×2 (08:43→20:03)
[2018-07-29] MEDS: PANTOprazole 40 MG TAB PO SCH (08:43)
[2018-07-29] MEDS: MENTHOL-ZINC OXIDE 360 APPLN/120 GM TUBE EXT SCH ×2 (08:44→20:03)
[2018-07-29] MEDS: TRAMADOL HCL 50 MG TABLET PO SCH ×2 (08:47→20:09)
[2018-07-29] MEDS: ASPIRIN 81 MG ECTAB PO SCH (10:13)
--- NOTE | 2018-07-29 10:24 | Ultrasound Report ---
BILATERAL CAROTID DOPPLER STUDY HISTORY: stroke COMPARISON: None. TECHNIQUE: Real-time, grayscale, and color Doppler sonography of the carotid arteries was performed. Imaging reviewed in the transverse and longitudinal planes. All measurements were calculated based on NASCET criteria. FINDINGS: Antegrade flow is seen in the bilateral vertebral arteries. The brachial pressures are hemodynamically similar. Mild calcified plaque within the bilateral carotid bifurcations. The peak systolic velocity within the right ICA is 25 cm/s. The right systolic ratio is 0.4. The peak systolic velocity within the left ICA is 37 cm/s. The left systolic ratio is 0.5. IMPRESSION: No hemodynamically significant stenosis seen within the carotid arteries. Electronically signed by: Miguel Angel Steele M.D. 07/29/2018 10:22 AM
[2018-07-29] MEDS ORDERED: PERFLUTREN LIPID MICROSPHERE (DEFINITY) IV ONE (10:41)
--- NOTE | 2018-07-29 15:43 | Hospitalist Progress Note ---
Date of Service July 29, 2018 Assessment & Plan (1) Radicular leg pain: Patient be observed patient is difficult to disturb and leg pain. Does not appear to be consistent with postherpetic neuralgia and has been refractory to multiple outpatient attempts at improving his pain. He has not complained of pain with scheduled Tylenol, as needed opiates, Zyprexa for sleep, Patient's seems to complain of pain more at night this may be a component of his sundowning behavior last evening with Zyprexa he had better behavior and this morning he does not complain of pain throughout the day we will increase his Zyprexa dose at night given slightly earlier in the evening and hopefully be able to control symptoms better MRI of the brain ruled out metastatic disease but did show small acute infarction MRI of his LS spine only showed some right-sided changes and mild to moderate spinal stenosis but nothing significant to explain his radicular left leg discomfort we will continue to pursue pain relief as listed above but will try to control his sundowning behavior which seems to also be a time when his pain is exacerbated (2) CVA (cerebral vascular accident): Patient an incidental finding of acute punctate CVA on MRI of his brain. We will institute aspirin therapy and atorvastatin will control secondary risk factors of hypertension neurology consultation recommends baby aspirin carotid Doppler and echocardiogram. Agreeing with atorvastatin (3) Sundowning: After interviewing the is apparent this patient had some progressive dementia forgetting his 's name at times forgetting his pain at his daughter's name at times. We will try some Zyprexa at bedtime is in the past Seroquel did not work and currently trazodone does not seem to be too effective will attempt increasing Zyprexa dose on 07/29 and giving it earlier in the evening Subjective Sedated this morning likely hangover effect from last evening. His sundowning behavior had improved somewhat but not been completely resolved. The patient has not yet complained of any radicular leg pain which was his initial complaint from the brought into the hospital. He also has no focal deficits from the 2 punctate strokes seen on MRI scan. He is currently completing a stroke workup as recommended by Dr. Espinosa and our neurologist Review of Systems ROS: well nourished well developed. He is slightly lethargic this morning No double vision blurry vision No problems with speech or swallowing No palpitations, chest pain or pressure No Wheezing or breathing issues No abdominal pain nausea vomiting diarrhea changes in appetite or weight No burning urine urine frequency or changes in color No focal joint pain or muscle pain No skin rashes or oral lesions No unusual bruising or bleeding No focused back pain or numbness or loss of strength Physical Exam Vital Signs (Past 24 Hours): Last Vital Signs Temp 36.8 C 07/29/18 12:37 Pulse 83 07/29/18 12:37 Resp 18 07/29/18 12:37 BP 112/70 07/29/18 12:37 Pulse Ox 96 07/29/18 12:37 The patient appeared well nourished and normally developed. Vital signs as documented. Head exam is unremarkable. normocephalic, atraumatic Neck is without jugular venous distension, thyromegaly, or lymphademopathy Lungs are clear to auscultation and percussion. Cardiac exam reveals Rhythm is regular. Systolic ejection murmur first and second heart sounds normal. Abdominal exam reveals normal bowel sounds, no masses, no organomegaly Extremities are mildly edematous and both pedal pulses are present Neurologic exam is A&Ox2, no focal deficits, strength is equal bilateral Psychologically seems depressed
[2018-07-29] MEDS ORDERED: OLANZAPINE ZYDIS 10 MG ORALLY DIS. TAB PO SCH (19:00)
[2018-07-30] MEDS: ACETAMINOPHEN 500 MG TAB PO SCH ×3 (05:18→20:17)
[2018-07-30] MEDS: MoRPHine SULFATE 4 MG/ML 1 ML CARP\\VIAL IV PRN (05:26)
[2018-07-30] MEDS: PANTOprazole 40 MG TAB PO SCH (08:25)
[2018-07-30] MEDS: GABAPENTIN 100 MG CAP PO SCH ×2 (08:25→20:16)
[2018-07-30] MEDS: ATORVASTATIN 40 MG TAB PO SCH (08:25)
[2018-07-30] MEDS: ASPIRIN 81 MG ECTAB PO SCH (08:25)
[2018-07-30] MEDS: MENTHOL-ZINC OXIDE 360 APPLN/120 GM TUBE EXT SCH ×2 (08:28→21:00)
[2018-07-30] MEDS: TRAMADOL HCL 50 MG TABLET PO SCH ×2 (08:30→20:17)
--- NOTE | 2018-07-30 13:11 | Hospitalist Progress Note ---
Date of Service July 30, 2018 Assessment & Plan (1) Radicular leg pain: Patient with previous postherpetic neuralgia and left leg pain that has been refractory to multiple outpatient attempts at improving his pain. He has not complained of pain with scheduled Tylenol, as needed opiates, his biggest issue seems not revolve around sundowning behavior MRI of the brain ruled out metastatic disease but did show small acute infarction MRI of his LS spine only showed some right-sided changes and mild to moderate spinal stenosis but nothing significant to explain his radicular left leg discomfort we will continue to pursue pain relief as listed above but will try to control his sundowning behavior which seems to also be a time when his pain is exacerbated (2) CVA (cerebral vascular accident): Patient an incidental finding of acute punctate CVA on MRI of his brain. We will institute aspirin therapy and atorvastatin will control secondary risk factors of hypertension neurology consultation recommends baby aspirin, negative carotid Doppler for any occlusive disease and pending echocardiogram result. Continuing with atorvastatin (3) Sundowning: After interviewing the is apparent this patient had some progressive dementia forgetting his 's name at times forgetting his pain at his daughter's name at times. Zyprexa did not work with escalating doses. This was abandoned on 07/29. Will return with some Seroquel 50 at bedtime and Remeron 15 at bedtime keep the above medicines the same. We will evaluate by PT OT as listed for stroke and might consider the patient for rehab. Subjective Patient had no response to increasing dose of Zyprexa to help with sleep he had a significant night of sundowning however he did not complain of his initial complaint which was his left leg pain. He is having some visual disturbances and his says she notices prior to him coming to the hospital. Patient is able to have a conversation is not oriented to place Review of Systems ROS: well nourished well developed. Claims to have some visual challenges although given his dementia cannot quantify them even with direct questioning She has new problems with swallowing speech therapy is evaluating the patient may be related to his recent CVA No palpitations, chest pain or pressure No Wheezing or breathing issues No abdominal pain nausea vomiting diarrhea changes in appetite or weight No burning urine urine frequency or changes in color No focal joint pain or muscle pain No skin rashes or oral lesions No unusual bruising or bleeding No focused back pain or numbness or loss of strength Patient had increased sundowning activity since being in the hospital Physical Exam Vital Signs (Past 24 Hours): Last Vital Signs Temp 36.8 C 07/30/18 07:21 Pulse 95 H 07/30/18 07:21 Resp 18 07/30/18 07:21 BP 144/82 H 07/30/18 07:21 Pulse Ox 96 07/30/18 07:21 The patient appeared well nourished and normally developed. He is having some issues with alertness may be hangover effect from the Zyprexa Vital signs as documented. Head exam is unremarkable. normocephalic, atraumatic Neck is without jugular venous distension, thyromegaly, or lymphademopathy Lungs are clear to auscultation and percussion. Cardiac exam reveals Rhythm is regular. First and second heart sounds normal. Abdominal exam reveals normal bowel sounds, no masses, no organomegaly Extremities are mildly edematous and both pedal pulses are present Neurologic exam is A&Ox2, no focal deficits with exception of subjective complaints of vision may be some mild lid lag bilaterally, strength is equal bilateral Psychologically seems both anxious and depressed Skin is warm Dry without bruises or lesions
[2018-07-30] MEDS ORDERED: PIPERACILL/TAZOBAC CONSULT ACTIVE PRN (18:43)
[2018-07-30] MEDS ORDERED: ACETAMINOPHEN 500 MG TAB PO PRN (18:43)
[2018-07-30] MEDS ORDERED: ACETAMINOPHEN 1,000 MG/100 ML VIAL IV PRN (18:43)
[2018-07-30] MEDS ORDERED: SODIUM CHLORIDE 0.9% 1000ML 1,000 ML IV SCH (18:45)
--- NOTE | 2018-07-30 19:00 | XRay Report ---
XR chest 1V portable CLINICAL HISTORY: eval for pneumonia dyspnea COMPARISON STUDY: 03/14/2018 FINDINGS: Small parenchymal infiltrate left base. Lungs otherwise appear clear. No significant cardia c enlargement. Right hemidiaphragm is smooth. IMPRESSION: Small parenchymal infiltrate left base. The above report was generated using voice recognition software. It may contain grammatical, syntax or spelling errors. Electronically signed by: Sukhjinder Mena M.D. 07/30/2018 6:59 PM
[2018-07-30] MEDS ORDERED: PIPERACILLIN/TAZOBACTAM 4.5 GM in DEXTROSE 5% 100 ML IV ONE (19:30)
[2018-07-30] MEDS: MIRTAZAPINE TAB 15 MG TAB PO SCH (20:16)
[2018-07-30] MEDS: QUETIAPINE FUMARATE 25 MG TABLET PO SCH (20:17)
[2018-07-30] MEDS: PIPERACILLIN/TAZOBACTAM 3.375 GM in DEXTROSE 5% 100 ML IV SCH (23:21)
[2018-07-31] MEDS: ACETAMINOPHEN 500 MG TAB PO SCH ×3 (04:44→20:32)
[2018-07-31 06:58] LABS: Mean Corpuscular Hgb Conc 32.8 g/dL (32-36)
[2018-07-31 07:23] LABS: Hematocrit (blood only) 35.4 % (42-52); Hemoglobin 11.6 g/dL (14.0-18.0); Mean Corpuscular Volume 93.7 fL (80-100); RDW Coefficient of Variation 24.3 % (11.5-14.5); RDW Standard Deviation 82.7 fL (36.4-46.3); Red Blood Count 3.78 M/uL (4.7-6.1); White Blood Count 3.71 K/uL (4.8-10.8)
[2018-07-31 07:26] LABS: Platelet Count 38 K/uL (130-400); Platelet Estimate Decreased (Normal)
[2018-07-31 07:30] LABS: BUN Creatinine Ratio 14.3 (10-20); Calcium 8.3 mg/dl (8.5-10.1); Creatinine Clr Calc Pharmacy 25.4 ml/min; Est GFR (African American) 32.1; Est GFR (Non-African American) 27.7; Potassium 4.1 mmol/L (3.5-5.1)
[2018-07-31] MEDS: PIPERACILLIN/TAZOBACTAM 3.375 GM in DEXTROSE 5% 100 ML IV SCH ×3 (08:02→23:32)
--- NOTE | 2018-07-31 08:59 | Progress Note ---
DATE: 07/31/2018 HEMATOLOGY PROGRESS NOTE DIAGNOSES: 1. Chronic pain syndrome. 2. Cerebrovascular accident, lacunar infarcts of the right parietal and occipital regions. 3. Altered mental status/early dementia. 4. Pancytopenia. SUBJECTIVE: Graham was seen and examined at bedside today. Apparently, there is a question of aspiration this weekend. Chest x-ray done recently reveals a left lower small infiltrate and he is being treated presumptively for emerging pneumonia. The patient's was at bedside again this morning and states that Graham did not even recognize her today. He continues in steady decline and had jamil discussion with Mrs. Gillis regarding end-of-life care. Apparently he remains a full code and I have recommended DNR/DNI. This was explained to Mrs. Gillis and because of his mental status, we think it is appropriate for her to make the ultimate decision moving forward. His cytopenias have not worsened. His white count is a little bit better. The patient's reports he is not taking much in by mouth. Nursing reports no overnight difficulties. PHYSICAL EXAMINATION: GENERAL: He is a somnolent 88-year-old gentleman who does arouse to verbal stimuli. VITAL SIGNS: Temperature 37.1, pulse 96, respiratory rate 18, blood pressure 107/69. SKIN: Without rash or lesion. HEENT: Oral mucosa without erythema or ulceration. NECK: Supple. Trachea midline. HEART: Regular rate and rhythm. LUNGS: Clear to auscultation bilaterally. ABDOMEN: Soft, nontender, nondistended. EXTREMITIES: No clubbing, cyanosis, or edema. NEUROLOGIC: Again, he is awake, somnolent, but does arouse to verbal stimuli. LABORATORY DATA: WBC count 3710, hemoglobin 11.6, platelet count 38,000. Creatinine 0.26, sodium 141, potassium 4.1, chloride 108, carbon dioxide 24. IMPRESSION: 1. Left lower lobe infiltrate/pneumonia. 2. Lacunar infarct of the right cerebellum and right parietal region. 3. Early-onset dementia. 4. [id number]-[id number] renal injury. 5. Pancytopenia. PLAN: Again, had a jamil discussion with Mrs. Gillis pertaining to Graham's clinical status. I have seen significant decline since I last visited with him before the weekend. The patient's reports Graham has transient amnesia, specifically not identifying either her or her daughter at times. They do not believe he is capable at this juncture to make medical decision. Mrs. Gillis possesses power of trust and estates attorney, which I feel is appropriate to enact in this situation. Discussed code status directly with Mrs. Gillis stating that current medical therapy would continue, however, in the event of respiratory/cardiac arrest, Graham would not be intubated, mechanically ventilated, or pursue hemodialysis and/or CPR. Mrs. Gillis has an understanding of what was explained and agrees with the above. I requested she bring a copy of living will and proceed with her cosigning DNR/DNI orders. Agree with current medical management otherwise. If there are any questions or concerns, I can be contacted throughout the day today. We will continue to follow Graham periodically during his stay.
[2018-07-31] MEDS: TRAMADOL HCL 50 MG TABLET PO SCH ×2 (09:25→20:35)
[2018-07-31] MEDS: PANTOprazole 40 MG TAB PO SCH (09:26)
[2018-07-31] MEDS: ATORVASTATIN 40 MG TAB PO SCH (09:26)
[2018-07-31] MEDS: GABAPENTIN 100 MG CAP PO SCH ×2 (09:26→20:30)
[2018-07-31] MEDS: MENTHOL-ZINC OXIDE 360 APPLN/120 GM TUBE EXT SCH ×2 (09:26→20:30)
[2018-07-31] MEDS: ASPIRIN 81 MG ECTAB PO SCH (09:26)
--- NOTE | 2018-07-31 09:45 | Palliative Care Progress Note ---
Date of Service July 31, 2018 Assessment & Plan (1) Goals of care, counseling/discussion: -88 year old with vascular dementia, presented with intractable left leg pain. Hx shingles and postherpetic neuralgia to right leg. Has undergone many medication changes and interventional pain management procedures without relief. Has had major decline in functional and mental status since December. Severe dementia, FAST score 6c at home. Incidental findings of punctate strokes on MRI of brain, neurology following and do not believe this is the cause of patient's mental status changes given how small they are, onset of symptoms, etc. From discussion with patient's , sounds like patient has been severely sundowning for some time and his agitation/behavioral disturbances were being perceived as pain. Patient has denied pain since being in hospital. -Developed likely aspiration pneumonia over the weekend. CXR report shows small left infiltrate. -Patient remains confused this morning, but awake and conversing. He knew his name and that he was in the hospital. He did not recognize his or son. -Discussed CODE STATUS. Patient's states he has a living will that indicates he does not want any heroic measures. in the event of cardiac or respiratory arrest, patient does NOT want CPR or intubation. We will change him to a DO NOT RESUSCITATE at this time. and son are in agreement. -We will continue to treat this pneumonia. WE had a long talk about the progression of dementia including recurrent aspiration and the risk of pneumonia. Patient would NOT want a feeding tube. So we will continue to allow him to eat, as long as he is alert enough, despite the risk. -Continue treatment for pneumonia and see if there is improvement. At best, patient will get back to his baseline functional status of needing a cane and help with all ADLs, sometimes remembering his loved onces, sometimes not. wants to keep patient at home as long as possible. She will likely need some assistance--case management is following. I did begin discussing with family about the goals of care will be if/when patient is ready to leave the hospital: does she want to keep patient comfortable, would he want to come back to hospital, etc. Family will discuss. -Will continue to follow. (2) Radicular leg pain: -No findings on MRI to explain radicular pain in left leg. -Right leg pain has been attributed to post-herpetic neuralgia. -Continue Tramadol 100mg PO BID. -Scheduled Tylenol around the clock. -Can have morphine 2mg IV Q4h PRN severe pain. -Hallucinations and dementia are likely contributing factors to the pain every night. (3) Stroke: -New. -Neurology following and made recommendations. -Not likely the cause of his symptoms. (4) Post herpetic neuralgia: -Gabapentin 300mg PO BID. (5) Mild cognitive impairment: -From what described to me today, patient would be a FAST score of 6c indicating moderately severe dementia. -Will titrate medications while in hospital to try and get patient to sleep at night and hopefully improve his behavioral symptoms. -Dr. Mcneal will order Zyprexa ODT. -Also consider using Seroquel at night/bedtime. -Caution with Ativan as it did made patient extremely sedate this morning. Subjective Patient spiked fever over weekend, new left infiltrate on CXR. Now on abx for pneumonia, likely aspiration. Confusion persists. Still not sleeping at night. Tried Zyprexa, no response. Back on Seroquel and now Remeron. and son, John, at bedside. Review of Systems Unobtainable due to cognitive status remains confused and extremely [place]. He said "no" to pain or discomfort. Physical Exam Vital Signs (Past 24 Hours): Last Vital Signs Temp 37.1 C 07/31/18 07:50 Pulse 96 H 07/31/18 07:50 Resp 18 07/31/18 07:50 BP 107/69 07/31/18 07:50 Pulse Ox 94 07/31/18 07:50 Constitutional: well developed and well nourished; no acute distress ENMT: external ear and nose normal, oropharynx normal Ears: + hearing impairment Neck: normal visual inspection and trachea midline Respiratory: normal respiratory effort, lungs clear to auscultation Auscultation: + diminished lung sounds (bases) Cardiovascular: Rate/Rhythm: regular rate and regular rhythm Heart Sounds: + murmur Gastrointestinal (Abdomen): Inspection/Auscultation: abdomen normal to inspection and normal bowel sounds; abdomen not distended Percussion/Palpation: abdomen soft Neurologic: awake and + confused Psychiatric: Orientation: oriented to person and oriented to place; + not oriented to time Time Spent Midlevel 65 minutes with >50% of time spent at bedside with patient and family discussing condition and GOC.
--- NOTE | 2018-07-31 09:57 | Neurology Progress Note ---
Date of Service July 31, 2018 Assessment & Plan (1) Stroke: Two tiny, punctate (lacunar) acute infarcts were noted on a brain MRI, done for visual hallucinations. One of these infarcts is within the right cerebellar hemisphere while the other is located at the right parietal lobe high convexity. I do not believe either of these infarcts would explain visual hallucinations. The etiology of these tiny infarcts is not certain but I suspect small vessel ischemic disease. 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 Embolic phenomenon cannot be entirely excluded but echocardiogram July 29 that not show any embolic source and there was no intra-atrial shunt. (2) Mild cognitive impairment: Patient has some mild cognitive impairment/dementia which is likely secondary to a vascular dementia. This has been stable. Overall, his mental status is much improved today and he was pleasant and cooperative following commands. (3) Visual hallucinations: The patient has visual "hallucinations" and distortions. 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 Interestingly, when I saw him in July of 2016 for this problem, I agreed with Dr. Sargent, that this would be an unusual diagnosis for someone with as good of vision he had. The syndrome is generally reserved for people with very poor or no vision bilaterally. I was more impressed with just visual distortion and simple visual changes as opposed to true complex visual hallucinations. The farther away he looked the more he saw distorted environment. Moving objects also created this. Closer vision was fine. He did not have it at night or the evening. MRI of the brain at that time, showed no occipital lesions. Therefore, I am not labeling him with Eric Bonnet syndrome, but simply note that he has poor vision, visual distortions and possibly some simple visual hallucinations all due to his visual acuity problems from macular degeneration and cataracts. Recommendations: 1. Continue 81 milligram coated aspirin tablet daily, with food. He has a history of GI bleed. 2. Increase activity as able, including physical occupational therapy. 3. Treat pneumonia as you are doing. 4. He will likely have to have placement. 5. I see no reason for other neurologic testing or treatment changes at this time. Please contact me if I can be of further assistance. Overall, I spent a total of 40 minutes with this case including review of records, review of the MRI films, direct evaluation the patient at bedside, and discussion of the case with clinical staff and Dr. Jameson, including differential diagnosis and treatment options. Subjective Patient was having no pain or headache this morning. He was not dizzy and was resting comfortably. Nursing reports that he was somewhat improved today compared over the weekend. Vital signs are stable and he is afebrile. Chest x-ray yesterday showed a left base infiltrate. Physical Exam Vital Signs (Past 24 Hours): Last Vital Signs Temp 37.1 C 07/31/18 07:50 Pulse 96 H 07/31/18 07:50 Resp 18 07/31/18 07:50 BP 107/69 07/31/18 07:50 Pulse Ox 94 07/31/18 07:50 Physical Exam: Patient was resting with his eyes closed and easily aroused with voice. He made eye contact and followed one-step commands fairly well. He could wiggle his fingers and toes symmetrically. He had no nystagmus or facial droop. He had no abnormal involuntary movements.
[2018-07-31 17:48] LABS: Hematocrit (blood only) 33.7 % (42-52); Mean Corpuscular Hgb Conc 32.6 g/dL (32-36); Mean Corpuscular Volume 95.5 fL (80-100); RDW Coefficient of Variation 24.2 % (11.5-14.5); RDW Standard Deviation 84.6 fL (36.4-46.3); Red Blood Count 3.53 M/uL (4.7-6.1); White Blood Count 4.16 K/uL (4.8-10.8)
[2018-07-31 18:41] LABS: Mean Platelet Volume 10.6 fL (7.4-10.4); Platelet Count 34 K/uL (130-400); Platelet Estimate Decreased (Normal)
[2018-07-31] MEDS: QUETIAPINE FUMARATE 25 MG TABLET PO SCH (20:31)
[2018-07-31] MEDS: MIRTAZAPINE TAB 15 MG TAB PO SCH (20:31)
--- NOTE | 2018-07-31 22:43 | Hospitalist Progress Note ---
Date of Service July 31, 2018 Assessment & Plan (1) Radicular leg pain: Patient with previous postherpetic neuralgia and left leg pain that has been refractory to multiple outpatient attempts at improving his pain. He has not complained of pain with scheduled Tylenol, as needed opiates, his biggest issue seems not revolve around sundowning behavior Currently, today on 07/31 not exhibiting bouts of sundowning. MRI of the brain ruled out metastatic disease but did show small acute infarct ion. MRI of his LS spine only showed some right-sided changes and mild to moderate spinal stenosis but nothing significant to explain his radicular left leg discomfort we will continue to pursue pain relief as listed above but will try to control his sundowning behavior which seems to also be a time when his pain is exacerbated. Hopeful that patient may improve his mental status somewhat prior to discharge, however it appears that his baseline is also affected. Appreciate neuro input. Appreciate palliative care input as well. (2) CVA (cerebral vascular accident): Patient an incidental finding of acute punctate CVA on MRI of his brain. We will institute aspirin therapy and atorvastatin will control secondary risk factors of hypertension neurology consultation recommends baby aspirin, negative carotid Doppler for any occlusive disease. ECHO SHOWED LVH. Continuing with atorvastatin (3) Sundowning: After interviewing the is apparent this patient had some progressive dementia forgetting his 's name at times forgetting his pain at his daughter's name at times. Zyprexa did not work with escalating doses. This was abandoned on 07/29. Will return with some Seroquel 50 at bedtime and Remeron 15 at bedtime keep the above medicines the same. We will evaluate by PT OT as listed for stroke and might consider the patient for rehab. Spent 35 minutes in management of patient. Included reviewing chart and discussing case with consultants, and family. Subjective Patient appears to be very drowsy at time of exam. Patient does awaken and appreciateds my presence but then goes to bed. His is at bedside. Nurse also discussed about his pereira having blood. There is blood around the urinary meatus. Physical Exam Vital Signs (Past 24 Hours): Last Vital Signs Temp 37.2 C 07/31/18 19:10 Pulse 94 H 07/31/18 19:10 Resp 18 07/31/18 19:10 BP 119/74 07/31/18 19:10 Pulse Ox 100 03/11/19 19:10 Physical Exam: The patient appeared well nourished and normally developed. He is having some issues with alertness may be hangover effect from the Zyprexa Vital signs as documented. Head exam is unremarkable. normocephalic, atraumatic Neck is without jugular venous distension, thyromegaly, or lymphademopathy Lungs are clear to auscultation and percussion. Cardiac exam reveals Rhythm is regular. First and second heart sounds normal. Abdominal exam reveals normal bowel sounds, no masses, no organomegaly Extremities are mildly edematous and both pedal pulses are present Neurologic exam is A&Ox1, no focal deficits, strength is equal bilateral Psychologically does not seem anxious or depressed Skin is warm Dry without bruises or lesions
[2018-08-01] MEDS: ACETAMINOPHEN 500 MG TAB PO SCH ×3 (05:37→21:05)
[2018-08-01 06:58] LABS: Creatinine Clr Calc Pharmacy 31.7 ml/min; Est GFR (Non-African American) 36.3
[2018-08-01] MEDS: PIPERACILLIN/TAZOBACTAM 3.375 GM in DEXTROSE 5% 100 ML IV SCH ×2 (08:14→16:12)
[2018-08-01] MEDS: PANTOprazole 40 MG TAB PO SCH (08:15)
[2018-08-01] MEDS: GABAPENTIN 100 MG CAP PO SCH ×2 (08:15→21:06)
[2018-08-01] MEDS: ATORVASTATIN 40 MG TAB PO SCH (08:15)
[2018-08-01] MEDS: ASPIRIN 81 MG ECTAB PO SCH (08:16)
[2018-08-01] MEDS: TRAMADOL HCL 50 MG TABLET PO SCH ×2 (08:17→22:11)
[2018-08-01] MEDS: MENTHOL-ZINC OXIDE 360 APPLN/120 GM TUBE EXT SCH ×2 (08:23→21:07)
--- NOTE | 2018-08-01 09:04 | Progress Note ---
DATE: 08/01/2018 DIAGNOSES: 1. Chronic pain syndrome. 2. Cerebrovascular accident, lacunar infarcts of the right parietal and occipital regions. 3. Altered mental status/early dementia. 4. Pancytopenia. 5. Left lower lobe infiltrate, suspected pneumonia. SUBJECTIVE: The patient was seen and examined at bedside today. He was very somnolent throughout today's examination and did not stir to a verbal stimuli. His once again is at bedside. Appreciate Palliative Service establishing code status in the patient's case. He continues antibiotics and according to his , was eating pretty well yesterday. Interestingly, she also reported that he really has not complained of pain much during his hospitalization. His peripheral blood counts with the exception of his platelet count are also improving. PHYSICAL EXAMINATION: GENERAL: He is somnolent. VITAL SIGNS: Temperature 35.9, pulse 73, respiratory rate 20, blood pressure 120/71. SKIN: Without rash or lesion. HEENT: Oral mucosa is dry. NECK: Supple. Trachea midline. HEART: Regular rate and rhythm. LUNGS: Clear to auscultation. ABDOMEN: Soft, nontender, nondistended. EXTREMITIES: No clubbing, cyanosis or edema. NEUROLOGIC: Grossly intact. LABORATORY DATA: WBC count 4160, hemoglobin 11, platelet count 34,000. Creatinine 1.65. IMPRESSION: 1. Left lower lobe infiltrate/pneumonia. 2. Lacunar infarct right cerebellum and right parietal region. 3. Early onset dementia. 4. Acute on chronic renal injury. 5. Pancytopenia. PLAN: From hematologic standpoint, I am again resistant to pursuing bone marrow biopsy and aspiration and have suggested to the patient not to do anything terribly invasive with the patient moving forward. I could see there is fair degree of hematuria and Urology will be addressing this issue. He apparently was up and tolerating his diet yesterday.
--- NOTE | 2018-08-01 09:22 | Palliative Care Progress Note ---
Date of Service August 01, 2018 Assessment & Plan (1) Goals of care, counseling/discussion: -Patient looks great today. Much more awake and alert. Recognized his family, knows name and place. Still very [place]. -PT/OT to see patient today and determine his needs. If patient is close to his baseline functional status, patient's will want to take him home and have home health/PT/OT. If he continues to be extremely weak, may consider inpatient rehab. Will wait for PT/OT's recs. -Patient received his medications at bedtime last night and reportedly did sleep. He is much more awake today, ate some breakfast. Continue Seroquel and Remeron at bedtime. -Creatinine improved today from >2 to 1.68. -Consider removing Caro catheter now that patient is more awake. Does have some hematuria around meatus and in Caro bag, but urine in the tubing was yellow. Bleeding likely from trauma and patient pulling on catheter. Nursing reports seeing patient pull at catheter frequently. -Abx will need to be switched to something by mouth prior to discharge. -Patient was made DNR 07/31/18. (2) Radicular leg pain: -No findings on MRI to explain radicular pain in left leg. -Right leg pain has been attributed to post-herpetic neuralgia. -Continue Tramadol 100mg PO BID. -Scheduled Tylenol around the clock. -Can have morphine 2mg IV Q4h PRN severe pain. -Hallucinations and dementia are likely contributing factors to the pain every night. (3) Stroke: -New. -Neurology following and made recommendations. -Not likely the cause of his symptoms. (4) Post herpetic neuralgia: -Gabapentin 300mg PO BID. (5) Mild cognitive impairment: -From what described to me, patient would be a FAST score of 6c at baseline, indicating moderately severe dementia. -Will titrate medications while in hospital to try and get patient to sleep at night and hopefully improve his behavioral symptoms. -Seroquel 50mg and Remeron 15mg at bed time for sleep. -Caution with Ativan as it did made patient extremely sedate. If it's needed for severe agitation, use 0.25mg PO/SL. (6) Left pulmonary infiltrate on CXR: -New left infiltrate over weekend. -Possibly aspiration pneumonia. -On IV Zosyn. Could be switched to something PO for discharge. Subjective Patient much more awake today. Ate some breakfast. Denies pain. Calm and cooperative at this time. and son at bedside. Ear, Nose, Mouth, Throat: no dysphagia Respiratory: + cough; no dyspnea Cardiovascular: no chest pain Gastrointestinal: no abdominal pain and no nausea occasional complaints of BL leg pain, none at this time Physical Exam Vital Signs (Past 24 Hours): Last Vital Signs Temp 35.9 C L 08/01/18 08:00 Pulse 73 08/01/18 08:00 Resp 20 08/01/18 08:00 BP 120/71 08/01/18 08:00 Pulse Ox 98 08/01/18 08:00 Constitutional: well developed and well nourished; no acute distress ENMT: external ear and nose normal, oropharynx normal Ears: + hearing impairment Neck: normal visual inspection and trachea midline Respiratory: normal respiratory effort, lungs clear to auscultation Auscultation: + diminished lung sounds (bases) Cardiovascular: Rate/Rhythm: regular rate and regular rhythm Heart Sounds: + murmur Gastrointestinal (Abdomen): Inspection/Auscultation: abdomen normal to inspection and normal bowel sounds; abdomen not distended Percussion/Palpation: abdomen soft Neurologic: awake and + confused Psychiatric: Orientation: oriented to person and oriented to place; + not oriented to time Time Spent Midlevel 35 minutes with >50% of time spent at bedside with patient and family discussing condition and GOC.
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
[2018-08-01] MEDS: QUETIAPINE FUMARATE 25 MG TABLET PO SCH (21:07)
[2018-08-01] MEDS: MIRTAZAPINE TAB 15 MG TAB PO SCH (21:08)
--- NOTE | 2018-08-01 21:24 | Hospitalist Progress Note ---
Date of Service August 01, 2018 Assessment & Plan (1) Radicular leg pain: Patient with previous postherpetic neuralgia and left leg pain that has been refractory to multiple outpatient attempts at improving his pain. He has not complained of pain with scheduled Tylenol, as needed opiates, his biggest issue seems not revolve around sundowning behavior Currently, today on 08/01 not exhibiting bouts of sundowning. MRI of the brain ruled out metastatic disease but did show small acute infarct ion. MRI of his LS spine only showed some right-sided changes and mild to moderate spinal stenosis but nothing significant to explain his radicular left leg discomfort we will continue to pursue pain relief as listed above but will try to control his sundowning behavior which seems to also be a time when his pain is exacerbated. Hopeful that patient may improve his mental status somewhat prior to discharge, however it appears that his baseline is also affected. Appreciate neuro input. Patient appears to be more active today and was ambulating the halls. Appreciate palliative care input as well. (2) CVA (cerebral vascular accident): Patient an incidental finding of acute punctate CVA on MRI of his brain. We will institute aspirin therapy and atorvastatin will control secondary risk factors of hypertension neurology consultation recommends baby aspirin, negative carotid Doppler for any occlusive disease. ECHO SHOWED LVH. Continuing with atorvastatin (3) Sundowning: After interviewing the is apparent this patient had some progressive dementia forgetting his 's name at times forgetting his pain at his daughter's name at times. Zyprexa did not work with escalating doses. This was abandoned on 07/29. Will return with some Seroquel 50 at bedtime and Remeron 15 at bedtime keep the above medicines the same. We will evaluate by PT OT as listed for stroke and might consider the patient for rehab. (4) Hematuria: consulted Urology. Will continue to irriagte his pereira. Unsure if this is traumatic from patient tugging at it. However patient now has large amounts of clots. hemoglobin though has been relatively stable. Will continue to monitor Spent 35 minutes in management of patient. Included reviewing chart and discussing case with consultants, and family. Subjective Patient appears to be more awake today. He continues to be a poor historian, but his family is at bedside and sttae that he is close to his baseline. He continues though to have blood in his pereira Physical Exam Vital Signs (Past 24 Hours): Last Vital Signs Temp 36.7 C 08/01/18 19:00 Pulse 92 H 08/01/18 19:00 Resp 18 08/01/18 19:00 BP 106/72 08/01/18 19:00 Pulse Ox 99 08/01/18 19:00 Physical Exam: The patient appeared well nourished and normally developed. Patient is sitting in his chair. Vital signs as documented. Head exam is unremarkable. normocephalic, atraumatic Neck is without jugular venous distension, thyromegaly, or lymphademopathy Lungs are clear to auscultation and percussion. Cardiac exam reveals Rhythm is regular. First and second heart sounds normal. Abdominal exam reveals normal bowel sounds, no masses, no organomegaly Extremities are mildly edematous and both pedal pulses are present Neurologic exam is A&Ox1, no focal deficits, strength is equal bilateral Psychologically does not seem anxious or depressed Skin is warm Dry without bruises or lesions
[2018-08-01 22:46] LABS: Hematocrit (blood only) 30.4 % (42-52); Hemoglobin 10.2 g/dL (14.0-18.0)
[2018-08-02] MEDS: PIPERACILLIN/TAZOBACTAM 3.375 GM in DEXTROSE 5% 100 ML IV SCH ×2 (00:47→08:39)
[2018-08-02] MEDS: HALOPERIDOL LACTATE 5 MG/ML 1 ML VIAL IM PRN (01:54)
[2018-08-02] MEDS: ACETAMINOPHEN 500 MG TAB PO SCH ×3 (05:19→21:17)
[2018-08-02] MEDS: ATORVASTATIN 40 MG TAB PO SCH (08:30)
[2018-08-02] MEDS: GABAPENTIN 100 MG CAP PO SCH ×2 (08:31→21:18)
[2018-08-02] MEDS: MENTHOL-ZINC OXIDE 360 APPLN/120 GM TUBE EXT SCH ×2 (08:32→21:20)
[2018-08-02] MEDS: TRAMADOL HCL 50 MG TABLET PO SCH ×2 (08:35→21:22)
--- NOTE | 2018-08-02 10:49 | Urology Progress Note ---
Date of Service August 02, 2018 Assessment & Plan (1) Hematuria: Discussed persistent hematuria. Patient continues to reach for/pull catheter when not supervised per nursing. 18F cath currently in place is intermittently draining, frequent clotting, and requires frequent hand irrigation. Current catheter is too small for CBI. Due to being unable to easily place 20F hematuria cath yesterday at bedside, I'm afraid that attempting to place a larger catheter again will cause the patient discomfort and increased irritation. Removing catheter would like result in clot retention. Discussed goals of care - family prefers that we leave current catheter in place for as long as possible to minimize discomfort. Recommend: 1. Nursing hand irrigate catheter with sterile water Q1-2 hours to ensure patency. 2. Patient have 1:1 supervision or hand mitts placed to prevent catheter manipulation as this is certainly worsening bleeding. 3. Hold baby aspirin. Case discussed with Dr. Banks. Above recommendations discussed with attending Dr. Jameson. Will continue to follow. Subjective 88 YO male with hematuria. Unfortunately hematuria is persisting. 18F catheter became clogged overnight, and was successfully hand irrigated by Dr. Salazar. Activities/associated discomfort caused worsening confusion/agitation overnight. Per nursing patient continues to pull at catheter due to confusion. Upon exam this morning, patient is resting comfortably. , son, and palliative care CHUCKING MACHINE SET UP OPERATOR at bedside. Review of Systems Unobtainable due to cognitive status Physical Exam Vital Signs (Past 24 Hours): Last Vital Signs Temp 36.4 C L 08/02/18 00:00 Pulse 103 H 08/02/18 00:00 Resp 18 08/02/18 00:00 BP 119/75 08/02/18 00:00 Pulse Ox 95 08/02/18 00:00 Physical Exam: NAD. No JVD. No resp distress. Patient intermittently alert, not oriented. Caro cath in place, patent upon exam draining martin urine + sediment.
[2018-08-02] MEDS: ASPIRIN 81 MG ECTAB PO SCH (10:56)
[2018-08-02] MEDS: PANTOprazole 40 MG TAB PO SCH (10:57)
--- NOTE | 2018-08-02 11:14 | Palliative Care Progress Note ---
Date of Service August 02, 2018 Assessment & Plan (1) Goals of care, counseling/discussion: -Hematuria and clots continue to be an issues. Patient seen by urology yesterday who manually flushed patient's catheter. Attempt was made to place a 20F hematuria catheter, but unsuccessful so an 18F was placed. Patient has needed periodic irrigation of catheter to flush clots and blood. MD was paged in the middle of the night due to clogged Caro and bladder distention. MD was able to clear the catheter with manual irrigation. Due to the events at night, patient was severely agitated and required Haldol. -Today, patient is more calm, awake. He is constantly attempted to pull on catheter, so his family is at bedside watching him. When family is not present, he will need a 1:1 sitter. -I was in the room when urology STRATEGIC SOURCING CONSULTANT entered. She stated that if clots and urine do not start clearing up, patient may require intervention to place a larger catheter, and was questioning what patient's goals of care are. Patient's and son, Stan, were present. The overarching goal is for patient to remain comfortable, have medical issues reasonably treated, and eventually to get him home. For now, they'd like to continue with what we're doing with close supervision to ensure patient is not pulling on catheter. Hopefully the bleeding will stop and we can eventually remove catheter. -Treatment for possible aspiration pneumonia continues, abx could be switched to PO for discharge. HOspitalist managing. -If patient will continue to need irrigation of Caro, he will likely need to go to SNF before going home until the Caro can be removed. It's probably best for the patient to get out of the hospital. -Continue Seroquel 50mg and Remeron 15mg at bedtime to help patient get some sleep. -FAST score 6c, PPS 50%. -Will continue to follow. (2) Radicular leg pain: (3) Stroke: (4) Post herpetic neuralgia: (5) Mild cognitive impairment: (6) Left pulmonary infiltrate on CXR: Subjective Patient had a difficult night. See A&P. and son at bedside. Urology STRATEGIC SOURCING CONSULTANT visited as well. Discussed medical issues and GOC. See A&P. Constitutional: no chills Ear, Nose, Mouth, Throat: no dysphagia Respiratory: + cough; no dyspnea Cardiovascular: no chest pain Gastrointestinal: + abdominal pain (some soreness at level of bladder.); no nausea and no vomiting occasionally c/o leg pain, none at this time Neurologic: + confusion (baseline) Physical Exam Vital Signs (Past 24 Hours): Last Vital Signs Temp 36.4 C L 08/02/18 00:00 Pulse 103 H 08/02/18 00:00 Resp 18 08/02/18 00:00 BP 119/75 08/02/18 00:00 Pulse Ox 95 08/02/18 00:00 Constitutional: well developed and well nourished; no acute distress ENMT: external ear and nose normal, oropharynx normal Ears: + hearing impairment Neck: normal visual inspection and trachea midline Respiratory: normal respiratory effort, lungs clear to auscultation Auscult ation: + diminished lung sounds (bases) Cardiovascular: Rate/Rhythm: regular rate and regular rhythm Heart Sounds: + murmur Gastrointestinal (Abdomen): Inspection/Auscultation: abdomen normal to inspection and normal bowel sounds; abdomen not distended Percussion/Palpation: abdomen soft Neurologic: awake and + confused Psychiatric: Orientation: oriented to person and oriented to place; + not oriented to time Supervising Physician Co-Signing Physician Notes Patient seen and examined, at bedside. Patient did not respond to voice or touch-patient was up quite a bit last evening- allowing him to rest at this time. Provided support to the -we will continue to follow and provide support for medical decision making. PE: Patient asleep, comfortable, no acute distress Respiratory: Respirations unlabored, occasional cough CV: Regular rate, appears well perfused Abdomen: No increased distention : Continues to have dark hematuria-less clots reported today Agree with above note, assessment and plan as per LESLIE Logan P-will continue to follow to provide support with medical decision making Time Spent Midlevel 45 minutes with >50% of time spent at bedside with patient and family discussing medical condition and GOC.
[2018-08-02 12:33] LABS: Hematocrit (blood only) 26.8 % (42-52); Hemoglobin 8.8 g/dL (14.0-18.0); Mean Corpuscular Hgb Conc 32.8 g/dL (32-36); Mean Corpuscular Volume 94.4 fL (80-100); RDW Coefficient of Variation 23.6 % (11.5-14.5); RDW Standard Deviation 81.5 fL (36.4-46.3); Red Blood Count 2.84 M/uL (4.7-6.1); White Blood Count 2.37 K/uL (4.8-10.8)
[2018-08-02 12:42] LABS: Platelet Count 47 K/uL (130-400)
[2018-08-02 12:57] LABS: BUN Creatinine Ratio 16.5 (10-20); Creatinine Clr Calc Pharmacy 27.7 ml/min; Est GFR (African American) 35.7; Est GFR (Non-African American) 30.8; Potassium 3.8 mmol/L (3.5-5.1)
--- NOTE | 2018-08-02 14:56 | Procedure Note ---
Procedure Note Date of Service August 02, 2018 Called acutely supervisor mirror fabrication to see patient for pereira issues, obstruction and pain. 18 fr replaced with 22 fr coude. Irrigated with 3 L of sterile saline and water, removed ~250 cc of clot until light pink. Improved symptoms after completion. Care d/w . Nursing instructed on hand irrigation. Well tolerated.
[2018-08-02] MEDS: AMOXICILLIN/CLAVULANATE 500 MG TAB PO SCH (17:40)
[2018-08-02] MEDS: QUETIAPINE FUMARATE 25 MG TABLET PO SCH (21:16)
[2018-08-02] MEDS: MIRTAZAPINE TAB 15 MG TAB PO SCH (21:19)
--- NOTE | 2018-08-02 22:53 | Hospitalist Progress Note ---
Date of Service August 02, 2018 Assessment & Plan (1) Radicular leg pain: Patient with previous postherpetic neuralgia and left leg pain that has been refractory to multiple outpatient attempts at improving his pain. He has not complained of pain with scheduled Tylenol, as needed opiates, his biggest issue seems not revolve around sundowning behavior Currently, today on 08/01 not exhibiting bouts of sundowning. MRI of the brain ruled out metastatic disease but did show small acute infarct ion. MRI of his LS spine only showed some right-sided changes and mild to moderate spinal stenosis but nothing significant to explain his radicular left leg discomfort we will continue to pursue pain relief as listed above but will try to control his sundowning behavior which seems to also be a time when his pain is exacerbated. Hopeful that patient may improve his mental status somewhat prior to discharge, however it appears that his baseline is also affected. Appreciate neuro input. Patient appears to be waxing and waning throughout the past 24 hours. Currently his main issue is his hematuria. Appreciate palliative care input as well. (2) CVA (cerebral vascular accident): Patient an incidental finding of acute punctate CVA on MRI of his brain. We will institute aspirin therapy and atorvastatin will control secondary risk factors of hypertension neurology consultation recommends baby aspirin, negative carotid Doppler for any occlusive disease. ECHO SHOWED LVH. Continuing with atorvastatin (3) Sundowning: After interviewing the is apparent this patient had some progressive dementia forgetting his 's name at times forgetting his pain at his daughter's name at times. Zyprexa did not work with escalating doses. This was abandoned on 07/29. Will return with some Seroquel 50 at bedtime and Remeron 15 at bedtime keep the above medicines the same. Patient continues to wax and wane. Will monitor. (4) Acute kidney injury superimposed on CKD: May be from obstruction from the hematuria. Will continue to monitor. Creatinine peaked at 2 GFR however, decreased to around 25 but is hovering now at 30 (5) Hematuria: consulted Urology. Urology spent about an hour on 08/02 irrigating the pereira. Continues to have hematuria. Will continue to irriagte his pereira. Unsure if this is traumatic from patient tugging at it. However patient now has large amounts of clots. hemoglobin though has been relatively stable. Will continue to monitor Spent 35 minutes in management of patient. Included reviewing chart and discussing case with consultants, and nurses and patient. Subjective Patient is seen in the afternoon. Patient continues to be a poor historian. D/W nurse, patient had his urinary ctahter drained and irrigtated. Urology is concenred that patient may be tugging at it. Patient currently has a one to one in the room. He continues though to have blood in his pereira Physical Exam Vital Signs (Past 24 Hours): Last Vital Signs Temp 37.1 C 08/02/18 19:00 Pulse 110 H 08/02/18 19:00 Resp 21 08/02/18 19:00 BP 105/69 08/02/18 19:00 Pulse Ox 99 08/02/18 19:00 Physical Exam: The patient appeared well nourished and normally developed. Patient is lying in bed.. Vital signs as documented. Head exam is unremarkable. normocephalic, atraumatic Neck is without jugular venous distension, thyromegaly, or lymphademopathy Lungs are clear to auscultation and percussion. Cardiac exam reveals Rhythm is regular. First and second heart sounds normal. Abdominal exam reveals normal bowel sounds, no masses, no organomegaly Extremities are mildly edematous and both pedal pulses are present Neurologic exam is A&Ox1, no focal deficits, strength is equal bilateral Psychologically does not seem anxious or depressed Skin is warm Dry without bruises or lesions
[2018-08-03] MEDS: ACETAMINOPHEN 500 MG TAB PO SCH ×3 (04:40→21:02)
[2018-08-03] MEDS ORDERED: ASPIRIN 81 MG CHEW PO SCH (09:00)
[2018-08-03] MEDS: PANTOprazole 40 MG TAB PO SCH (09:23)
[2018-08-03] MEDS: AMOXICILLIN/CLAVULANATE 500 MG TAB PO SCH ×2 (09:23→17:43)
[2018-08-03] MEDS: MENTHOL-ZINC OXIDE 360 APPLN/120 GM TUBE EXT SCH ×2 (09:23→21:01)
[2018-08-03] MEDS: ATORVASTATIN 40 MG TAB PO SCH (09:23)
[2018-08-03] MEDS: GABAPENTIN 100 MG CAP PO SCH ×2 (09:26→21:01)
[2018-08-03] MEDS: TRAMADOL HCL 50 MG TABLET PO SCH ×2 (09:33→21:04)
--- NOTE | 2018-08-03 14:01 | Palliative Care Progress Note ---
Date of Service August 03, 2018 Assessment & Plan (1) Goals of care, counseling/discussion: -Urologist had to come and manually irrigate Caro again yesterday afternoon for continued clots and bleeding. He is a 1:1 strictly to ensure that the Caro is not being pulled on. His behaviors have been under control for the last couple days. -He did sleep last night. Today, was somnolent in the morning but then was fully awake and able to eat breakfast when I saw him. He was oriented to person and place. Confused otherwise. -If patient will continue to need irrigation of Caro, he will likely need to go to SNF before going home until the Caro can be removed. Patient's will not be able to manually irrigate Caro at home. Referral was made to SNF. -Continue Seroquel 50mg and Remeron 15mg at bedtime to help patient get some sleep. -Talked for quite a while with patient's and expressed by concern about her taking him straight home. patient's conidtion waxes and wanes every day. His care is only going to increase from here. She agrees, but really wants to take him home. She is open to rehab if needed, but prefers home. -FAST score 6c, PPS 50%. -Will continue to follow. (2) Radicular leg pain: (3) Stroke: (4) Post herpetic neuralgia: (5) Mild cognitive impairment: (6) Left pulmonary infiltrate on CXR: Subjective Patient was able to sleep last night. Caro was replaced yesterday afternoon by urologist--see his note. Constitutional: no chills Respiratory: + cough; no dyspnea Cardiovascular: no chest pain Gastrointestinal: + abdominal pain (some soreness at level of bladder.); no nausea and no vomiting Neurologic: + confusion (baseline) Physical Exam Vital Signs (Past 24 Hours): Last Vital Signs Temp 36.5 C 08/03/18 13:18 Pulse 86 08/03/18 13:18 Resp 16 08/03/18 13:18 BP 113/70 08/03/18 13:18 Pulse Ox 96 08/03/18 08:28 Constitutional: well developed and well nourished; no acute distress ENMT: external ear and nose normal, oropharynx normal Ears: + hearing impairment Neck: normal visual inspection and trachea midline Respiratory: normal respiratory effort, lungs clear to auscultation Cardiovascular: Rate/Rhythm: regular rate and regular rhythm Heart Sounds: + murmur Gastrointestinal (Abdomen): Inspection/Auscultation: abdomen normal to inspection and normal bowel sounds; abdomen not distended Percussion/Palpation: abdomen soft Neurologic: awake and + confused Psychiatric: Orientation: oriented to person and oriented to place; + not oriented to time Time Spent Midlevel 40 minutes with >50% of time spent at bedside with patient and family discussing medical condition and GOC.
--- NOTE | 2018-08-03 15:44 | Urology Progress Note ---
Date of Service August 03, 2018 Assessment & Plan (1) Hematuria: Jay urine is persisting. No clot in tubing today, which appears to be a minor improvement. Will continue to monitor. Continue Q2 hand irrigation. Subjective 88YO male with hematuria. 22F catheter remains in place, patent, draining jay urine without clot. Patient is resting comfortably. Review of Systems Unobtainable due to cognitive status Physical Exam Vital Signs (Past 24 Hours): Last Vital Signs Temp 37 C 08/03/18 15:22 Pulse 91 H 08/03/18 15:22 Resp 12 08/03/18 15:22 BP 96/60 L 08/03/18 15:22 Pulse Ox 95 08/03/18 15:22 Physical Exam: NAD. Resp effort normal. No JVD. Abd soft. Caro catheter in place, patent, draining jay urine - no clot.
[2018-08-03] MEDS: QUETIAPINE FUMARATE 25 MG TABLET PO SCH (21:02)
[2018-08-03] MEDS: MIRTAZAPINE TAB 15 MG TAB PO SCH (21:02)
[2018-08-04] MEDS: ACETAMINOPHEN 500 MG TAB PO SCH ×3 (05:22→20:17)
[2018-08-04] MEDS: TRAMADOL HCL 50 MG TABLET PO SCH ×2 (08:28→20:22)
[2018-08-04] MEDS: GABAPENTIN 100 MG CAP PO SCH ×2 (08:29→20:16)
[2018-08-04] MEDS: POLYETHYLENE (MIRALAX) 17 GM PACK PO PRN (08:29)
[2018-08-04] MEDS: ATORVASTATIN 40 MG TAB PO SCH (08:29)
[2018-08-04] MEDS: PANTOprazole 40 MG TAB PO SCH (08:29)
[2018-08-04] MEDS: MENTHOL-ZINC OXIDE 360 APPLN/120 GM TUBE EXT SCH ×2 (08:29→20:23)
[2018-08-04] MEDS: AMOXICILLIN/CLAVULANATE 500 MG TAB PO SCH ×2 (08:30→17:42)
--- NOTE | 2018-08-04 08:55 | Progress Note ---
DATE: 08/04/2018 HEMATOLOGY PROGRESS NOTE DIAGNOSES: 1. Chronic pain syndrome. 2. Cerebrovascular accident, lacunar infarcts in the right parietal and occipital region. 3. Altered mental status/early dementia. 4. Pancytopenia. 5. Left lower lobe infiltrate/suspected pneumonia. SUBJECTIVE: Graham was seen and examined at bedside this morning. His daughter and son-in-law are in for visit today. Graham did rouse with verbal stimuli and answered some questions appropriately. He remains intermittently confused and disoriented. His physical activity has been lacking over the past couple of days. He once again complained of leg pain this morning. Nursing reports no overnight difficulties; however, now he has a sitter because of his propensity to wander. PHYSICAL EXAMINATION: GENERAL: Very pleasant 88-year-old gentleman, in no acute distress. VITAL SIGNS: Temperature 37.2, pulse 88, respiratory rate 18, blood pressure 117/75. SKIN: Without rash or lesion. HEENT: Oral mucosa is dry. NECK: Supple. Trachea midline. HEART: Regular rate and rhythm. LUNGS: Clear to auscultation bilaterally. ABDOMEN: Soft, nontender, nondistended. EXTREMITIES: No clubbing, cyanosis or edema. NEUROLOGIC: He is awake and alert. He is markedly disoriented. LABORATORY DATA: Pending. IMPRESSION: 1. Left lower lobe infiltrate/pneumonia. 2. Lacunar infarct, right cerebellar and right parietal region. 3. Early onset dementia. 4. Acute on chronic renal injury. 5. Pancytopenia. PLAN: I had the pleasure of seeing Graham again at bedside. His daughter and son-in-law were in early to assist feeding in breakfast. I had a chance to speak to Graham's daughter about my concerns specifically with taking him home long-term. I do not foresee a great improvement in his mental status and his failing physical capabilities will impose significant burden on the patient's in my opinion. From a hematologic standpoint, again would continue supportive measures perhaps transfusion if necessary, but again, I am not anxious to pursue formal diagnosis.
--- NOTE | 2018-08-04 09:13 | Urology Progress Note ---
Date of Service August 04, 2018 Assessment & Plan (1) Hematuria: A/P 88 yo male with continued hematuria, improved clot retention. Monitor pereira, continue hand irrigation. Plan seems to be for SNF. Will plan on outpatient f/u with our service for cysto and consideration of TOV. Continue care per primary service. Subjective Patient resting in bed, son and daughter in room. Pereira draining dark burgandy urine. Per family hand irrigation continues, no clots, draining freely. No further discomfort from catheter. Intervening notes reviewed. Constitutional: no fever and no chills Respiratory: no cough and no hemoptysis Cardiovascular: no chest pain Genitourinary (Male): + hematuria Neurologic: + confusion; no paralysis and no numbness Hematologic / Lymphatic: + easy bleeding Physical Exam Vital Signs (Past 24 Hours): Last Vital Signs Temp 37.2 C 08/04/18 06:32 Pulse 88 08/04/18 06:32 Resp 18 08/04/18 06:32 BP 117/75 08/04/18 06:32 Pulse Ox 94 08/04/18 06:32 Constitutional: well developed; no acute distress Neck: trachea midline; no anterior neck swelling Respiratory: no respiratory distress and does not use accessory muscles Cardiovascular: Vessels: radial pulses present Gastrointestinal (Abdomen): Percussion/Palpation: abdomen soft; abdomen nontender Musculoskeletal: Head/Neck/Chest: normocephalic Skin: normal turgor Neurologic: awake Psychiatric: Mood: no anxious mood and no angry mood Genitourinary: bladder normal to inspection Results & Data Laboratory Results Laboratory Results - last 48 hr 08/02/18 08/02/18 12:07 12:07 WBC 2.37 L RBC 2.84 L Hgb 8.8 L Hct 26.8 L MCV 94.4 MCH 31.0 MCHC 32.8 RDW Std Deviation 81.5 H RDW Coeff of Key 23.6 H Plt Count 47 L MPV 11.0 H Sodium 140 Potassium 3.8 Chloride 109 H Carbon Dioxide 22 Anion Gap 9.0 BUN 31 H Creatinine 1.89 H Est Cr Clr Drug Dosing 27.7 Est GFR ( Amer) 35.7 Est GFR (Non-Af Amer) 30.8 BUN/Creatinine Ratio 16.5 Glucose 178 H Calcium 8.0 L
[2018-08-04 11:25] LABS: BUN Creatinine Ratio 22.1 (10-20); Calcium 7.7 mg/dl (8.5-10.1); Creatinine Clr Calc Pharmacy 38.2 ml/min; Est GFR (African American) 52.2; Potassium 3.9 mmol/L (3.5-5.1)
[2018-08-04 11:48] LABS: Hematocrit (blood only) 23.7 % (42-52); Hemoglobin 7.7 g/dL (14.0-18.0); Mean Corpuscular Hgb Conc 32.5 g/dL (32-36); Mean Corpuscular Volume 95.2 fL (80-100); Mean Platelet Volume 9.7 fL (7.4-10.4); Platelet Count 47 K/uL (130-400); RDW Coefficient of Variation 23.8 % (11.5-14.5); RDW Standard Deviation 81.7 fL (36.4-46.3); Red Blood Count 2.49 M/uL (4.7-6.1); White Blood Count 2.15 K/uL (4.8-10.8)
[2018-08-04 13:23] LABS: ALC (manual) 1.24 K/uL (1.2-3.4); Anisocytosis Present; Basophilic Stippling Occasional; Blast # (manual) 0.02 K/uL (0-0); Blast Cells % (manual) 0.9 %; Giant Platelets 3+; Lymphocytes # (manual) 1.24 K/uL (1.2-3.4); Lymphocytes % (manual) 57.5 %; Monocytes # (manual) 0.13 K/uL (0.11-0.59); Monocytes % (manual) 6.2 %; Neutrophils % (manual) 35.4 %; Spherocytes 1+
--- NOTE | 2018-08-04 14:50 | Palliative Care Progress Note ---
Date of Service August 04, 2018 Assessment & Plan (1) Dementia: Behaviors improving-cont Seroquel and Remeron (2) CVA (cerebral vascular accident): no new dificits - PT/OT (3) Visual hallucinations: intermittent, Seroquel heping at night (4) Left pulmonary infiltrate on CXR: On Augmentin (5) Hematuria: Hgb dropping, may require transfusion - f/u with Urology (6) Thrombocytopenia: Plt count stable - follows with Onc Subjective Patient sitting up in a chair-much more alert, oriented to person and place. reports he walked around the floor with therapist today. Nursing reports he slept well, has not had any behavior issues today - not pulling at Caro catheter. Pt continues to have gross hematuria - followed by Urology Pt followed by Onc for thrombocytopenia - now with pancytopenia. Hgb 11.6 on admission - 7.7 today; plt 47K - stable; baseline WBC low - now 2.19. Goal is for pt to go to [facility] [place] for rehab before returning home. Review of Systems Pt denies fever, pain , sob or abd pain Physical Exam Vital Signs (Past 24 Hours): Last Vital Signs Temp 36.9 C 08/04/18 11:52 Pulse 95 H 08/04/18 11:52 Resp 18 08/04/18 11:52 BP 104/68 08/04/18 11:52 Pulse Ox 97 08/04/18 11:52 Physical Exam: PE: NAD HEENT: EOMI, [place] Resp: unlabored CV: RR : gross hematuria, no clots seen in tubing neuro: A&O X 2, more alert Time Spent Attending Total time spent 30 minutes with greater than 50% of the time spent at bedside discussing patient's current status as well as goals of care with patient and
[2018-08-04] MEDS: MIRTAZAPINE TAB 15 MG TAB PO SCH (20:16)
[2018-08-04] MEDS: QUETIAPINE FUMARATE 25 MG TABLET PO SCH (20:19)
--- NOTE | 2018-08-04 23:50 | Hospitalist Progress Note ---
Date of Service August 04, 2018 Assessment & Plan (1) Radicular leg pain: Patient with previous postherpetic neuralgia and left leg pain that has been refractory to multiple outpatient attempts at improving his pain. He has not complained of pain with scheduled Tylenol, as needed opiates, his biggest issue seems not revolve around sundowning behavior Currently, today on 08/04 not exhibiting bouts of sundowning. MRI of the brain ruled out metastatic disease but did show small acute infarct ion. MRI of his LS spine only showed some right-sided changes and mild to moderate spinal stenosis but nothing significant to explain his radicular left leg discomfort we will continue to pursue pain relief as listed above but will try to control his sundowning behavior which seems to also be a time when his pain is exacerbated. Appreciate neuro input. Patient appears to be waxing and waning throughout hospital stay. Currently his main issue is his hematuria. Appreciate palliative care input as well. (2) CVA (cerebral vascular accident): Patient an incidental finding of acute punctate CVA on MRI of his brain. We will institute aspirin therapy and atorvastatin will control secondary risk factors of hypertension neurology consultation recommends baby aspirin, negative carotid Doppler for any occlusive disease. ECHO SHOWED LVH. Continuing with atorvastatin (3) Sundowning: After interviewing the is apparent this patient had some progressive dementia forgetting his 's name at times forgetting his pain at his daughter's name at times. Zyprexa did not work with escalating doses. This was abandoned on 07/29. Will return with some Seroquel 50 at bedtime and Remeron 15 at bedtime keep the above medicines the same. Patient continues to wax and wane. Will monitor. (4) Acute kidney injury superimposed on CKD: May be from obstruction from the hematuria. Will continue to monitor. Creatinine peaked at 2; has improved. (5) Hematuria: consulted Urology. Urology spent about an hour on 08/02 irrigating the pereira. Continues to have hematuria. Will continue to monitor. Unsure if this is traumatic from patient tugging at it. However patient now has large amounts of clots. hemoglobin though has been relatively stable. Spent 25 minutes in management of patient. Included reviewing chart and discussing case with consultants, and nurses and patient. Subjective Patient is seen in the afternoon. Patient is more awake and is answering questions. His main concern is pain in his right knee. He continues though to have blood in his pereira Physical Exam Vital Signs (Past 24 Hours): Last Vital Signs Temp 36.7 C 08/04/18 22:51 Pulse 90 08/04/18 22:51 Resp 19 08/04/18 22:51 BP 125/72 08/04/18 22:51 Pulse Ox 92 08/04/18 22:51 Physical Exam: The patient appeared well nourished and normally developed. Patient is sitting in chair. Vital signs as documented. Head exam is unremarkable. normocephalic, atraumatic Neck is without jugular venous distension, thyromegaly, or lymphademopathy Lungs are clear to auscultation and percussion. Cardiac exam reveals Rhythm is regular. First and second heart sounds normal. Abdominal exam reveals normal bowel sounds, no masses, no organomegaly Extremities are mildly edematous and both pedal pulses are present Neurologic exam is A&Ox2, no focal deficits, strength is equal bilateral Psychologically does not seem anxious or depressed Skin is warm Dry without bruises or lesions
[2018-08-05] MEDS: ACETAMINOPHEN 500 MG TAB PO SCH ×3 (06:31→20:37)
[2018-08-05] MEDS: GABAPENTIN 100 MG CAP PO SCH ×2 (07:45→20:37)
[2018-08-05] MEDS: PANTOprazole 40 MG TAB PO SCH (07:45)
[2018-08-05] MEDS: MENTHOL-ZINC OXIDE 360 APPLN/120 GM TUBE EXT SCH ×2 (07:46→21:05)
[2018-08-05] MEDS: ATORVASTATIN 40 MG TAB PO SCH (07:46)
[2018-08-05] MEDS: AMOXICILLIN/CLAVULANATE 500 MG TAB PO SCH ×2 (07:46→17:38)
[2018-08-05] MEDS: POLYETHYLENE (MIRALAX) 17 GM PACK PO PRN (07:49)
[2018-08-05] MEDS: TRAMADOL HCL 50 MG TABLET PO SCH ×2 (07:49→20:36)
[2018-08-05 12:13] LABS: BUN Creatinine Ratio 21.4 (10-20); Calcium 8.3 mg/dl (8.5-10.1); Creatinine Clr Calc Pharmacy 36.7 ml/min; Est GFR (African American) 50.8; Est GFR (Non-African American) 43.9; Potassium 3.8 mmol/L (3.5-5.1)
[2018-08-05 12:32] LABS: Hematocrit (blood only) 25.3 % (42-52); Hemoglobin 8.2 g/dL (14.0-18.0); Mean Corpuscular Hgb Conc 32.4 g/dL (32-36); Mean Corpuscular Volume 96.6 fL (80-100); Mean Platelet Volume 10.2 fL (7.4-10.4); Platelet Count 60 K/uL (130-400); RDW Coefficient of Variation 23.1 % (11.5-14.5); RDW Standard Deviation 80.9 fL (36.4-46.3); Red Blood Count 2.62 M/uL (4.7-6.1); White Blood Count 2.17 K/uL (4.8-10.8)
[2018-08-05 12:42] LABS: Anisocytosis Present; Basophilic Stippling 1+; Polychromasia 1+
[2018-08-05 12:43] LABS: ALC (manual) 0.98 K/uL (1.2-3.4); Blast # (manual) 0.02 K/uL (0-0); Blast Cells % (manual) 0.9 %; Lymphocytes # (manual) 0.98 K/uL (1.2-3.4); Lymphocytes % (manual) 45.3 %; Monocytes # (manual) 0.06 K/uL (0.11-0.59); Monocytes % (manual) 2.8 %; Myelocytes # (manual) 0.02 K/uL (0-0); Myelocytes % (manual) 0.9 %; Neutrophils % (manual) 50.1 %
--- NOTE | 2018-08-05 16:29 | Urology Progress Note ---
Date of Service August 05, 2018 Assessment & Plan (1) Hematuria: - attempted to irrigate catheter, but could not draw back - deflated the balloon and repositioned the catheter which subsequently irrigated easily (clear) - I reinflated the balloon and confirmed that the catheter continued to irrigate - maybe positioned in a diverticulum? - plan for irrigation PRN only - I will check on him again tomorrow Subjective called by nursing because catheter would not easily irrigate Physical Exam Vital Signs (Past 24 Hours): Last Vital Signs Temp 36.9 C 08/05/18 15:00 Pulse 90 08/05/18 15:00 Resp 16 08/05/18 15:00 BP 94/61 L 08/05/18 15:00 Pulse Ox 95 08/05/18 15:00
[2018-08-05] MEDS: QUETIAPINE FUMARATE 25 MG TABLET PO SCH (20:38)
[2018-08-05] MEDS: MIRTAZAPINE TAB 15 MG TAB PO SCH (20:44)
[2018-08-05] MEDS: LORazepam 0.5 MG TAB SL PRN (22:29)
[2018-08-06] MEDS: ACETAMINOPHEN 500 MG TAB PO SCH ×3 (06:00→20:32)
--- NOTE | 2018-08-06 09:21 | Urology Progress Note ---
Date of Service August 06, 2018 Assessment & Plan (1) Hematuria: - doing well - per , he was voiding well prior to admission - if urine clears today and the medical team agrees, voiding trial would be reasonable Subjective no major cath issues overnight - urine slowly clearing - some small amounts of old clot are coloring the bag, but the tubing is relatively clear Physical Exam Vital Signs (Past 24 Hours): Last Vital Signs Temp 37.1 C 08/05/18 22:49 Pulse 99 H 08/05/18 22:49 Resp 18 08/05/18 22:49 BP 121/78 08/05/18 22:49 Pulse Ox 97 08/05/18 22:49 Physical Exam: AFVSS sleeping NAD abd soft urine in tubing clear with some granular old clot layering
[2018-08-06] MEDS: ATORVASTATIN 40 MG TAB PO SCH (09:43)
[2018-08-06] MEDS: PANTOprazole 40 MG TAB PO SCH (09:43)
[2018-08-06] MEDS: GABAPENTIN 100 MG CAP PO SCH ×2 (09:44→20:32)
[2018-08-06] MEDS: MENTHOL-ZINC OXIDE 360 APPLN/120 GM TUBE EXT SCH ×2 (09:44→20:31)
[2018-08-06] MEDS: TRAMADOL HCL 50 MG TABLET PO SCH ×2 (09:44→20:42)
[2018-08-06] MEDS: AMOXICILLIN/CLAVULANATE 500 MG TAB PO SCH (09:44)
[2018-08-06] MEDS: POLYETHYLENE (MIRALAX) 17 GM PACK PO PRN (09:44)
[2018-08-06 12:30] LABS: Hematocrit (blood only) 25.2 % (42-52); Hemoglobin 8.1 g/dL (14.0-18.0); Mean Corpuscular Hgb Conc 32.1 g/dL (32-36); Mean Corpuscular Volume 95.8 fL (80-100); Mean Platelet Volume 9.7 fL (7.4-10.4); Platelet Count 65 K/uL (130-400); RDW Coefficient of Variation 22.8 % (11.5-14.5); RDW Standard Deviation 78.9 fL (36.4-46.3); Red Blood Count 2.63 M/uL (4.7-6.1); White Blood Count 2.56 K/uL (4.8-10.8)
[2018-08-06 12:33] LABS: BUN Creatinine Ratio 18.8 (10-20); Calcium 8.4 mg/dl (8.5-10.1); Creatinine Clr Calc Pharmacy 35.1 ml/min; Est GFR (African American) 47.2; Est GFR (Non-African American) 40.7; Potassium 3.8 mmol/L (3.5-5.1)
[2018-08-06 13:15] LABS: Anisocytosis Present; Basophilic Stippling 1+
[2018-08-06 13:31] LABS: ALC (manual) 1.65 K/uL (1.2-3.4); Blast # (manual) 0.02 K/uL (0-0); Blast Cells % (manual) 0.9 %; Lymphocytes # (manual) 1.65 K/uL (1.2-3.4); Lymphocytes % (manual) 64.5 %; Monocytes # (manual) 0.07 K/uL (0.11-0.59); Monocytes % (manual) 2.7 %; Myelocytes # (manual) 0.02 K/uL (0-0); Myelocytes % (manual) 0.9 %
[2018-08-06] MEDS: MIRTAZAPINE TAB 15 MG TAB PO SCH (20:32)
[2018-08-06] MEDS: QUETIAPINE FUMARATE 25 MG TABLET PO SCH (20:33)
--- NOTE | 2018-08-07 01:27 | Hospitalist Progress Note ---
Date of Service August 06, 2018 Assessment & Plan (1) Radicular leg pain: Patient with previous postherpetic neuralgia and left leg pain that has been refractory to multiple outpatient attempts at improving his pain. He has not complained of pain with scheduled Tylenol, as needed opiates, his biggest issue seems not revolve around sundowning behavior Currently, today on 08/06 not exhibiting bouts of sundowning. Has been oriented x2 since 08/04. MRI of the brain ruled out metastatic disease but did show small acute infarction. MRI of his LS spine only showed some right-sided changes and mild to moderate spinal stenosis but nothing significant to explain his radicular left leg discomfort we will continue to pursue pain relief as listed above but will try to control his sundowning behavior which seems to also be a time when his pain is exacerbated. Appreciate neuro input. Patient appears to be waxing and waning throughout hospital stay. Currently his main issue is his hematuria. Appreciate palliative care input as well. Awaiting placement. (2) CVA (cerebral vascular accident): Patient an incidental finding of acute punctate CVA on MRI of his brain. We will institute aspirin therapy and atorvastatin will control secondary risk factors of hypertension neurology consultation recommends baby aspirin, negative carotid Doppler for any occlusive disease. ECHO SHOWED LVH. Continuing with atorvastatin (3) Sundowning: After interviewing the is apparent this patient had some progressive dementia forgetting his 's name at times forgetting his pain at his daughter's name at times. Zyprexa did not work with escalating doses. This was abandoned on 07/29. Will return with some Seroquel 50 at bedtime and Remeron 15 at bedtime keep the above medicines the same. Patient continues to wax and wane. Will monitor. (4) Acute kidney injury superimposed on CKD: May be from obstruction from the hematuria. Will continue to monitor. Creatinine peaked at 2; has improved. (5) Hematuria: consulted Urology. Urology spent about an hour on 08/02 irrigating the pereira. Continues to have hematuria. Will continue to monitor. Unsure if this is traumatic from patient tugging at it. However patient now has large amounts of clots. hemoglobin though has been relatively stable. Patient will likely need followup with Urology as outpatient, Spent 25 minutes in management of patient. Included reviewing chart and discussing case with nurses and patient. Pending placement Subjective Patient is seen in the evening. Family is at bedside. Questions were answered. Patient is more awake and is answering questions. His main concern is pain in his right knee. He continues though to have blood in his pereira, but the blood is clearing up. Physical Exam Vital Signs (Past 24 Hours): Last Vital Signs Temp 36.7 C 08/06/18 23:00 Pulse 88 08/06/18 23:00 Resp 18 08/06/18 23:00 BP 108/64 08/06/18 23:00 Pulse Ox 97 08/06/18 23:00 Physical Exam: The patient appeared well nourished and normally developed. Patient is sitting iin chair. Vital signs as documented. Head exam is unremarkable. normocephalic, atraumatic Neck is without jugular venous distension, thyromegaly, or lymphademopathy Lungs are clear to auscultation and percussion. Cardiac exam reveals Rhythm is regular. First and second heart sounds normal. Abdominal exam reveals normal bowel sounds, no masses, no organomegaly Extremities are mildly edematous and both pedal pulses are present Neurologic exam is A&Ox2, no focal deficits, strength is equal bilateral Psychologically does not seem anxious or depressed Skin is warm Dry without bruises or lesions
--- NOTE | 2018-08-07 01:27 | Hospitalist Progress Note ---
Date of Service August 05, 2018 Assessment & Plan (1) Radicular leg pain: Patient with previous postherpetic neuralgia and left leg pain that has been refractory to multiple outpatient attempts at improving his pain. He has not complained of pain with scheduled Tylenol, as needed opiates, his biggest issue seems not revolve around sundowning behavior Currently, today on 08/05 not exhibiting bouts of sundowning. Has been oriented x2 since 08/04. MRI of the brain ruled out metastatic disease but did show small acute infarction. MRI of his LS spine only showed some right-sided changes and mild to moderate spinal stenosis but nothing significant to explain his radicular left leg discomfort we will continue to pursue pain relief as listed above but will try to control his sundowning behavior which seems to also be a time when his pain is exacerbated. Appreciate neuro input. Patient appears to be waxing and waning throughout hospital stay. Currently his main issue is his hematuria. Appreciate palliative care input as well. Awaiting placement. (2) CVA (cerebral vascular accident): Patient an incidental finding of acute punctate CVA on MRI of his brain. We will institute aspirin therapy and atorvastatin will control secondary risk factors of hypertension neurology consultation recommends baby aspirin, negative carotid Doppler for any occlusive disease. ECHO SHOWED LVH. Continuing with atorvastatin (3) Sundowning: After interviewing the is apparent this patient had some progressive dementia forgetting his 's name at times forgetting his pain at his daughter's name at times. Zyprexa did not work with escalating doses. This was abandoned on 07/29. Will return with some Seroquel 50 at bedtime and Remeron 15 at bedtime keep the above medicines the same. Patient continues to wax and wane. Will monitor. (4) Acute kidney injury superimposed on CKD: May be from obstruction from the hematuria. Will continue to monitor. Creatinine peaked at 2; has improved. (5) Hematuria: consulted Urology. Urology spent about an hour on 08/02 irrigating the pereira. Continues to have hematuria. Will continue to monitor. Unsure if this is traumatic from patient tugging at it. However patient now has large amounts of clots. hemoglobin though has been relatively stable. Spent 25 minutes in management of patient. Included reviewing chart and discussing case with consultants, and nurses and patient. Subjective Patient is seen in the afternoon. Patient is more awake and is answering questions. His main concern is pain in his right knee. He continues though to have blood in his pereira Physical Exam Vital Signs (Past 24 Hours): Last Vital Signs Temp 36.9 C 08/05/18 15:00 Pulse 90 08/05/18 15:00 Resp 16 08/05/18 15:00 BP 94/61 08/05/18 15:00 Pulse Ox 95 08/05/18 15:00 Physical Exam: The patient appeared well nourished and normally developed. Patient is sitting in chair.. Vital signs as documented. Head exam is unremarkable. normocephalic, atraumatic Neck is without jugular venous distension, thyromegaly, or lymphademopathy Lungs are clear to auscultation and percussion. Cardiac exam reveals Rhythm is regular. First and second heart sounds normal. Abdominal exam reveals normal bowel sounds, no masses, no organomegaly Extremities are mildly edematous and both pedal pulses are present Neurologic exam is A&Ox2, no focal deficits, strength is equal bilateral Psychologically does not seem anxious or depressed Skin is warm Dry without bruises or lesions
--- NOTE | 2018-08-07 01:27 | Hospitalist Progress Note ---
Date of Service August 03, 2018 Assessment & Plan (1) Radicular leg pain: Patient with previous postherpetic neuralgia and left leg pain that has been refractory to multiple outpatient attempts at improving his pain. He has not complained of pain with scheduled Tylenol, as needed opiates, his biggest issue seems not revolve around sundowning behavior Currently, today on 08/01 not exhibiting bouts of sundowning. MRI of the brain ruled out metastatic disease but did show small acute infarct ion. MRI of his LS spine only showed some right-sided changes and mild to moderate spinal stenosis but nothing significant to explain his radicular left leg discomfort we will continue to pursue pain relief as listed above but will try to control his sundowning behavior which seems to also be a time when his pain is exacerbated. Hopeful that patient may improve his mental status somewhat prior to discharge, however it appears that his baseline is also affected. Appreciate neuro input. Patient remains confused on 08/03 Currently his main issue is his hematuria. Appreciate palliative care input as well. (2) CVA (cerebral vascular accident): Patient an incidental finding of acute punctate CVA on MRI of his brain. We will institute aspirin therapy and atorvastatin will control secondary risk factors of hypertension neurology consultation recommends baby aspirin, negative carotid Doppler for any occlusive disease. ECHO SHOWED LVH. Continuing with atorvastatin (3) Sundowning: After interviewing the is apparent this patient had some progressive dementia forgetting his 's name at times forgetting his pain at his daughter's name at times. Zyprexa did not work with escalating doses. This was abandoned on 07/29. Will return with some Seroquel 50 at bedtime and Remeron 15 at bedtime keep the above medicines the same. Patient continues to wax and wane. Will monitor. (4) Acute kidney injury superimposed on CKD: May be from obstruction from the hematuria. Will continue to monitor. Creatinine peaked at 2 GFR however, decreased to around 25 but is hovering now at 30 (5) Hematuria: consulted Urology. Urology spent about an hour on 08/02 irrigating the pereira. Continues to have hematuria. Will continue to irrigate his pereira. Unsure if this is traumatic from patient tugging at it. However patient now has large amounts of clots. hemoglobin though has been relatively stable. Will continue to monitor Spent 25 minutes in management of patient. Included reviewing chart and discussing case with consultants, and nurses and patient. Subjective Patient is seen in the afternoon. Patient continues to be a poor historian. Patient appears to be confused this afternoon. D/W nurse, patient had his urinary ctahter drained and irrigtated. Patient currently has a one to one in the room. He continues though to have blood in his pereira Physical Exam Vital Signs (Past 24 Hours): Last Vital Signs Temp 36.4 C 08/03/18 08:28 Pulse 80 08/03/18 08:28 Resp 14 08/03/18 08:28 BP 108/72 08/03/18 08:28 Pulse Ox 96 08/03/18 08:28 Physical Exam: The patient appeared well nourished and normally developed. Patient is lying in bed.. Vital signs as documented. Head exam is unremarkable. normocephalic, atraumatic Neck is without jugular venous distension, thyromegaly, or lymphademopathy Lungs are clear to auscultation and percussion. Cardiac exam reveals Rhythm is regular. First and second heart sounds normal. Abdominal exam reveals normal bowel sounds, no masses, no organomegaly Extremities are mildly edematous and both pedal pulses are present Neurologic exam is A&Ox1, no focal deficits, strength is equal bilateral Psychologically does not seem anxious or depressed Skin is warm Dry without bruises or lesions
[2018-08-07] MEDS: ACETAMINOPHEN 500 MG TAB PO SCH ×3 (05:55→21:23)
[2018-08-07] MEDS: ATORVASTATIN 40 MG TAB PO SCH (08:11)
[2018-08-07] MEDS: PANTOprazole 40 MG TAB PO SCH (08:11)
[2018-08-07] MEDS: MENTHOL-ZINC OXIDE 360 APPLN/120 GM TUBE EXT SCH ×2 (08:11→21:24)
[2018-08-07] MEDS: GABAPENTIN 100 MG CAP PO SCH ×2 (08:11→21:23)
[2018-08-07] MEDS: TRAMADOL HCL 50 MG TABLET PO SCH ×2 (08:11→21:22)
--- NOTE | 2018-08-07 09:54 | Urology Progress Note ---
Date of Service August 07, 2018 Assessment & Plan (1) Hematuria: 88yo M with resolving hematuria VS and Hgb remain stable. Pt is doing well overall but reporting irrigation with catheter. No major issues prior to admission. requesting voiding trial this AM. Has not required hand irrigation for >48 hours, urine clear. Okay to d/c catheter and attempt voiding trial. Bladder scan PRN, straight cath for >400cc. Awaiting disposition/placement. Will continue to follow to assess status of spontaneous voiding/ensure resolved hematuria. Subjective 88yo M with hematuria, improved clot retention. RN and at bedside at time of evaluation. Pt sitting at side of bed, completed breakfast. Pt complaining of burning at tip of penis. No major issues with catheter overnight - urine now clear with scant clot/sediment Pt has not been pulling at catheter but relates that it is very annoying. Denies bladder spasms or suprapubic pain. Physical Exam Vital Signs (Past 24 Hours): Last Vital Signs Temp 36.8 C 08/07/18 04:00 Pulse 84 08/07/18 04:00 Resp 18 08/07/18 04:00 BP 111/71 08/07/18 04:00 Pulse Ox 95 08/07/18 04:00 Physical Exam: Pt alert, disoriented. RRR Sitting in chair at side of bed. Caro catheter draining clear yellow with scant old clot sediment. Results & Data Laboratory Results Laboratory Results - last 48 hr 08/05/18 08/05/18 08/06/18 11:36 11:36 11:59 WBC 2.17 L 2.56 L RBC 2.62 L 2.63 L Hgb 8.2 L 8.1 L Hct 25.3 L 25.2 L MCV 96.6 95.8 MCH 31.3 30.8 MCHC 32.4 32.1 RDW Std Deviation 80.9 H 78.9 H RDW Coeff of Key 23.1 H 22.8 H Plt Count 60 L 65 L MPV 10.2 9.7 Neutrophils % (Manual) 50.1 31.0 Lymphocytes % (Manual) 45.3 64.5 Monocytes % (Manual) 2.8 2.7 Myelocytes % (Man) 0.9 0.9 Blast Cells % (Manual) 0.9 0.9 Neutrophils # (Manual) 1.09 L 0.79 L Total Absolute Neuts 1.09 L 0.79 L* Lymphocytes # (Manual) 0.98 L 1.65 Total Abs Lymphocytes 0.98 L 1.65 Monocytes # (Manual) 0.06 L 0.07 L Myelocytes # (Manual) 0.02 H 0.02 H Blast Cells # (Man) 0.02 H 0.02 H Polychromasia 1+ Basophilic Stippling 1+ 1+ Anisocytosis Present Present Sodium 141 Potassium 3.8 Chloride 109 H Carbon Dioxide 29 Anion Gap 3.0 BUN 30 H Creatinine 1.41 H Est Cr Clr Drug Dosing 36.7 Est GFR ( Amer) 50.8 Est GFR (Non-Af Amer) 43.9 BUN/Creatinine Ratio 21.4 H Glucose 161 H Calcium 8.3 L 08/06/18 11:59 WBC RBC Hgb Hct MCV MCH MCHC RDW Std Deviation RDW Coeff of Key Plt Count MPV Neutrophils % (Manual) Lymphocytes % (Manual) Monocytes % (Manual) Myelocytes % (Man) Blast Cells % (Manual) Neutrophils # (Manual) Total Absolute Neuts Lymphocytes # (Manual) Total Abs Lymphocytes Monocytes # (Manual) Myelocytes # (Manual) Blast Cells # (Man) Polychromasia Basophilic Stippling Anisocytosis Sodium 142 Potassium 3.8 Chloride 107 Carbon Dioxide 26 Anion Gap 9.0 BUN 28 H Creatinine 1.50 H Est Cr Clr Drug Dosing 35.1 Est GFR ( Amer) 47.2 Est GFR (Non-Af Amer) 40.7 BUN/Creatinine Ratio 18.8 Glucose 178 H Calcium 8.4 L
[2018-08-07] MEDS ORDERED: CAPSAICIN CR 0.075% 60 GM TUBE EXT PRN (11:00)
--- NOTE | 2018-08-07 15:13 | Palliative Care Progress Note ---
Date of Service August 07, 2018 Assessment & Plan (1) Dementia: Behaviors controlled with Seroquel and Remeron nightly, no behavioral issues during the daytime (2) CVA (cerebral vascular accident): no new deficits- PT/OT (3) Visual hallucinations: intermittent, Seroquel effective at night (4) Left pulmonary infiltrate on CXR: Completed course of Augmentin, suspect aspiration. Aspiration precautions (5) Hematuria: Hgb stable at 8.1- f/u with Urology (6) Thrombocytopenia: Plt count stable at 65K- follows with Oncology Subjective Patient sitting up in a chair, appears to be asleep, talking in his sleep occasionally. and [id number] at bedside Family reports patient did fairly well over the weekend no behavioral issues. Patient remains confused. Patient had his Caro removed this a.m.-has not yet voided reports no new issues. Plan is to go to rehab at [facility] once medically stable. No fevers reported Review of Systems Unable to obtain Physical Exam Vital Signs (Past 24 Hours): Last Vital Signs Temp 37.2 C 08/07/18 11:15 Pulse 101 H 08/07/18 11:15 Resp 16 08/07/18 11:15 BP 113/72 08/07/18 11:15 Pulse Ox 95 08/07/18 10:05 Physical Exam: PE: Patient appears comfortable, no acute distress HEENT: EOMI, STEBBINS Respiratory: Unlabored, clear breath sounds CV: Tachycardic, trace edema right lower extremity Abdomen: Not distended : Caro catheter removed Neuro: Patient remains confused Time Spent Attending Total time spent 25 minutes with greater than 50% of the time spent at bedside discussing patient's current status, and goals of care.
--- NOTE | 2018-08-07 17:28 | Hospitalist Progress Note ---
Date of Service August 07, 2018 Assessment & Plan (1) Radicular leg pain: Patient with previous postherpetic neuralgia and left leg pain that has been refractory to multiple outpatient attempts at improving his pain. - MRI of his LS spine only showed some right-sided changes and mild to moderate spinal stenosis but nothing significant to explain his radicular left leg discomfort. - Continue gabapentin, scheduled acetaminophen & tramadol - At present, with some continued pain, but improved with capsaicin cream. (2) Hematuria: Possibly due to traumatic Caro insertion. Urology spent about an hour on 08/02 irrigating the Caro. - Caro removed on 08/07 with bladder scan pending. - Straight cath for UOP > 400 mL; will discuss tamsulosin vs. discharge on Caro (3) own: His reports the patient had some progressive dementia forgetting his 's name at times forgetting his daughter's name at times. Zyprexa did not work with escalating doses. This was abandoned on 07/29. - Continue Seroquel 50mg QHS and Remeron 15mg QHS - Monitor (4) Acute kidney injury superimposed on CKD: Baseline Cr is ~1.1 with eGFR of 60. May be from obstruction from the hematuria. Peaked at 2.1 on 07/31. - On 08/07, Cr was 1.5 without big change from 08/06 - Monitor (5) CVA (cerebral vascular accident): MRI brain on 07/27 showed incidental finding of acute punctate CVA. - Continue aspirin and atorvastatin (6) Thrombocytopenia: Platelets have been 30-60 for the last year (first noted in 07/2017 from a normal one in 2016). Unclear etiology, but may be preciptating bleeding. Follows outpatient with oncology. - Monitor platelets and bleeding while inpatient. (7) DVT prophylaxis: SCDs given low platelets and hematuria Subjective 88yo M w/ hx of dementia who presented with intractible left hip pain who developed hematuria after Caro insertion. Today, he reports continued left knee pain. Right on the kneecap itself. No real neuropathic pain. Tired this morning. Reports no fevers/chills, chest pain, shortness of breath, abdominal pain, nausea, or vomiting. Physical Exam Vital Signs (Past 24 Hours): Last Vital Signs Temp 37.5 C 08/07/18 15:13 Pulse 95 H 08/07/18 15:13 Resp 16 08/07/18 15:13 BP 97/60 L 08/07/18 15:13 Pulse Ox 98 08/07/18 15:13 Constitutional: WD/WN, vitals as above Eyes: EOM intact bilaterally; no conjunctival abnormality ENMT: external ear and nose normal, oropharynx normal Neck: trachea midline, no thyromegaly normal visual inspection Respiratory: normal respiratory effort, lungs clear to auscultation no respiratory distress Cardiovascular: RRR, no murmur, no edema Gastrointestinal (Abdomen): Inspection/Auscultation: abdomen normal to inspection; abdomen not distended Musculoskeletal: Knee: + knee abnormal to inspection (Swelling in right knee) Skin: no rashes, warm and dry Neurologic: moves all extremities and awake Psychiatric: Orientation: alert, oriented to person and cooperative
[2018-08-07] MEDS: QUETIAPINE FUMARATE 25 MG TABLET PO SCH (21:23)
[2018-08-07] MEDS: MIRTAZAPINE TAB 15 MG TAB PO SCH (21:23)
[2018-08-08] MEDS: ACETAMINOPHEN 500 MG TAB PO SCH (05:18)
[2018-08-08 07:47] LABS: Hematocrit (blood only) 18.9 % (42-52); Hemoglobin 6.2 g/dL (14.0-18.0); Mean Corpuscular Hgb Conc 32.8 g/dL (32-36); Mean Platelet Volume 10.1 fL (7.4-10.4); Platelet Count 48 K/uL (130-400); RDW Coefficient of Variation 22.7 % (11.5-14.5); RDW Standard Deviation 76.1 fL (36.4-46.3); Red Blood Count 1.99 M/uL (4.7-6.1); White Blood Count 1.71 K/uL (4.8-10.8)
[2018-08-08 08:04] LABS: BUN Creatinine Ratio 20.6 (10-20); Creatinine Clr Calc Pharmacy 43.6 ml/min; Est GFR (African American) 61.1; Est GFR (Non-African American) 52.8; Magnesium 2.1 mg/dl (1.8-2.4)
[2018-08-08 08:14] LABS: Eosinophils # (auto) 0.01 K/uL (0-0.5); Eosinophils % (auto) 0.6 %; Immature Granulocytes # (auto) 0.02 K/uL (0.00-0.02); Immature Granulocytes % (auto) 1.2 %; Lymphocytes # (auto) 1.03 K/uL (1.2-3.4); Lymphocytes % (auto) 60.2 %; Monocytes # (auto) 0.09 K/uL (0.11-0.59); Monocytes % (auto) 5.3 %; Neutrophils # (auto) 0.56 K/uL (1.4-6.5); Neutrophils % (auto) 32.7 %; RBC Morphology Unremarkable
[2018-08-08] MEDS: GABAPENTIN 100 MG CAP PO SCH ×2 (08:18→22:07)
[2018-08-08] MEDS: MENTHOL-ZINC OXIDE 360 APPLN/120 GM TUBE EXT SCH ×2 (09:35→22:06)
[2018-08-08] MEDS ORDERED: SODIUM CHLORIDE 0.9% 250 ML IV PRN (11:22)
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
[2018-08-08] MEDS: TRAMADOL HCL 50 MG TABLET PO PRN (12:13)
--- NOTE | 2018-08-08 13:22 | Hospitalist Progress Note ---
Date of Service August 08, 2018 Assessment & Plan (1) Anemia: Hgb dropped from 8.1 on 08/06 to 6.2 on 08/08. Ddx includes recurrent GI bleed (shallow ulcer noted on EGD in 12/2017) vs. bone marrow suppression from an unknown bone marrow process. - GI consulted - Appreciate recs: No role for repeat EGD at this time - PPI BID - Trend hgb - Transfuse as needed - Discussed with palliative care who will discuss with Dr. Espinoza. At this time, patient's (POA) does not want to pursue bone marrow biopsy given treatment options would be limited and likely fairly difficult on the patient. (2) Radicular leg pain: Patient with previous postherpetic neuralgia and left leg pain that has been refractory to multiple outpatient attempts at improving his pain. - MRI of his LS spine only showed some right-sided changes and mild to moderate spinal stenosis but nothing significant to explain his radicular left leg discomfort. - Continue gabapentin, acetaminophen, & tramadol - At present, still with the pain. Will trial diclofenac gel as well. (3) Hematuria: Possibly due to traumatic Caro insertion. Urology spent about an hour on 08/02 irrigating the Caro. - Caro removed on 08/07 with bladder scan pending. - Straight cath for UOP > 400 mL - Straight cathed once on 08/07; will trial once further, then re-insert catheter (4) : His reports the patient had some progressive dementia forgetting his 's name at times forgetting his daughter's name at times. Zyprexa did not work with escalating doses. This was abandoned on 07/29. - Continue Seroquel 50mg QHS and Remeron 15mg QHS - Monitor (5) Acute kidney injury superimposed on CKD: Baseline Cr is ~1.1 with eGFR of 60. May be from obstruction from the hematuria. Peaked at 2.1 on 07/31. - On 08/08, Cr was 1.2 - Monitor (6) CVA (cerebral vascular accident): MRI brain on 07/27 showed incidental finding of acute punctate CVA. - Holding aspirin and atorvastatin given his DNR status and possible GI bleed (7) Thrombocytopenia: Platelets have been 30-60 for the last year (first noted in 07/2017 from a normal one in 2017). Unclear etiology, but may be preciptating bleeding. Follows outpatient with oncology. - Monitor platelets and bleeding while inpatient. - See Anemia above (8) DVT prophylaxis: SCDs given low platelets and hematuria Subjective 88yo M w/ hx of dementia who presented with intractible left hip pain who developed hematuria after Caro insertion. Today, his mental status precludes a full ROS. He does report continued right knee pain. No further ROS available as he is fixated on this and is very lethargic. Physical Exam Vital Signs (Past 24 Hours): Last Vital Signs Temp 36.5 C 08/08/18 11:44 Pulse 82 08/08/18 11:44 Resp 20 08/08/18 11:44 BP 127/72 08/08/18 11:44 Pulse Ox 97 08/08/18 11:44 Constitutional: WD/WN, vitals as above + acute distress Eyes: EOM intact bilaterally; no conjunctival abnormality ENMT: external ear and nose normal, oropharynx normal Neck: trachea midline, no thyromegaly normal visual inspection Respiratory: normal respiratory effort, lungs clear to auscultation no respiratory distress Cardiovascular: RRR, no murmur, no edema Gastrointestinal (Abdomen): Inspection/Auscultation: abdomen normal to inspection; abdomen not distended Musculoskeletal: Knee: + knee abnormal to inspection (Swelling in right knee) Skin: no rashes, warm and dry Neurologic: moves all extremities and + confused Psychiatric: Orientation: cooperative
[2018-08-08] MEDS: DICLOFENAC SOD 1% GEL 100 GM TUBE EXT PRN (14:46)
[2018-08-08] MEDS: PANTOprazole 40 MG in SYRINGE 0 ML IV SCH ×2 (14:46→22:07)
--- NOTE | 2018-08-08 15:51 | Palliative Care Progress Note ---
Date of Service August 08, 2018 Assessment & Plan (1) Anemia: -H/H 6.2/18.9 today. -GI consulted-- hx gastric ulcer. No need for endoscopy at this time due to no signs of active bleeding. -Spoke with Dr. Espinoza, he would be surprised if this profound anemia was due to the possible MDS. -Trend H/Hs, treat conservatively per hospitalist management. (2) Radicular leg pain: (3) Stroke: (4) Post herpetic neuralgia: (5) Goals of care, counseling/discussion: -Goals of care at this time uncertain. New complications continue to arise. -Caro catheter was removed over weekend. -6c on FAST scale. PPS 40%. -Uncertain of recovery potential at this point. Will continue to follow. Subjective Respiratory: + cough; no dyspnea Gastrointestinal: + abdominal pain (some soreness at level of bladder.); no nausea and no vomiting Neurologic: + confusion (baseline) Physical Exam Vital Signs (Past 24 Hours): Last Vital Signs Temp 37.0 C 08/08/18 15:48 Pulse 89 08/08/18 15:48 Resp 20 08/08/18 15:48 BP 123/75 08/08/18 15:48 Pulse Ox 94 08/08/18 15:48 Constitutional: well developed and well nourished; no acute distress ENMT: external ear and nose normal, oropharynx normal Ears: + hearing impairment Neck: normal visual inspection and trachea midline Respiratory: normal respiratory effort, lungs clear to auscultation Auscultation: + diminished lung sounds (bases) Cardiovascular: Rate/Rhythm: regular rate and regular rhythm Heart Sounds: + murmur Gastrointestinal (Abdomen): Inspection/Auscultation: abdomen normal to inspection and normal bowel sounds; abdomen not distended Percussion/Palpation: abdomen soft Neurologic: awake and + confused Psychiatric: Orientation: oriented to person and oriented to place; + not oriented to time Time Spent Midlevel 25 minutes with >50% of time spent at bedside with patient and discussing condition and POC.
--- NOTE | 2018-08-08 16:27 | Urology Progress Note ---
Date of Service August 08, 2018 Assessment & Plan (1) Hematuria: 88yo M with hematuria and urinary retention. Caro catheter d/c'd yesterday per order. Pt has been unable to void spontaneously x24 hours. Requiring straight cath q6h without difficulty. Pt appears more comfortable without indwelling catheter. Plan to continue straight cath for now but may require replacement of indwelling catheter if no improvement by tomorrow AM. Recommend use of 18 fr coude catheter. Thank you for the consultation, we will continue to monitor with primary service. Subjective 88yo M with hematuria, improved clot retention. RN and at bedside at time of evaluation. H/H drop overnight - recieving blood transfusion today. Pt has not been able to void spontaneously since cath removal. Has required straight cath q6h for large volumes - pink tinged with small clots per patient report. Per nursing, there has been no difficulty with straight cath. Pt denies urge to void. per he has not been complaining of penile burning and appears overall more comfortable without indwelling catheter. Physical Exam Vital Signs (Past 24 Hours): Last Vital Signs Temp 37.0 C 08/08/18 15:48 Pulse 89 08/08/18 15:48 Resp 20 08/08/18 15:48 BP 123/75 08/08/18 15:48 Pulse Ox 94 08/08/18 15:48 Physical Exam: A&0x self RRR abd soft, nontender no suprapubic tenderness with palpation Results & Data Laboratory Results Laboratory Results - last 48 hr 08/08/18 08/08/18 08/08/18 07:01 07:01 11:42 WBC 1.71 L RBC 1.99 L Hgb 6.2 L* Hct 18.9 L* MCV 95.0 MCH 31.2 MCHC 32.8 RDW Std Deviation 76.1 H RDW Coeff of Key 22.7 H Plt Count 48 L MPV 10.1 Immature Gran % (Auto) 1.2 Neut % (Auto) 32.7 Lymph % (Auto) 60.2 Aiken % (Auto) 5.3 Eos % (Auto) 0.6 Baso % (Auto) 0.0 Immature Gran # (Auto) 0.02 Neut # (Auto) 0.56 L* Lymph # (Auto) 1.03 L Aiken # (Auto) 0.09 L Eos # (Auto) 0.01 Baso # (Auto) 0.00 RBC Morphology Unremarkable Sodium 143 Potassium 4.0 Chloride 110 H Carbon Dioxide 27 Anion Gap 6.0 BUN 25 H Creatinine 1.21 Est Cr Clr Drug Dosing 43.6 Est GFR ( Amer) 61.1 Est GFR (Non-Af Amer) 52.8 BUN/Creatinine Ratio 20.6 H Glucose 102 H Calcium 8.0 L Magnesium 2.1 Blood Type A Positive Antibody Screen NEGATIVE Crossmatch See Detail
[2018-08-08] MEDS: MIRTAZAPINE TAB 15 MG TAB PO SCH (22:07)
[2018-08-08] MEDS: QUETIAPINE FUMARATE 25 MG TABLET PO SCH (22:08)
[2018-08-08] MEDS: LORazepam 0.5 MG TAB SL PRN (22:35)
[2018-08-09] MEDS: HALOPERIDOL LACTATE 5 MG/ML 1 ML VIAL IM PRN (00:38)
[2018-08-09] MEDS: DICLOFENAC SOD 1% GEL 100 GM TUBE EXT PRN ×3 (02:14→18:55)
--- NOTE | 2018-08-09 07:52 | Urology Progress Note ---
Date of Service August 09, 2018 Assessment & Plan (1) Hematuria: 88yo M with hematuria and urinary retention. Pt has been unable to void spontaneously x26. Requiring straight cath q6h without difficulty. Discussed options with . Goal to palliate situation, understands. Pt continues to have lack of sensation to void - concern for detrusor failure. Discussed with Dr. Banks - would recommend continued straight cath q6h. Avoid replacing indwelling catheter as this causes discomfort and irritation. We will arrange for outpatient cystoscopy exam with our service. Thank you for the consultation, please recontact us with additional concerns, questions or changes in patient status. Subjective 88yo M with hematuria, improved clot retention. RN and at bedside at time of evaluation. Per patient is "in a mood" today. Continues to be unable to void spontaneously, requiring straight cath q6h. Last void documented 500cc dark green urine. Physical Exam 2 Vital Signs (Past 24 Hours): Last Vital Signs Temp 37.0 C 08/08/18 19:54 Pulse 96 H 08/08/18 19:54 Resp 20 08/08/18 19:54 BP 153/75 H 08/08/18 19:54 Pulse Ox 98 08/08/18 19:54 Physical Exam: Alert, Oriented x1 RRR sitting in chair, no distress. Abd soft, nontender Results & Data Laboratory Results Laboratory Results - last 48 hr 08/08/18 08/08/18 08/08/18 07:01 07:01 11:42 WBC 1.71 L RBC 1.99 L Hgb 6.2 L* Hct 18.9 L* MCV 95.0 MCH 31.2 MCHC 32.8 RDW Std Deviation 76.1 H RDW Coeff of Kye 22.7 H Plt Count 48 L MPV 10.1 Immature Gran % (Auto) 1.2 Neut % (Auto) 32.7 Lymph % (Auto) 60.2 Rowan % (Auto) 5.3 Eos % (Auto) 0.6 Baso % (Auto) 0.0 Immature Gran # (Auto) 0.02 Neut # (Auto) 0.56 L* Lymph # (Auto) 1.03 L Rowan # (Auto) 0.09 L Eos # (Auto) 0.01 Baso # (Auto) 0.00 RBC Morphology Unremarkable Sodium 143 Potassium 4.0 Chloride 110 H Carbon Dioxide 27 Anion Gap 6.0 BUN 25 H Creatinine 1.21 Est Cr Clr Drug Dosing 43.6 Est GFR ( Amer) 61.1 Est GFR (Non-Af Amer) 52.8 BUN/Creatinine Ratio 20.6 H Glucose 102 H Calcium 8.0 L Magnesium 2.1 Blood Type A Positive Antibody Screen NEGATIVE Crossmatch See Detail
[2018-08-09] MEDS: PANTOprazole 40 MG in SYRINGE 0 ML IV SCH (08:29)
[2018-08-09] MEDS: GABAPENTIN 100 MG CAP PO SCH ×2 (08:29→20:39)
[2018-08-09] MEDS: TRAMADOL HCL 50 MG TABLET PO PRN (08:35)
[2018-08-09 09:19] LABS: Hematocrit (blood only) 29.3 % (42-52); Hemoglobin 9.7 g/dL (14.0-18.0); Immature Granulocytes # (auto) 0.03 K/uL (0.00-0.02); Immature Granulocytes % (auto) 1.1 %; Lymphocytes # (auto) 0.78 K/uL (1.2-3.4); Lymphocytes % (auto) 29.8 %; Mean Corpuscular Hgb Conc 33.1 g/dL (32-36); Mean Corpuscular Volume 93.3 fL (80-100); Mean Platelet Volume 11.2 fL (7.4-10.4); Monocytes % (auto) 3.8 %; Neutrophils # (auto) 1.71 K/uL (1.4-6.5); Neutrophils % (auto) 65.3 %; Platelet Count 53 K/uL (130-400); RDW Coefficient of Variation 20.6 % (11.5-14.5); RDW Standard Deviation 68.5 fL (36.4-46.3); Red Blood Count 3.14 M/uL (4.7-6.1); White Blood Count 2.62 K/uL (4.8-10.8)
[2018-08-09 09:47] LABS: Calcium 8.3 mg/dl (8.5-10.1); Creatinine Clr Calc Pharmacy 44.2 ml/min; Est GFR (African American) 62.4; Est GFR (Non-African American) 53.8; Magnesium 1.9 mg/dl (1.8-2.4)
[2018-08-09 10:19] LABS: Anisocytosis Present
[2018-08-09] MEDS: MENTHOL-ZINC OXIDE 360 APPLN/120 GM TUBE EXT SCH ×2 (11:05→20:37)
--- NOTE | 2018-08-09 12:49 | Palliative Care Progress Note ---
Date of Service August 09, 2018 Assessment & Plan (1) Anemia: -hgb >10 today. Recieved PRBCs 08/08. -GI consulted-- hx gastric ulcer. No need for endoscopy at this time due to no signs of active bleeding. (2) Radicular leg pain: -Controlled. (3) Stroke: -New. Very small punctate infarcts found on MRI brain. -Neurology following and made recommendations. -Not likely the cause of his symptoms. (4) Post herpetic neuralgia: -Gabapentin 300mg PO BID. -Controlled. (5) Goals of care, counseling/discussion: -Patient's states she just wants to take patient home. Does not want SNF for rehab. -Concerns that patient has not peed on his own since removal of Caro. Is needing straight cath periodically-- states she would not be able to do this herself at home. If she does want to take patient home and he is not able to urinate on his own, she may need to hire caregivers. -Discussed home health vs. hospice according to goals of care. states that she is aware of patient's moderately severe dementia, and the fact that with his comorbidities, he would qualify for hospice. She is open to the idea of hospice but thinks she'd like to give home health a try first. I encouraged her to choose a HH agency that also has hospice, [facility]. Case management following and will give lists of private duty caregivers, home health, and hospice. Subjective Patient sitting up in a chair. at bedside Patient apparently had another "bad night" per the . Did not sleep, was very confused. Today, he looks okay. Is calm and cooperative. expresses her wishes to take patient home. Respiratory: + cough; no dyspnea Cardiovascular: no chest pain and no edema Gastrointestinal: + abdominal pain (some soreness at level of bladder.); no nausea and no vomiting Neurologic: + confusion (baseline) Psychiatric: + abnormal sleep pattern (reported by ) and + hallucinations (reported by ) Physical Exam Vital Signs (Past 24 Hours): Last Vital Signs Temp 37.2 C 08/09/18 11:41 Pulse 105 H 08/09/18 11:41 Resp 16 08/09/18 11:41 BP 125/74 08/09/18 11:41 Pulse Ox 98 08/09/18 11:41 Constitutional: well developed and well nourished; no acute distress ENMT: external ear and nose normal, oropharynx normal Ears: + hearing impairment Neck: normal visual inspection and trachea midline Respiratory: normal respiratory effort, lungs clear to auscultation Auscultation: + diminished lung sounds (bases) Cardiovascular: Rate/Rhythm: regular rate and regular rhythm Gastrointestinal (Abdomen): Inspection/Auscultation: abdomen normal to inspection and normal bowel sounds; abdomen not distended Percussion/Palpation: abdomen soft Neurologic: awake and + confused Psychiatric: Orientation: oriented to person and oriented to place; + not oriented to time Time Spent Midlevel 35 minutes with >50% of time spent at bedside with patient and discussing plan of care and GOC.
[2018-08-09] MEDS: ACETAMINOPHEN 500 MG TAB PO PRN (14:21)
--- NOTE | 2018-08-09 17:12 | Hospitalist Progress Note ---
Date of Service August 09, 2018 Assessment & Plan (1) Anemia: Hgb dropped from 8.1 on 08/06 to 6.2 on 08/08. Ddx includes recurrent GI bleed (shallow ulcer noted on EGD in 12/2017) vs. bone marrow suppression from an unknown bone marrow process. - GI consulted - Appreciate recs: No role for repeat EGD at this time - PPI BID - Discussed with palliative care who will discuss with Dr. Espinoza. At this time, patient's (POA) does not want to pursue bone marrow biopsy given treatment options would be limited and likely fairly difficult on the patient. - Hgb stable on 08/09 at 9.7. Continue conservative medical management. (2) Radicular leg pain: Patient with previous postherpetic neuralgia and left leg pain that has been refractory to multiple outpatient attempts at improving his pain. - MRI of his LS spine only showed some right-sided changes and mild to moderate spinal stenosis but nothing significant to explain his radicular left leg discomfort. - Continue gabapentin, acetaminophen, & tramadol - At present, still with the pain. Will trial diclofenac gel as well. (3) Hematuria: Possibly due to traumatic Caro insertion. Urology spent about an hour on 08/02 irrigating the Caro. - Caro removed on 08/07 with bladder scan pending. - Attempted to trial straight cath for UOP > 400 mL; however, had to have multiple straight caths - Started alfuzosin and re-inserted catheter on 08/09 for continued retention. Will likely discharge with catheter and have outpatient follow up. (4) own: His reports the patient had some progressive dementia forgetting his 's name at times forgetting his daughter's name at times. Zyprexa did not work with escalating doses. This was abandoned on 07/29. - Continue Seroquel 50mg QHS and Remeron 15mg QHS - Still having good and bad days. feels he would do better at home, so arranging home health & hospice to help with home support. (5) Acute kidney injury superimposed on CKD: Baseline Cr is ~1.1 with eGFR of 60. May be from obstruction from the hematuria. Peaked at 2.1 on 07/31. - On 08/08, Cr was 1.2 - Monitor (6) CVA (cerebral vascular accident): MRI brain on 07/27 showed incidental finding of acute punctate CVA. - Holding aspirin and atorvastatin given his DNR status and possible GI bleed (7) Thrombocytopenia: Platelets have been 30-60 for the last year (first noted in 07/2017 from a normal one in 2017). Unclear etiology, but may be preciptating bleeding. Follows outpatient with oncology. - Monitor platelets and bleeding while inpatient. - See Anemia above (8) DVT prophylaxis: SCDs given low platelets and hematuria Subjective 88yo M w/ hx of dementia who presented with intractible left hip pain who developed hematuria after Caro insertion. Today, his mental status precludes a full ROS. He does report continued right knee pain. No further ROS available as he is fixated on this and is somewhat agitated. Physical Exam Vital Signs (Past 24 Hours): Last Vital Signs Temp 37.2 C 08/09/18 11:41 Pulse 105 H 08/09/18 11:41 Resp 16 08/09/18 11:41 BP 125/74 08/09/18 11:41 Pulse Ox 98 08/09/18 11:41 Constitutional: WD/WN, vitals as above + acute distress Eyes: EOM intact bilaterally; no conjunctival abnormality ENMT: external ear and nose normal, oropharynx normal Neck: trachea midline, no thyromegaly normal visual inspection Respiratory: normal respiratory effort, lungs clear to auscultation no respiratory distress Cardiovascular: RRR, no murmur, no edema Gastrointestinal (Abdomen): Inspection/Auscultation: abdomen normal to inspection; abdomen not distended Musculoskeletal: Knee: + knee abnormal to inspection (Swelling in right knee) Skin: no rashes, warm and dry Neurologic: moves all extremities and + confused Psychiatric: Orientation: cooperative
[2018-08-09] MEDS: QUETIAPINE FUMARATE 25 MG TABLET PO SCH (20:38)
[2018-08-09] MEDS: MIRTAZAPINE TAB 15 MG TAB PO SCH (20:38)
[2018-08-09] MEDS: PANTOprazole 40 MG TAB PO SCH (20:38)
[2018-08-09] MEDS ORDERED: TAMSULOSIN HCL 0.4 MG CAP PO SCH (21:00)
[2018-08-09] MEDS ORDERED: ALFUZOSIN HCL 10 MG TAB PO SCH (21:00)
[2018-08-10 08:02] LABS: Hemoglobin 9.6 g/dL (14.0-18.0); Mean Corpuscular Hgb Conc 33.1 g/dL (32-36); Mean Corpuscular Volume 93.5 fL (80-100); RDW Coefficient of Variation 20.6 % (11.5-14.5); White Blood Count 2.97 K/uL (4.8-10.8)
[2018-08-10] MEDS: GABAPENTIN 100 MG CAP PO SCH (08:04)
[2018-08-10] MEDS: PANTOprazole 40 MG TAB PO SCH (08:04)
[2018-08-10] MEDS: ACETAMINOPHEN 500 MG TAB PO PRN (08:05)
[2018-08-10] MEDS: DICLOFENAC SOD 1% GEL 100 GM TUBE EXT PRN (08:05)
[2018-08-10] MEDS: MENTHOL-ZINC OXIDE 360 APPLN/120 GM TUBE EXT SCH (08:06)
[2018-08-10 08:08] LABS: Mean Platelet Volume 9.9 fL (7.4-10.4); Platelet Count 42 K/uL (130-400)
--- NOTE | 2018-08-10 10:57 | Progress Note ---
DATE: 08/10/2018 DIAGNOSES: 1. Chronic pain syndrome. 2. CVA, lacunar infarcts of the right parietal and occipital regions. 3. Altered mental status/early dementia. 4. Hematuria. 5. Pancytopenia, etiology unclear, suspect underlying myelodysplasia. SUBJECTIVE: The patient was seen and examined at bedside. He is once again accompanied by his , who is helping him with breakfast. Nursing reports the patient is approaching discharge and has opted to take him home, which I do not necessarily agree with. He was transfused 2 units of packed RBCs. Urology has had problems with urinary retention and had to replace Caro catheter in last 24 hours. Urine appearance looks better, definitely less dark. The patient is actively enjoying his breakfast, so it seems like he is picking up from a dietary perspective. PHYSICAL EXAMINATION: GENERAL: Very pleasant 88-year-old gentleman, awake and alert, but clearly remains disoriented. VITAL SIGNS: Temperature 37.7, pulse 94, respiratory rate 18, blood pressure 133/75. SKIN: No acute rashes or lesions. HEENT: Oral mucosa without erythema or ulceration. NECK: Supple. Trachea is midline. HEART: Regular rate and rhythm. LUNGS: Clear to auscultation bilaterally. ABDOMEN: Soft, nontender, nondistended. EXTREMITIES: No clubbing, cyanosis or edema. NEUROLOGICAL: Again, he is awake and alert, but clearly confused and disoriented. LABORATORY DATA: WBC count 2970, hemoglobin 9.6, platelet count 42,000. Sodium 144, potassium 4.0, chloride 113, carbon dioxide 25, BUN 19, creatinine 1.19. IMPRESSION: 1. Pancytopenia. 2. Chronic pain syndrome/radicular leg pain. 3. Hematuria. 4. Altered mental status/cognitive defect. 5. Cerebrovascular accident. 6. Deep venous thrombosis prophylaxis. PLAN: Visited with the patient and his at bedside today. I once again reinforced my concern with the patient going home moving forward. Mrs. Gillis is making arrangements for home nursing, which definitely will be helpful; however, I worry that she will be quickly overwhelmed with the care required moving forward. She expressed fear that the patient continuing to sundown if he was at [facility] and would give up hope. In regards to his hematologic issue, I will continue a supportive stance and again not in favor of pursuing bone marrow biopsy and aspiration, but would be amenable to transfusional support in the patient's case. He also has ongoing urologic issues and again we will defer to the urologist on how to manage this issue best. Mrs. Gillis seems to be adamant about taking the patient home and I wished her well. Nonetheless, she can contact me should she need assistance moving forward. Again, appreciate the hospitalist help in managing this very pleasant, but complex gentleman. EUSEBIO
--- NOTE | 2018-08-10 16:44 | Discharge Summary ---
Date of Service August 10, 2018 Admission HPI Per Admitting Provider Patient was visiting Dr. Espinoza in his office where he described significant intractable pain mostly to his left leg radiating to his great toe. The patient is previously been seen pain management his primary care physician and even Dr. Thomas Hodge without relief of his pain. He did have an episode of postoperative hospital stay zoster outbreak on his right inner thigh but is most of his pain is bothered by his left leg. He has no evidence of persistent skin changes and his pain does come in waves being very intense at times causing him to yell out. His also recalls the fact that he has been having some hallucinations at home which she is been attributing to the different medications he has been tried. It looks that the patient initially was placed on Valtrex and gabapentin in December for his shingles without much help the gabapentin was then transition to Lyrica also without much help patient saw his pain management which recommended tricyclics at night which did not help patient was on trazodone at night to try to help with sleep. Patient was placed on topical combination of amantadine baclofen and gabapentin amitriptyline and bupivacaine without help. 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 Hematuria due to traumatic Caro Discharge Exam Constitutional WD/WN, vitals as above + acute distress Eyes EOM intact bilaterally; no conjunctival abnormality ENMT external ear and nose normal, oropharynx normal Neck trachea midline, no thyromegaly normal visual inspection Respiratory normal respiratory effort, lungs clear to auscultation no respiratory distress Cardiovascular RRR, no murmur, no edema Gastrointestinal (Abdomen) Inspection/Auscultation: abdomen normal to inspection; abdomen not distended Musculoskeletal Knee: + knee abnormal to inspection (Swelling in right knee) Skin no rashes, warm and dry Neurologic moves all extremities and + confused Psychiatric Orientation: cooperative Discharge Data Allergies Allergy/AdvReac Type Severity Reaction Status Date / Time No Known Allergies Allergy Verified 07/11/18 14:12 Consultations 07/27/18 11:17 Consult Case Management - Discharge Planning Routine 07/27/18 13:56 Consult Oncology Routine Consult Palliative Care Routine 07/28/18 08:37 Consult Neurology Routine 07/28/18 08:38 Consult Case Management - Discharge Planning Routine 07/31/18 16:45 Consult Urology Routine 08/08/18 11:20 Consult Gastroenterology Routine Ordered Studies 07/27/18 17:52 MR brain wo con Routine MR lumbar spine wo con Routine 07/29/18 08:30 US carotid doppler BI Routine Hospital Course (1) Anemia: Hgb dropped from 8.1 on 08/06 to 6.2 on 08/08. Ddx includes recurrent GI bleed (shallow ulcer noted on EGD in 12/2017) vs. bone marrow suppression from an unknown bone marrow process. - GI consulted - Appreciate recs: No role for repeat EGD at this time - PPI BID - At this time, patient's (POA) does not want to pursue bone marrow biopsy given treatment options would be limited and likely fairly difficult on the patient. - Hgb stable on 08/10 at 9.6. Continued with conservative medical management. - To a large extent, I am not convinced this was a GI bleed at all, but just poor bone marrow response to continued lab draws while inpatient. (2) Radicular leg pain: Patient with previous postherpetic neuralgia and left leg pain that has been refractory to multiple outpatient attempts at improving his pain. - MRI of his LS spine only showed some right-sided changes and mild to moderate spinal stenosis but nothing significant to explain his radicular left leg discomfort. - Continue gabapentin, acetaminophen, & tramadol - Improved with diclofenac gel and capsaicin gel. Probably mixed arthritis and post-herpetic neuralgia picture. (3) Hematuria: Possibly due to traumatic Caro insertion. Urology spent about an hour on 08/02 irrigating the Caro. - Caro removed on 08/07 with bladder scan pending. - Attempted to trial straight cath for UOP > 400 mL; however, had to have multiple straight caths - Started alfuzosin and re-inserted catheter on 08/09 for continued retention. Will likely discharge with catheter and have outpatient follow up. (4) own: His reports the patient had some progressive dementia forgetting his 's name at times forgetting his daughter's name at times. Zyprexa did not wo rk with escalating doses. This was abandoned on 07/29. - Continue Seroquel 50mg QHS and Remeron 15mg QHS - Still having good and bad days. feels he would do better at home, so arranging home health & hospice to help with home support. (5) Acute kidney injury superimposed on CKD: Baseline Cr is ~1.1 with eGFR of 60. May be from obstruction from the hem aturia. Peaked at 2.1 on 07/31. - On 08/08, Cr was 1.2 (6) CVA (cerebral vascular accident): MRI brain on 07/27 showed incidental finding of acute punctate CVA. - Conservative care with aspirin and atorvastatin given his DNR status (7) Thrombocytopenia: Platelets have been 30-60 for the last year (first noted in 07/2017 from a normal one in 2017). Unclear etiology, but may be preciptating bleeding. Follows outpatient with oncology. - Monitor platelets and bleeding while inpatient. - See Anemia above Total Time Total Time Spent Total Time Spent (In Minutes): 45 Total Time Includes: Examination of the Patient, Discharge Planning and Medication Reconciliation Discharge Plan Discharge Items Patient Disposition: Home - Home Health Services Reason For Visit: INTRACTABLE NEUROPATHIC PAIN Discharge Diagnosis: Left knee pain; possible GI bleeding Discharge Goals: Decrease discomfort, Diagnostic testing and Improve nutritional status Activity: Resume your previous activity Non-emergency contact: Primary Care Provider Call non-emergency contact if: you have any medication questions, your symptoms worsen, your pain is not controlled and your temperature is above 101 Follow-up/Referrals: Thomas Combs MD [Primary Care Provider] - 08/16/18 11:00 am (Please, follow up at Dr. Thomas Combs's office with his first assistant, Nita Melchor PA-C, on TuesdayAugust 16 at 11:00 am. *If you need to change this appointment, call the office at [phone].) Danilo Eric MD [Physician] - 08/30/18 10:30 am (Please follow up with urology for possible catheter removal on TuesdayAugust 30 at 10:30 am. This office is located at [address] [facility] in [place]. If you have any questions, call the office at [phone].) Diet: Regular Addtl Provider Instructions: Mr. Gillis, You were admitted to the hospital for knee pain that we think was due to arthritis and shingles. We tried a variety of medications while you were here, and two topical medications seemed to help the most. We also believe you have moderate/severe dementia. Please follow up with your PCP to keep track of how you are doing. While you were here, you had a Caro catheter placed which resulted in bleeding from your penis (in your urine). With time, this went away; however, you continued to have urinary issues. We had to re-insert a catheter. You should keep this catheter in until you are seen by the urology clinic in 1-2 weeks. They may be able to remove the catheter and keep it out. We have started you on a new medication to help relieve prostate enlargement which is the most common cause of urinary issues in men. Please discuss with your urologist if you are having any lightheadedness, dizziness, or further bleeding through the catheter. Prescriptions: New alfuzosin 10 mg Tablet Extended Release 24 Hr 10 mg PO QPM Qty: 30 RF: 0 gabapentin 300 mg capsule 300 mg PO BID Qty: 60 RF: 0 tramadol 50 mg Tablet 50 mg PO TID PRN (Reason: pain) Qty: 30 RF: 0 diclofenac sodium [Voltaren] 1 % Gel See Rx Instructions .ROUTE .COMPLEX PRN (Reason: pain) Qty: 100 RF: 0 mirtazapine 15 mg Tablet 15 mg PO HS Qty: 30 RF: 0 Calmoseptine 0.44-20.6 % Ointment 1 applic EXT BID PRN (Reason: skin irritation) Qty: 71 RF: 0 Zostrix 0.033 % Cream See Rx Instructions .ROUTE .COMPLEX PRN (Reason: pain) Qty: 56.6 RF: 0 quetiapine 50 mg tablet 50 mg PO HS Qty: 30 RF: 0 Changed pantoprazole [Protonix] 40 mg Tablet,Delayed Release (Dr/Ec) 40 mg PO BID Qty: 0 RF: 0 Discontinued gabapentin 100 mg capsule 200 mg PO HS RF: 0 quetiapine 25 mg Tablet 25 mg PO HS RF: 0 Stand-Alone Forms: [facility] Discharge Orders: Discharge Order (Routine); Ordered 08/10/18 Ordered By: Meliton Banks Admission Data Admit Date/Time: 07/31/18 10:05 Attending Provider: Meliton Banks Admit Provider: Jorge Mcneal Primary Care Provider: Thomas Combs Other Providers: Vincenzo Espinoza V ; Tisha Villeda ; Abdoulaye Espinosa ; Danilo Eric ; Chris Perez Service: Medical Other Interventions: Discharge Summary Assessment (RN) Last Done: 08/10/18 11:20 DC Date/Time DO NOT enter until pt leaves facility: 08/10/18 13:30
== END 2018-08-10 13:30 | disposition home health service (06) | DRG 73 ==
LOC: 4E → SUATTDRO 10:44
DX: I63.81 Other cerebral infarction due to occlusion or stenosis of small artery; N18.9 Chronic kidney disease, unspecified; F05 Delirium due to known physiological condition; R31.9 Hematuria, unspecified; Z79.899 Other long term (current) drug therapy; B02.29 Other postherpetic nervous system involvement; I12.9 Hypertensive chronic kidney disease with stage 1 through stage 4 chronic kidney disease, or unspecified chronic kidney disease; D61.818 Other pancytopenia; Z51.5 Encounter for palliative care; J18.1 Lobar pneumonia, unspecified organism; N17.9 Acute kidney failure, unspecified; F03.90 Unspecified dementia, unspecified severity, without behavioral disturbance, psychotic disturbance, mood disturbance, and anxiety; H53.16 Psychophysical visual disturbances; G89.4 Chronic pain syndrome

== ENCOUNTER 2018-09-04 08:47 | Inpatient (IN) ==
[2018-09-04] MEDS ORDERED: SODIUM CHLORIDE 0.9% 1000ML 500 ML IV ONE (09:05)
--- NOTE | 2018-09-04 09:35 | XRay Report ---
SINGLE VIEW CHEST CLINICAL HISTORY: Change in mental status. FINDINGS: An AP, portable, upright chest radiograph is compared to study dated 07/30/2018. The examina tion is degraded by portable technique and patient rotation. The heart is enlarged and there is athe rosclerotic calcification of the thoracic aorta. The pulmonary vasculature is noncongested. Bibasilar airspace opacities likely represent atelectasis. No large pleural effusion or pneumothorax is seen. The skeletal structures are osteopenic. The bony thorax is grossly intact. IMPRESSION: 1. Cardiomegaly without radiographic evidence of congestive failure. 2. Bibasilar opacities likely represent atelectasis. Clinical correlation will be required. Electronically signed by: Jensen Leonard M.D. 09/04/2018 9:34 AM
[2018-09-04 10:05] LABS: Hematocrit (blood only) 28.6 % (42-52); Hemoglobin 9.3 g/dL (14.0-18.0); Mean Corpuscular Hgb Conc 32.5 g/dL (32-36); Mean Corpuscular Volume 98.3 fL (80-100); Mean Platelet Volume 11.1 fL (7.4-10.4); Platelet Count 37 K/uL (130-400); RDW Coefficient of Variation 19.3 % (11.5-14.5); Red Blood Count 2.91 M/uL (4.7-6.1)
[2018-09-04 10:09] LABS: INR 1.2 (0.9-1.1); Prothrombin Time 12.4 Seconds (9.0-12.0)
[2018-09-04 10:14] LABS: Alanine Aminotransferase 12 U/L (12-78); Aspartate Aminotransferase 18 U/L (15-37); BUN Creatinine Ratio 14.4 (10-20); Bilirubin Direct 0.3 mg/dl (0-0.2); Blood Urea Nitrogen 21 mg/dl (7-18); Calcium 8.8 mg/dl (8.5-10.1); Carbon Dioxide 25 mmol/L (21-32); Chloride 107 mmol/L (98-107); Creatinine Clr Calc Pharmacy 37.1 ml/min; Est GFR (African American) 50.4; Est GFR (Non-African American) 43.5; Glucose 111 mg/dl (70-99); Magnesium 2.2 mg/dl (1.8-2.4); Sodium 140 mmol/L (136-145)
[2018-09-04 10:19] LABS: Alkaline Phosphatase 83 U/L (45-117); Bilirubin,Total 0.8 mg/dl (0.2-1); Total Protein 7.5 gm/dl (6.4-8.2); Troponin I < 0.015 ng/ml (0-0.045)
--- NOTE | 2018-09-04 10:24 | CT Scan Report ---
HEAD CT NONCONTRAST CT DOSE: 614.27 mGy.cm HISTORY: Altered mental status. TECHNIQUE: Multiaxial CT images of the head were performed without the use of intravenous contrast. A utomated exposure control was utilized for this study. A dose lowering technique was utilized adheri ng to the principles of ALARA. Comparison: Head CT 03/14/2018. Findings: The paranasal sinuses and mastoid air cells are clear. The calvarium and skull base are int act. There is no mass, hematoma, midline shift, acute infarct. White matter hypodensity is nonspecifi c but suggestive of microvascular ischemic change. The ventricles and sulci demonstrate mild age-rela severiano involutional changes. Impression: No significant change compared to the prior study. No acute intracranial abnormality. Electronically signed by: Miguel Angel Steele M.D. 09/04/2018 10:23 AM
[2018-09-04 10:39] LABS: Anisocytosis Present; Giant Platelets 1+
[2018-09-04 10:42] LABS: ALC (manual) 1.19 K/uL (1.2-3.4); Blast # (manual) 0.04 K/uL (0-0); Blast Cells % (manual) 1.8 %; Lymphocytes # (manual) 1.19 K/uL (1.2-3.4); Lymphocytes % (manual) 59.5 %; Metamyelocytes # (manual) 0.02 K/uL (0-0); Metamyelocytes % (manual) 0.9 %; Monocytes # (manual) 0.04 K/uL (0.11-0.59); Monocytes % (manual) 1.8 %
[2018-09-04] MEDS ORDERED: VANCOMYCIN CONSULT ACTIVE PRN (10:59)
[2018-09-04] MEDS ORDERED: VANCOMYCIN HCL 1,750 MG in SODIUM CHLORIDE 0.9% 500 ML IV ONE (10:59)
[2018-09-04] MEDS ORDERED: CEFEPIME 2,000 MG/12.5 ML VIAL IV STA (10:59)
[2018-09-04 11:07] LABS: Appearance Urine Cloudy (Clear); Bacteria Urine Automated 4+ (Negative); Bilirubin Urine Negative (Negative); Blood Urine 1+ (Negative); Color Urine Yellow; Epithelial Cell Urine Auto 0-5 /lpf (0-5); Glucose Urine UA Negative (Negative); Ketones Urine Negative (Negative); Leukocyte Esterase Urine 3+ (Negative); Nitrite Urine Negative (Negative); Protein Urine 2+ (Negative); RBC Urine Automated 0-4 /hpf (0-4); Specific Gravity Urine 1.016 (1.000-1.030); Urobilinogen Urine Negative (Negative); WBC Urine Automated >30 /hpf (0-5)
[2018-09-04] MEDS ORDERED: ACETAMINOPHEN 325 MG TAB PO PRN (12:58)
[2018-09-04] MEDS ORDERED: TRAMADOL HCL 50 MG TABLET PO PRN (12:58)
[2018-09-04] MEDS ORDERED: DICLOFENAC SOD 1% GEL 100 GM TUBE EXT PRN (12:58)
[2018-09-04] MEDS ORDERED: ONDANSETRON INJ 2 MG/ML 2 ML VIAL IV PRN (12:58)
[2018-09-04] MEDS ORDERED: MENTHOL-ZINC OXIDE 360 APPLN/120 GM TUBE EXT PRN (12:58)
[2018-09-04] MEDS ORDERED: SODIUM CHLORIDE 0.9% 1000ML 1,000 ML IV SCH (13:20)
--- NOTE | 2018-09-04 13:25 | History & Physical Report ---
Date of Service September 04, 2018 Assessment & Plan (1) Neutropenic fever: due to UTI most likely, neutropenia is long standing issue treat with Cefepime and Vanco likely taper antibiotics based on urine culture (2) Acute UTI: most likely related to recent indwelling pereira, that was removed 2 weeks ago prior culture grew E coli that was resistant to quinolones will treat with Cefepime and Vanco NSS over night, reassess need for fluids tomorrow (3) Dementia: ongoing issue, getting worse will need placement prefers [facility] (4) Acute kidney injury superimposed on CKD: mild rise in Cr to 1.42 likely from acute infection and dehydration will give NSS over night and reassess (5) Thrombocytopenia: chronic issue, low at 37 hold on DVT prophylaxis no current bleeding (6) Post herpetic neuralgia: chronic issue pain currently controlled (7) Metabolic encephalopathy: due to UTI on top of dementia treat underlying infection (8) Anemia: Hb stable at 9 was low at 6 one month ago, required transfusions refused endoscopic work up in the past History of Present Illness Chief Complaint: I'm at a hospital Primary Care Provider: Thomas Combs MD 88 yo male with history of progressive dementia who presents with his due to confusion. The confusion started suddenly this morning. All of the the recent history was obtained from the patient's at the bedside. She says that since he was discharged 3 weeks ago he has not done well at home. It has been very difficult for her to take care of him because she is by herself the vast majority of the time. It is difficult because he will not help at all, does not realize what he needs. He was discharged to home on 08/10 after admission for leg pain, confustion, and subsequently had difficulty urinating and urinary retention. He went home with a pereira, had a successful voiding trial in the office and has been voiding okay since then. He continues to have really bad sundowning. says it is exhausting to take care of him. She says she can no longer do it, needs to go to SNF. The acute change in mental status was worked up in the ED. He was found to be febrile and he had a UA that suggested a UTI. He was pancytopenic which is normal for him, ongoing issue. BMP was unremarkable. CT head showed no acute changes. He was given Cefepime and Vanco and started on IV fluids and admission was requested. Allergies Allergy/AdvReac Type Severity Reaction Status Date / Time No Known Allergies Allergy Verified 09/04/18 10:03 Home Medications Home Medications Medication Instructions Recorded Confirmed Type alfuzosin 10 mg PO QPM #30 tab 08/10/18 09/04/18 Rx diclofenac sodium [Voltaren] See Rx Instructions .ROUTE 08/10/18 09/04/18 Rx .COMPLEX PRN #100 gm gabapentin 300 mg PO BID #60 cap 08/10/18 09/04/18 Rx menthol-zinc oxide [Calmoseptine] 1 applic EXT BID PRN #71 gm 08/10/18 09/04/18 Rx mirtazapine 15 mg PO HS #30 tab 08/10/18 09/04/18 Rx quetiapine 50 mg PO HS #30 tab 08/10/18 09/04/18 Rx tramadol 50 mg PO TID PRN #30 tab 08/10/18 09/04/18 Rx pantoprazole [Protonix] 40 mg PO DAILYBB 09/04/18 09/04/18 History quetiapine 25 mg PO HS 09/04/18 09/04/18 History Past Med/Surg History Social History Preferred Language: Nepalese Communication Ability: Effective [employer] Supervisor Required: No Beliefs That Will Affect Care: None marital status: Current Living Situation: Spouse current occupational status: retired Other Information That Helps Us Care for You: No Feels Safe at Home: Yes Safety Concerns: Feels Safe At This Time Smoking Status: Never smoker Hx Alcohol Use: No Hx Substance Use: No Review of Systems Unobtainable due to cognitive status Physical Exam Vital Signs (Past 24 Hours): Last Vital Signs Temp 36.7 C 09/04/18 13:01 Pulse 73 09/04/18 13:01 Resp 20 09/04/18 13:01 BP 139/80 09/04/18 13:01 Pulse Ox 96 09/04/18 13:01 Constitutional: WD/WN, vitals as above Eyes: PERRL, conjunctivae normal, anicteric sclerae ENMT: external ear and nose normal, oropharynx normal Neck: trachea midline, no thyromegaly Respiratory: normal respiratory effort, lungs clear to auscultation Cardiovascular: RRR, no murmur, no edema Gastrointestinal (Abdomen): normal bowel sounds, soft, nontender, no hepatosplenomegaly Musculoskeletal: no cyanosis or clubbing, extremities motor strength 5/5 Skin: no rashes, warm and dry Neurologic: patellar DTR's 2+ bilat, sensation intact and PERRL, EOMI, accommodation nl, no face palsy, no dysarthria Psychiatric: Orientation: alert, oriented to person and cooperative; + not oriented to place and + not oriented to time Apperance: appropriately dressed Eye Contact: + fair eye contact Lymphatic: no cervical or axillary lymphadenopathy Results & Data Laboratory Results Laboratory Results - last 24 hr 09/04/18 09/04/18 09/04/18 09:43 09:43 09:43 WBC 2.00 L RBC 2.91 L Hgb 9.3 L Hct 28.6 L MCV 98.3 MCH 32.0 MCHC 32.5 RDW Std Deviation 69.0 H RDW Coeff of Key 19.3 H Plt Count 37 L MPV 11.1 H Neutrophils % (Manual) 36.0 Lymphocytes % (Manual) 59.5 Monocytes % (Manual) 1.8 Metamyelocytes % (Man) 0.9 Blast Cells % (Manual) 1.8 Neutrophils # (Manual) 0.72 L Total Absolute Neuts 0.72 L* Lymphocytes # (Manual) 1.19 L Total Abs Lymphocytes 1.19 L Monocytes # (Manual) 0.04 L Metamyelocytes # (Man) 0.02 H Blast Cells # (Man) 0.04 H Giant Platelets 1+ Anisocytosis Present PT 12.4 H INR 1.2 H Sodium 140 Potassium 4.0 Chloride 107 Carbon Dioxide 25 Anion Gap 8.0 BUN 21 H Creatinine 1.42 H Est Cr Clr Drug Dosing 37.1 Est GFR ( Amer) 50.4 Est GFR (Non-Af Amer) 43.5 BUN/Creatinine Ratio 14.4 Glucose 111 H Lactate Calcium 8.8 Magnesium 2.2 Total Bilirubin 0.8 Direct Bilirubin 0.3 H AST 18 ALT 12 Alkaline Phosphatase 83 Troponin I < 0.015 Total Protein 7.5 Albumin 3.0 L Urine Color Urine Appearance Urine pH Ur Specific [place] Urine Protein Urine Glucose (UA) Urine Ketones Urine Blood Urine Nitrite Urine Bilirubin Urine Urobilinogen Ur Leukocyte Esterase Urine WBC (Auto) Urine RBC (Auto) U Hyaline Cast (Auto) U Epithel Cells (Auto) Urine Bacteria (Auto) 09/04/18 09/04/18 09:43 10:42 WBC RBC Hgb Hct MCV MCH MCHC RDW Std Deviation RDW Coeff of Key Plt Count MPV Neutrophils % (Manual) Lymphocytes % (Manual) Monocytes % (Manual) Metamyelocytes % (Man) Blast Cells % (Manual) Neutrophils # (Manual) Total Absolute Neuts Lymphocytes # (Manual) Total Abs Lymphocytes Monocytes # (Manual) Metamyelocytes # (Man) Blast Cells # (Man) Giant Platelets Anisocytosis PT INR Sodium Potassium Chloride Carbon Dioxide Anion Gap BUN Creatinine Est Cr Clr Drug Dosing Est GFR ( Amer) Est GFR (Non-Af Amer) BUN/Creatinine Ratio Glucose Lactate 1.4 Calcium Magnesium Total Bilirubin Direct Bilirubin AST ALT Alkaline Phosphatase Troponin I Total Protein Albumin Urine Color Yellow Urine Appearance Cloudy H Urine pH 5.0 Ur Specific [place] 1.016 Urine Protein 2+ H Urine Glucose (UA) Negative Urine Ketones Negative Urine Blood 1+ H Urine Nitrite Negative Urine Bilirubin Negative Urine Urobilinogen Negative Ur Leukocyte Esterase 3+ H Urine WBC (Auto) >30 H Urine RBC (Auto) 0-4 U Hyaline Cast (Auto) 1-5 U Epithel Cells (Auto) 0-5 Urine Bacteria (Auto) 4+ H Diagnostic Findings HEAD CT NONCONTRAST HISTORY: Altered mental status. Comparison: Head CT 03/14/2018. Findings: The paranasal sinuses and mastoid air cells are clear. The calvarium and skull base are intact. There is no mass, hematoma, midline shift, acute infarct. White matter hypodensity is nonspecific but suggestive of microvascular ischemic change. The ventricles and sulci demonstrate mild age-related involutional changes. Impression: No significant change compared to the prior study. No acute intracranial abnormality. SINGLE VIEW CHEST CLINICAL HISTORY: Change in mental status. FINDINGS: An AP, portable, upright chest radiograph is compared to study dated 07/30/2018. The examination is degraded by portable technique and patient rotation. The heart is enlarged and there is atherosclerotic calcification of the thoracic aorta. The pulmonary vasculature is noncongested. Bibasilar airspace opacities likely represent atelectasis. No large pleural effusion or pneumothorax is seen. The skeletal structures are osteopenic. The bony thorax is grossly intact. IMPRESSION: 1. Cardiomegaly without radiographic evidence of congestive failure. 2. Bibasilar opacities likely represent atelectasis. Clinical correlation will be required. Code Status & VTE Plan Code Status DNR VTE Prophylaxis Plan VTE Prophylaxis will be ordered: Yes
--- NOTE | 2018-09-04 15:10 | Pharmacy Report ---
Pharmacy Abx Dose Short Note - Date of Service September 04, 2018 - Assessment & Plan Assessment * 88 year old M receiving cefepime and vancomycin for treatment of complicated UTI * UA with negative nitrite - more likely to be Enterococcus or Pseudomonas although infection with other GNR cannot be ruled out * SCr slightly elevated from baseline of 1.1 mg/dL (currently 1.4 mg/dL) * Patient is neutropenic (ANC 0.7) and febrile Vancomycin * 20 mg/kg dose administered in ED * Goal vancomycin trough 15-20 mcg/mL * Based on unclear trend in renal function, will refrain from ordering a maintenance dose for now and instead dose via level * Anticipated t1/2 based on CrCL is 20 hours - OK to wait to check level until AM labs Plan * No additional vancomycin for now * Random level in AM Pharmacy will continue to follow and will adjust dose/frequency as necessary. Thank you.
--- NOTE | 2018-09-04 15:20 | Emergency Department Note ---
Entered by Francisca Adrian acting as a scribe for ED Provider Note Name: Graham Gillis Age: 88 Arrives Via: EMS Informant: Family CC: Confusion HPI: An 88 year old male arrives for evaluation of persistent confusion beginning over the past 2 weeks. Family reports the patient has not been himself over the past 2 weeks, worsening this morning. They note he was warm to the touch this morning. Family states the patient coughs intermittently after drinking. They report the patient's legs are more swollen than usual. Family denies chest pain or shortness of breath. They deny recent falls or injuries. The family states the patient says he is not hungry, but will eat. They state he has not been drinking much. The patient was recently treated for a UTI, and is no longer on any antibiotics. His family reports his catheter was removed, he has been urinating on his own, and his urine has been malodorous. ROS: See above HPI for pertinent positives & negatives. A total of 10 systems reviewed and were otherwise negative. Past Medical History: MINOO, CKD, CVA, dementia, stroke, squamous cell carcinoma, hiatal hernia, anxiety disorder, HTN, anemia, shingles. Past Surgical History: Cholecystectomy, back surgery, cataract surgery. Family History: Omitted due to patient age. Social History: . Home Medications: Alfuzosin, diclofenac sodium, gabapentin, menthol-zinc oxide, mirtazapine, pantoprazole, quetiapine, tramadol. Allergies No known allergies. Physical: Vitals: Blood pressure: 126/80. Heart rate: 92. Respiratory rate: 16. Temperature: 100.0 F. O2 saturation: 95, delivery: room air. Exam: GENERAL: Patient is elderly appearing, somnolent. EYES: No scleral icterus, unremarkable pupils. ENT: Mucous membranes dry, no nasal congestion. NECK: No masses appreciated, no meningismus, trachea is midline. RESPIRATORY: No dyspnea. Clear to auscultation and equal bilaterally. No wheeze, no rhonchi. CARDIOVASCULAR: Regular rate and rhythm. No murmurs, rubs, gallops appreciated. GASTROINTESTINAL: Abdomen soft, non-tender, no peritonitis. Bowel sounds positive. No masses appreciated. BACK: No midline tenderness, no CVA tenderness EXTREMITIES: Normal motion all extremities, no cyanosis. Trace edema bilateral lower legs NEUROLOGIC: Awakens, answers simple questions. no acute motor or sensory deficits, no focal weakness, cranial nerves grossly intact. GCS 14. SKIN: No rash, no jaundice, no diaphoresis. ED Course: Prior Medical Record, Triage/Nursing Notes, Medications, Allergies reviewed by Me Vital Signs: reviewed and remarkable for febrile Labs: Reviewed and remarkable for neutropenia, +UTI Interventions: Saline Lock, Cefepime 2g IV, Vanco 20mg/kg IV, NSS bolus Imaging: X ray results are stated below per my interpretation: Chest: 1 view: No infiltrate, no effusion, normal cardiac border. CT HEAD per rads without acute findings see below Consults: 1116: I reviewed the patient's case with Dr. Patel, [facility] hospitalist. He will evaluate the patient for further management. Reassessments/Times: 1110: Upon reevaluation, the patient's heart rate is coming down and he remains altered and confused. I discussed test results with the patient and his family. 1217: The patient is asleep. His family verbalized agreement with the treatment plan. Blood pressure: Normal. No Referral necessary Disposition: Evaluation by hospitalist. Prescriptions: none. Differentials: Differential includes acute coronary syndrome, myocardial infarction, CVA, TIA, anemia, infection, pneumonia, UTI, pyelonephritis, poor nutrition, dehydration, electrolyte disturbance, hypoglycemia. Medical Decision Makin yr old male with worsening mental status over the last few days. Febrile her e. He continues to be neutropenic/thrombocytopenic. CXR clear. CT head OK. No evidence this is cardiac in origin. UA clearly appears to have bacteria. Cultures obtained. LA looks OK. He is neutropenic fever with UTI and thus treated agresively with cefepime/vanc. Stable and will come in for further management. Impression: Neutropenic Fever Acute UTI Houston Porter MD The scribe's documentation has been prepared under my direction and personally reviewed by me in its entirety. I confirm that the note above accurately reflects all work, treatment, procedures, and medical decision making performed by me. 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 Required: No Beliefs That Will Affect Care: None marital status: Current Living Situation: Spouse current occupational status: retired Other Information That Helps Us Care for You: No Feels Safe at Home: Yes Safety Concerns: Feels Safe At This Time Smoking Status: Never smoker Hx Alcohol Use: No Hx Substance Use: No Results & Data Vital Signs Vital Signs - 24 hr 09/04/18 09:03 09/04/18 10:30 09/04/18 11:31 Temperature 37.8 C H Temperature Source Oral Sepsis Recent Fever Within 48 Hours No Sepsis New/Unexplained Change in Mental Status No Sepsis Action Taken by Nursing No Action Required Pulse Rate 104 H Pulse Rate [Apical] 92 H 81 Pulse Rhythm [Apical] Regular Pulse Strength [Apical] Respiratory Rate 18 16 17 Respiratory Effort / Characteristics Non-Labored Respiratory Depth Normal Respiratory Pattern Regular Blood Pressure 138/79 Blood Pressure [Right Arm] 126/80 133/68 Blood Pressure Mean 98 Blood Pressure Mean [Right Arm] 95 89 Blood Pressure Position [Right Arm] Lying Pulse Oximetry 93 95 94 Oxygen Delivery Method Room Air Room Air Room Air Oxygen Flow Rate 0 09/04/18 13:01 09/04/18 13:11 Temperature 36.7 C 36.7 C Temperature Source Oral Oral Sepsis Recent Fever Within 48 Hours Sepsis New/Unexplained Change in Mental Status Sepsis Action Taken by Nursing Pulse Rate Pulse Rate [Apical] 73 76 Pulse Rhythm [Apical] Regular Regular Pulse Strength [Apical] Normal Normal Respiratory Rate 20 20 Respiratory Effort / Characteristics Non-Labored Spontaneous Non-Labored Spontaneous Respiratory Depth Normal Normal Respiratory Pattern Regular Regular Blood Pressure Blood Pressure [Right Arm] 139/80 138/80 Blood Pressure Mean Blood Pressure Mean [Right Arm] 99 99 Blood Pressure Position [Right Arm] Lying Lying Pulse Oximetry 96 96 Oxygen Delivery Method Room Air Room Air Oxygen Flow Rate Home Medications Current Medication List: was personally reviewed by me Laboratory Data Attestation: I reviewed the patient's lab results. Result diagrams: 09/04/18 09:43 09/04/18 09:43 Lab Results 09/04/18 09/04/18 09/04/18 Range/Units 09:43 09:43 09:43 WBC 2.00 L (4.8-10.8) K/uL RBC 2.91 L (4.7-6.1) M/uL Hgb 9.3 L (14.0-18.0) g/dL Hct 28.6 L (42-52) % MCV 98.3 (80-100) fL MCH 32.0 (25-34) pg MCHC 32.5 (32-36) g/dL RDW Std Deviation 69.0 H (36.4-46.3) fL RDW Coeff of Key 19.3 H (11.5-14.5) % Plt Count 37 L (130-400) K/uL MPV 11.1 H (7.4-10.4) fL Neutrophils % (Manual) 36.0 % Lymphocytes % (Manual) 59.5 % Monocytes % (Manual) 1.8 % Metamyelocytes % (Man) 0.9 % Blast Cells % (Manual) 1.8 % Neutrophils # (Manual) 0.72 L (1.4-6.5) K/uL Total Absolute Neuts 0.72 L* (1.4-6.5) K/uL Lymphocytes # (Manual) 1.19 L (1.2-3.4) K/uL Total Abs Lymphocytes 1.19 L (1.2-3.4) K/uL Monocytes # (Manual) 0.04 L (0.11-0.59) K/uL Metamyelocytes # (Man) 0.02 H (0-0) K/uL Blast Cells # (Man) 0.04 H (0-0) K/uL Giant Platelets 1+ Anisocytosis Present PT 12.4 H (9.0-12.0) Seconds INR 1.2 H (0.9-1.1) Sodium 140 (136-145) mmol/L Potassium 4.0 (3.5-5.1) mmol/L Chloride 107 (98-107) mmol/L Carbon Dioxide 25 (21-32) mmol/L Anion Gap 8.0 (3-11) BUN 21 H (7-18) mg/dl Creatinine 1.42 H (0.6-1.4) mg/dl Est Cr Clr Drug Dosing 37.1 ml/min Est GFR ( Amer) 50.4 Est GFR (Non-Af Amer) 43.5 BUN/Creatinine Ratio 14.4 (10-20) Glucose 111 H (70-99) mg/dl Lactate (0.4-2.0) mmol/L Calcium 8.8 (8.5-10.1) mg/dl Magnesium 2.2 (1.8-2.4) mg/dl Total Bilirubin 0.8 (0.2-1) mg/dl Direct Bilirubin 0.3 H (0-0.2) mg/dl AST 18 (15-37) U/L ALT 12 (12-78) U/L Alkaline Phosphatase 83 (45-117) U/L Troponin I < 0.015 (0-0.045) ng/ml Total Protein 7.5 (6.4-8.2) gm/dl Albumin 3.0 L (3.4-5.0) gm/dl Urine Color Urine Appearance (Clear) Urine pH (4.5-7.5) Ur Specific [place] (1.000-1.030) Urine Protein (Negative) Urine Glucose (UA) (Negative) Urine Ketones (Negative) Urine Blood (Negative) Urine Nitrite (Negative) Urine Bilirubin (Negative) Urine Urobilinogen (Negative) Ur Leukocyte Esterase (Negative) Urine WBC (Auto) (0-5) /hpf Urine RBC (Auto) (0-4) /hpf U Hyaline Cast (Auto) (0-5) /lpf U Epithel Cells (Auto) (0-5) /lpf Urine Bacteria (Auto) (Negative) 09/04/18 09/04/18 Range/Units 09:43 10:42 WBC (4.8-10.8) K/uL RBC (4.7-6.1) M/uL Hgb (14.0-18.0) g/dL Hct (42-52) % MCV (80-100) fL MCH (25-34) pg MCHC (32-36) g/dL RDW Std Deviation (36.4-46.3) fL RDW Coeff of Key (11.5-14.5) % Plt Count (130-400) K/uL MPV (7.4-10.4) fL Neutrophils % (Manual) % Lymphocytes % (Manual) % Monocytes % (Manual) % Metamyelocytes % (Man) % Blast Cells % (Manual) % Neutrophils # (Manual) (1.4-6.5) K/uL Total Absolute Neuts (1.4-6.5) K/uL Lymphocytes # (Manual) (1.2-3.4) K/uL Total Abs Lymphocytes (1.2-3.4) K/uL Monocytes # (Manual) (0.11-0.59) K/uL Metamyelocytes # (Man) (0-0) K/uL Blast Cells # (Man) (0-0) K/uL Giant Platelets Anisocytosis PT (9.0-12.0) Seconds INR (0.9-1.1) Sodium (136-145) mmol/L Potassium (3.5-5.1) mmol/L Chloride (98-107) mmol/L Carbon Dioxide (21-32) mmol/L Anion Gap (3-11) BUN (7-18) mg/dl Creatinine (0.6-1.4) mg/dl Est Cr Clr Drug Dosing ml/min Est GFR ( Amer) Est GFR (Non-Af Amer) BUN/Creatinine Ratio (10-20) Glucose (70-99) mg/dl Lactate 1.4 (0.4-2.0) mmol/L Calcium (8.5-10.1) mg/dl Magnesium (1.8-2.4) mg/dl Total Bilirubin (0.2-1) mg/dl Direct Bilirubin (0-0.2) mg/dl AST (15-37) U/L ALT (12-78) U/L Alkaline Phosphatase (45-117) U/L Troponin I (0-0.045) ng/ml Total Protein (6.4-8.2) gm/dl Albumin (3.4-5.0) gm/dl Urine Color Yellow Urine Appearance Cloudy H (Clear) Urine pH 5.0 (4.5-7.5) Ur Specific [place] 1.016 (1.000-1.030) Urine Protein 2+ H (Negative) Urine Glucose (UA) Negative (Negative) Urine Ketones Negative (Negative) Urine Blood 1+ H (Negative) Urine Nitrite Negative (Negative) Urine Bilirubin Negative (Negative) Urine Urobilinogen Negative (Negative) Ur Leukocyte Esterase 3+ H (Negative) Urine WBC (Auto) >30 H (0-5) /hpf Urine RBC (Auto) 0-4 (0-4) /hpf U Hyaline Cast (Auto) 1-5 (0-5) /lpf U Epithel Cells (Auto) 0-5 (0-5) /lpf Urine Bacteria (Auto) 4+ H (Negative) Administered Medications Sodium Chloride (Nss 1000ml) 1,000 mls @ 80 mls/hr IV .[id number] SHENA Stop: 09/05/18 01:49 Last Admin: 09/04/18 14:07 Dose: 80 mls/hr Documented by: [id number] Discontinued Medications Sodium Chloride (Nss 1000ml) 500 mls @ 999 mls/hr IV .[id number] ONE Stop: 09/04/18 09:35 Last Infusion: 09/04/18 11:08 Dose: 0 mls/hr Documented by: [id number] Admin: 09/04/18 10:41 Dose: 999 mls/hr Documented by: [id number] Cefepime HCl (Maxipime) 2,000 mg in 12.5 mls @ 3.125 mls/min IV NOW STA Stop: 09/04/18 11:02 Last Admin: 09/04/18 11:27 Dose: 3.125 mls/min Documented by: [id number] Vancomycin HCl 1,750 mg/ (Sodium Chloride) 535 mls @ 200 mls/hr IV NOW ONE Stop: 09/04/18 13:39 Last Infusion: 09/04/18 14:29 Dose: 0 mls/hr Documented by: [id number] Admin: 09/04/18 11:42 Dose: 200 mls/hr Documented by: [id number] Imaging Data Radiologist's Impression: Radiology results as stated below per my review and the radiologist's interpretation: HEAD CT NONCONTRAST CT DOSE: 614.27 mGy.cm HISTORY: Altered mental status. TECHNIQUE: Multiaxial CT images of the head were performed without the use of intravenous contrast. Automated exposure control was utilized for this study. A dose lowering technique was utilized adhering to the principles of ALARA. Comparison: Head CT 03/14/2018. Findings: The paranasal sinuses and mastoid air cells are clear. The calvarium and skull base are intact. There is no mass, hematoma, midline shift, acute infarct. White matter hypodensity is nonspecific but suggestive of microvascular ischemic change. The ventricles and sulci demonstrate mild age-related involutional changes. Impression: No significant change compared to the prior study. No acute intracranial abnormality. Electronically signed by: Miguel Angel Steele M.D. 09/04/2018 10:23 AM SINGLE VIEW CHEST CLINICAL HISTORY: Change in mental status. FINDINGS: An AP, portable, upright chest radiograph is compared to study dated 07/30/2018. The examination is degraded by portable technique and patient rotation. The heart is enlarged and there is atherosclerotic calcification of the thoracic aorta. The pulmonary vasculature is noncongested. Bibasilar airspace opacities likely represent atelectasis. No large pleural effusion or pneumothorax is seen. The skeletal structures are osteopenic. The bony thorax is grossly intact. IMPRESSION: 1. Cardiomegaly without radiographic evidence of congestive failure. 2. Bibasilar opacities likely represent atelectasis. Clinical correlation will be required. Electronically signed by: Jensen Leonard M.D. 09/04/2018 9:34 AM Discharge Plan Visit Data *Final* Discharge Date/Time: 09/04/18 12:22 Chief Complaint: Confusion ED Provider: Houston Porter Discharge Problem: Neutropenic fever, Acute UTI Patient Disposition: Admitted As Inpatient Discharge Instructions Interventions: ED Discharge Assessment Last Done: 09/04/18 12:22 The scribe's documentation has been prepared under my direction and personally reviewed by me in its entirety. I confirm that the note above accurately reflect s all work, treatment, procedures, and medical decision making performed by me.
[2018-09-04] MEDS: GABAPENTIN 300 MG CAP PO SCH (20:23)
[2018-09-04] MEDS: ALFUZOSIN HCL 10 MG TAB PO SCH (20:23)
[2018-09-04] MEDS: MIRTAZAPINE TAB 15 MG TAB PO SCH (20:23)
[2018-09-04] MEDS ORDERED: QUETIAPINE FUMARATE 25 MG TABLET PO SCH (21:00)
[2018-09-04] MEDS: QUETIAPINE FUMARATE 25 MG TABLET PO SCH (21:31)
[2018-09-05] MEDS ORDERED: LORazepam 0.5 MG/1 ML VIAL IV STA (00:42)
[2018-09-05] MEDS: GABAPENTIN 300 MG CAP PO SCH ×2 (07:59→20:08)
[2018-09-05] MEDS: PANTOprazole 40 MG TAB PO SCH (07:59)
[2018-09-05 08:32] LABS: Hematocrit (blood only) 27.3 % (42-52); Hemoglobin 8.7 g/dL (14.0-18.0); Mean Corpuscular Hgb Conc 31.9 g/dL (32-36); Mean Corpuscular Volume 100.7 fL (80-100); Platelet Count 30 K/uL (130-400); RDW Coefficient of Variation 19.2 % (11.5-14.5); Red Blood Count 2.71 M/uL (4.7-6.1); White Blood Count 1.91 K/uL (4.8-10.8)
[2018-09-05 08:53] LABS: BUN Creatinine Ratio 14.9 (10-20); Calcium 8.3 mg/dl (8.5-10.1); Creatinine Clr Calc Pharmacy 45.9 ml/min; Est GFR (African American) 66.4; Est GFR (Non-African American) 57.3; Potassium 3.9 mmol/L (3.5-5.1)
[2018-09-05 09:20] LABS: Basophilic Stippling 1+; Ovalocytes 1+
[2018-09-05 09:25] LABS: Blast # (manual) 0.03 K/uL (0-0); Blast Cells % (manual) 1.8 %; Lymphocytes % (manual) 68.1 %; Monocytes # (manual) 0.08 K/uL (0.11-0.59); Monocytes % (manual) 4.4 %; Neutrophils % (manual) 25.7 %
[2018-09-05] MEDS: CEFEPIME 1,000 MG in SYRINGE 0 ML IV SCH (10:31)
--- NOTE | 2018-09-05 15:32 | Hospitalist Progress Note ---
Date of Service September 05, 2018 Assessment & Plan (1) Neutropenic fever: due to UTI most likely, neutropenia is long standing issue treat with Cefepime and Vanco will d/c Vanco today as urine culture growing GNR (2) Acute UTI: most likely related to recent indwelling pereira, that was removed 2 weeks ago prior culture grew E coli that was resistant to quinolones will treat with Cefepime and Vanco again, taper to just Cefepime due to urine culture results, sensitivity should be back tomorrow (3) Dementia: ongoing issue, getting worse will need placement prefers [facility] PT/OT ordered for referral process (4) Acute kidney injury superimposed on CKD: mild rise in Cr to 1.42 likely from acute infection and dehydration resolved with IV fluids, Cr down to 1.1 today (5) Thrombocytopenia: chronic issue, low at 30 hold on DVT prophylaxis no current bleeding (6) Post herpetic neuralgia: chronic issue pain currently controlled (7) Metabolic encephalopathy: due to UTI on top of dementia treat underlying infection patient appears to be at baseline today (8) Anemia: Hb stable at 8.7 was low at 6 one month ago, required transfusions refused endoscopic work up in the past (9) Constipation: will try Dulcolax suppository Subjective patient says he feels okay this morning, no new issues says that he ate a little breakfast he is confused at baseline reviewed labs, Cr improved to 1.1, still with pancytopenia that is chronic urine culture growing GNR still with constipation, says that a suppository works at home Review of Systems Unobtainable due to cognitive status Physical Exam Vital Signs (Past 24 Hours): Last Vital Signs Temp 36.6 C 09/05/18 12:00 Pulse 76 09/05/18 12:00 Resp 18 09/05/18 12:00 BP 93/58 L 09/05/18 12:00 Pulse Ox 96 09/05/18 12:00 Constitutional: WD/WN, vitals as above Eyes: PERRL, conjunctivae normal, anicteric sclerae ENMT: external ear and nose normal, oropharynx normal Neck: trachea midline, no thyromegaly Respiratory: normal respiratory effort, lungs clear to auscultation Cardiovascular: RRR, no murmur, no edema Gastrointestinal (Abdomen): normal bowel sounds, soft, nontender, no hepatosplenomegaly Musculoskeletal: no cyanosis or clubbing, extremities motor strength 5/5 Skin: no rashes, warm and dry Neurologic: patellar DTR's 2+ bilat, sensation intact and PERRL, EOMI, accommodation nl, no face palsy, no dysarthria Psychiatric: Orientation: alert, oriented to person and cooperative; + not oriented to place and + not oriented to time Apperance: appropriately dressed Eye Contact: + fair eye contact Lymphatic: no cervical or axillary lymphadenopathy Results & Data Laboratory Results Laboratory Results - last 24 hr 09/05/18 09/05/18 09/05/18 07:45 07:45 07:45 WBC 1.91 L RBC 2.71 L Hgb 8.7 L Hct 27.3 L MCV 100.7 H MCH 32.1 MCHC 31.9 L RDW Std Deviation 70.0 H RDW Coeff of Key 19.2 H Plt Count 30 L MPV 11.0 H Neutrophils % (Manual) 25.7 Lymphocytes % (Manual) 68.1 Monocytes % (Manual) 4.4 Blast Cells % (Manual) 1.8 Neutrophils # (Manual) 0.49 L Total Absolute Neuts 0.49 L* Lymphocytes # (Manual) 1.30 Total Abs Lymphocytes 1.30 Monocytes # (Manual) 0.08 L Blast Cells # (Man) 0.03 H Basophilic Stippling 1+ Ovalocytes 1+ Sodium 143 Potassium 3.9 Chloride 111 H Carbon Dioxide 25 Anion Gap 7.0 BUN 17 Creatinine 1.13 Est Cr Clr Drug Dosing 45.9 Est GFR ( Amer) 66.4 Est GFR (Non-Af Amer) 57.3 BUN/Creatinine Ratio 14.9 Glucose 95 Calcium 8.3 L Random Vancomycin 8.8 Microbiology 09/04/18 10:42 Urine,Clean Catch Urine Culture - Preliminary Gram negative bacilli Medications Administered Current Inpatient Medications Acetaminophen (Tylenol) 650 mg PO Q4H PRN PRN Reason: pain/fever Stop: 10/04/18 12:57 Alfuzosin HCl (Uroxatral) 10 mg PO QPM SHENA Stop: 10/04/18 20:59 Last Admin: 09/04/18 20:23 Dose: 10 mg Documented by: Calamine/Phenol (Calmoseptine) 1 appln EXT BID PRN PRN Reason: skin irritation Stop: 10/04/18 12:57 Diclofenac Sodium (Voltaren 1% Top) 2 appln EXT BID PRN; Protocol PRN Reason: pain Stop: 10/04/18 12:57 Gabapentin (Neurontin) 300 mg PO BID [facility] Stop: 10/04/18 20:59 Last Admin: 09/05/18 07:59 Dose: 300 mg Documented by: Cefepime HCl 1,000 mg/ Syringe 11.3 mls @ 5.5 mls/min IV DAILY@1100 SHENA; Protocol Stop: 09/15/18 10:59 Last Admin: 09/05/18 10:31 Dose: 5.5 mls/min Documented by: Lorazepam (Ativan) 0.5 mg in 1 mls @ 0.5 mls/min IV HS PRN PRN Reason: hour sleep Stop: 10/05/18 00:44 Mirtazapine (Remeron) 15 mg PO HS [facility] Stop: 10/04/18 20:59 Last Admin: 09/04/18 20:23 Dose: 15 mg Documented by: Ondansetron HCl (Zofran) 4 mg IV Q6H PRN PRN Reason: Nausea Stop: 10/04/18 12:57 Pantoprazole Sodium (Protonix) 40 mg PO DAILYBB [facility] Stop: 10/05/18 06:29 Last Admin: 09/05/18 07:59 Dose: 40 mg Documented by: Polyethylene Glycol (Miralax Powder Packet) 17 gm PO DAILY PRN PRN Reason: Constipation Stop: 10/04/18 12:57 Quetiapine Fumarate (Seroquel) 75 mg PO HS [facility]; Protocol Stop: 10/04/18 20:59 Last Admin: 09/04/18 21:31 Dose: 75 mg Documented by: Tramadol HCl (Ultram) 50 mg PO TID PRN PRN Reason: pain Stop: 10/04/18 12:57 Last Admin: 09/05/18 00:28 Dose: 50 mg Documented by:
[2018-09-05] MEDS: QUETIAPINE FUMARATE 25 MG TABLET PO SCH (20:08)
[2018-09-05] MEDS: BISACODYL 5 MG TABEC PO PRN (20:08)
[2018-09-05] MEDS: MIRTAZAPINE TAB 15 MG TAB PO SCH (20:08)
[2018-09-05] MEDS: ALFUZOSIN HCL 10 MG TAB PO SCH (20:08)
[2018-09-05] MEDS: LORazepam 0.5 MG/1 ML VIAL IV PRN (21:51)
[2018-09-06] MEDS: PANTOprazole 40 MG TAB PO SCH (06:45)
[2018-09-06] MEDS: GABAPENTIN 300 MG CAP PO SCH ×2 (08:16→21:04)
[2018-09-06] MEDS: POLYETHYLENE (MIRALAX) 17 GM PACK PO PRN (08:23)
[2018-09-06] MEDS: BISACODYL 5 MG TABEC PO PRN (08:23)
[2018-09-06] MEDS: CEFEPIME 1,000 MG in SYRINGE 0 ML IV SCH (11:15)
--- NOTE | 2018-09-06 12:52 | Hospitalist Progress Note ---
Date of Service September 06, 2018 Assessment & Plan (1) Neutropenic fever: due to UTI, neutropenia is long standing issue treated with Cefepime and Vanco initially, stopped Vanco on 09/05 will change to Keflex today (2) Acute UTI: most likely related to recent indwelling pereira, that was removed 2 weeks ago prior culture grew E coli that was resistant to quinolones will treat with Cefepime urine culture this admission shows E coli, sensitive to cephalosporins change to Keflex, complete 10 day course total (3) Dementia: ongoing issue, getting worse will need placement prefers [facility] PT/OT ordered for referral process likely d/c tomorrow (4) Acute kidney injury superimposed on CKD: mild rise in Cr to 1.42 on admission likely from acute infection and dehydration resolved with IV fluids, Cr down to 1.1 today (5) Thrombocytopenia: chronic issue, low at 30 on 09/05 hold on DVT prophylaxis no current bleeding (6) Post herpetic neuralgia: chronic issue pain currently controlled (7) Metabolic encephalopathy: due to UTI on top of dementia treat underlying infection patient appears to be at baseline today (8) Anemia: Hb stable at 8.7 on 09/05 was low at 6 one month ago, required transfusions refused endoscopic work up in the past (9) Constipation: will try Dulcolax suppository in addition to Miralax still no BM Subjective patient sitting up in a chair, ate breakfast no complaints except he has not moved his bowels discussed with at bedside, she wants to see him moving more PT/OT evaluations done today reviewed labs, stable urine culture with E coli, sensitive to cephalosporins, change to Keflex d/w CM, plan for d/c tomorrow Review of Systems Review of Systems: Unobtainable due to cognitive status Physical Exam Constitutional: WD/WN, vitals as above Eyes: PERRL, conjunctivae normal, anicteric sclerae ENMT: external ear and nose normal, oropharynx normal Neck: trachea midline, no thyromegaly Respiratory: normal respiratory effort, lungs clear to auscultation Cardiovascular: RRR, no murmur, no edema Gastrointestinal (Abdomen): normal bowel sounds, soft, nontender, no hepatosplenomegaly Musculoskeletal: no cyanosis or clubbing, extremities motor strength 5/5 Skin: no rashes, warm and dry Neurologic: patellar DTR's 2+ bilat, sensation intact and PERRL, EOMI, accommodation nl, no face palsy, no dysarthria Psychiatric: Orientation: alert, oriented to person and cooperative; + not oriented to place and + not oriented to time Apperance: appropriately dressed Lymphatic: no cervical or axillary lymphadenopathy Results & Data Vital Signs (Past 12 Hours) Vital Signs Temp Pulse Resp BP BP Pulse Ox 09/06/18 11:17 36.8 C 93 H 18 103/61 96 09/06/18 07:25 36.8 C 96 H 18 134/69 97 09/06/18 03:00 36.4 C L 91 H 20 150/84 H 97 Laboratory Results Microbiology 09/04/18 10:42 Urine,Clean Catch Urine Culture - Final Escherichia coli 09/04/18 09:57 Blood Blood Culture - Preliminary No growth to date. 09/04/18 09:43 Blood Blood Culture - Preliminary No growth to date. Medications Administered Current Inpatient Medications Acetaminophen (Tylenol) 650 mg PO Q4H PRN PRN Reason: pain/fever Stop: 10/04/18 12:57 Alfuzosin HCl (Uroxatral) 10 mg PO QPM SHENA Stop: 10/04/18 20:59 Last Admin: 09/05/18 20:08 Dose: 10 mg Documented by: Bisacodyl (Dulcolax) 5 mg PO DAILY PRN PRN Reason: Constipation Stop: 10/05/18 16:37 Last Admin: 09/06/18 08:23 Dose: 5 mg Documented by: Calamine/Phenol (Calmoseptine) 1 appln EXT BID PRN PRN Reason: skin irritation Stop: 10/04/18 12:57 Diclofenac Sodium (Voltaren 1% Top) 2 appln EXT BID PRN; Protocol PRN Reason: pain Stop: 10/04/18 12:57 Gabapentin (Neurontin) 300 mg PO BID SHENA Stop: 10/04/18 20:59 Last Admin: 09/06/18 08:16 Dose: 300 mg Documented by: Cefepime HCl 1,000 mg/ Syringe 11.3 mls @ 5.5 mls/min IV DAILY@1100 SHENA; Protocol Stop: 09/15/18 10:59 Last Admin: 09/06/18 11:15 Dose: 5.5 mls/min Documented by: Lorazepam (Ativan) 0.5 mg in 1 mls @ 0.5 mls/min IV HS PRN PRN Reason: hour sleep Stop: 10/05/18 00:44 Last Admin: 09/05/18 21:51 Dose: 0.5 mls/min Documented by: Mirtazapine (Remeron) 15 mg PO HS [facility] Stop: 10/04/18 20:59 Last Admin: 09/05/18 20:08 Dose: 15 mg Documented by: Ondansetron HCl (Zofran) 4 mg IV Q6H PRN PRN Reason: Nausea Stop: 10/04/18 12:57 [facility]: 10/05/18 06:29 Last Admin: 09/06/18 06:45 Dose: 40 mg Documented by: Polyethylene Glycol (Miralax Powder Packet) 17 gm PO DAILY PRN PRN Reason: Constipation Stop: 10/04/18 12:57 Last Admin: 09/06/18 08:23 Dose: 17 gm Documented by: Quetiapine Fumarate (Seroquel) 75 mg PO HS [facility]; Protocol Stop: 10/04/18 20:59 Last Admin: 09/05/18 20:08 Dose: 75 mg Documented by: Tramadol HCl (Ultram) 50 mg PO TID PRN PRN Reason: pain Stop: 10/04/18 12:57 Last Admin: 09/05/18 00:28 Dose: 50 mg Documented by:
[2018-09-06] MEDS ORDERED: BISACODYL 10 MG SUPP PR ONE (16:24)
[2018-09-06] MEDS ORDERED: BISACODYL 10 MG SUPP PR STA (16:43)
[2018-09-06] MEDS: QUETIAPINE FUMARATE 25 MG TABLET PO SCH (21:04)
[2018-09-06] MEDS: ALFUZOSIN HCL 10 MG TAB PO SCH (21:04)
[2018-09-06] MEDS: MIRTAZAPINE TAB 15 MG TAB PO SCH (21:35)
[2018-09-06] MEDS: LORazepam 0.5 MG/1 ML VIAL IV PRN (22:12)
[2018-09-07] MEDS ORDERED: LORazepam 0.5 MG/1 ML VIAL IV STA (03:44)
[2018-09-07] MEDS: LORazepam 0.5 MG/1 ML VIAL IV PRN ×2 (04:56→20:13)
[2018-09-07] MEDS: GABAPENTIN 300 MG CAP PO SCH ×2 (08:23→19:48)
[2018-09-07] MEDS: PANTOprazole 40 MG TAB PO SCH (08:23)
[2018-09-07] MEDS: cephALEXin 250 MG CAP PO SCH ×2 (09:43→20:01)
--- NOTE | 2018-09-07 17:02 | Hospitalist Progress Note ---
Date of Service September 07, 2018 Assessment & Plan (1) Neutropenic fever: due to UTI, neutropenia is long standing issue treated with Cefepime and Vanco initially, stopped Vanco on 09/05 changed to Keflex on 09/06 continue for 10-14 day course on discharge (2) Acute UTI: most likely related to recent indwelling pereira, that was removed 2 weeks ago prior culture grew E coli that was resistant to quinolones will treat with Cefepime urine culture this admission shows E coli, sensitive to cephalosporins change to Keflex on 09/06, complete 10-14 day course total (3) Dementia: ongoing issue, getting worse will need placement prefers [facility] PT/OT ordered for referral process no beds at SNF today, hopeful for tomorrow (4) Acute kidney injury superimposed on CKD: mild rise in Cr to 1.42 on admission likely from acute infection and dehydration resolved with IV fluids, Cr down to 1.1 on 09/06 (5) Thrombocytopenia: chronic issue, low at 30 on 09/05 hold on DVT prophylaxis no current bleeding (6) Post herpetic neuralgia: chronic issue pain currently controlled (7) Metabolic encephalopathy: due to UTI on top of dementia treat underlying infection patient appears to be at baseline today (8) Anemia: Hb stable at 8.7 on 09/05 was low at 6 one month ago, required transfusions refused endoscopic work up in the past (9) Constipation: will try Dulcolax suppository in addition to Miralax no reported BM yet abdomen soft, NT, no vomiting, continue to monitor for BM Subjective met with patient with his and son and daughter in law in the room says he just wants to get his clothes on, said that he could wear pants if it helped him be comfortable he was not eating much, won't eat the soft diet or thickened liquids discussed that I was fine with normal foods and thin liquids with understanding that he will aspirate says that she accepts that risk because otherwise he won't eat reviewed vitals and labs, everything stable Review of Systems Review of Systems: Unobtainable due to cognitive status Physical Exam Constitutional: WD/WN, vitals as above Eyes: PERRL, conjunctivae normal, anicteric sclerae ENMT: external ear and nose normal, oropharynx normal Neck: trachea midline, no thyromegaly Respiratory: normal respiratory effort, lungs clear to auscultation Cardiovascular: RRR, no murmur, no edema Gastrointestinal (Abdomen): normal bowel sounds, soft, nontender, no hepatosplenomegaly Musculoskeletal: no cyanosis or clubbing, extremities motor strength 5/5 Skin: no rashes, warm and dry Neurologic: patellar DTR's 2+ bilat, sensation intact and PERRL, EOMI, accommodation nl, no face palsy, no dysarthria Psychiatric: Orientation: alert, oriented to person and cooperative; + not oriented to place and + not oriented to time Apperance: appropriately dressed Eye Contact: + fair eye contact Lymphatic: no cervical or axillary lymphadenopathy Results & Data Vital Signs (Past 12 Hours) Vital Signs Temp Pulse Resp BP Pulse Ox 09/07/18 16:00 36.3 C L 92 H 18 137/80 97 Medications Administered Current Inpatient Medications Acetaminophen (Tylenol) 650 mg PO Q4H PRN PRN Reason: pain/fever Stop: 10/04/18 12:57 Alfuzosin HCl (Uroxatral) 10 mg PO QPM [facility] Stop: 10/04/18 20:59 Last Admin: 09/06/18 21:04 Dose: 10 mg Documented by: Bisacodyl (Dulcolax) 5 mg PO DAILY PRN PRN Reason: Constipation Stop: 10/05/18 16:37 Last Admin: 09/06/18 08:23 Dose: 5 mg Documented by: Calamine/Phenol (Calmoseptine) 1 appln EXT BID PRN PRN Reason: skin irritation Stop: 10/04/18 12:57 Cephalexin HCl (Keflex) 500 mg PO BID [facility] Stop: 09/14/18 21:01 Last Admin: 09/07/18 09:43 Dose: 500 mg Documented by: Diclofenac Sodium (Voltaren 1% Top) 2 appln EXT BID PRN; Protocol PRN Reason: pain Stop: 10/04/18 12:57 Gabapentin (Neurontin) 300 mg PO BID [facility] Stop: 10/04/18 20:59 Last Admin: 09/07/18 08:23 Dose: 300 mg Documented by: Lorazepam (Ativan) 0.5 mg in 1 mls @ 0.5 mls/min IV HS PRN PRN Reason: hour sleep Stop: 10/05/18 00:44 Last Admin: 09/06/18 22:12 Dose: 0.5 mls/min Documented by: Mirtazapine (Remeron) 15 mg PO HS [facility] Stop: 10/04/18 20:59 Last Admin: 09/06/18 21:35 Dose: 15 mg Documented by: Ondansetron HCl (Zofran) 4 mg IV Q6H PRN PRN Reason: Nausea Stop: 10/04/18 12:57 Pantoprazole Sodium (Protonix) 40 mg PO DAILYBB [facility] Stop: 10/05/18 06:29 Last Admin: 09/07/18 08:23 Dose: 40 mg Documented by: Polyethylene Glycol (Miralax Powder Packet) 17 gm PO DAILY PRN PRN Reason: Constipation Stop: 10/04/18 12:57 Last Admin: 09/06/18 08:23 Dose: 17 gm Documented by: Quetiapine Fumarate (Seroquel) 75 mg PO HS [facility]; Protocol Stop: 10/04/18 20:59 Last Admin: 09/06/18 21:04 Dose: 75 mg Documented by: Tramadol HCl (Ultram) 50 mg PO TID PRN PRN Reason: pain Stop: 10/04/18 12:57 Last Admin: 09/05/18 00:28 Dose: 50 mg Documented by:
[2018-09-07] MEDS: QUETIAPINE FUMARATE 25 MG TABLET PO SCH (19:48)
[2018-09-07] MEDS: ALFUZOSIN HCL 10 MG TAB PO SCH (19:49)
[2018-09-07] MEDS: MIRTAZAPINE TAB 15 MG TAB PO SCH (19:49)
[2018-09-08] MEDS ORDERED: HALOPERIDOL LACTATE 5 MG/ML 1 ML VIAL IM STA (03:05)
[2018-09-08] MEDS: PANTOprazole 40 MG TAB PO SCH (05:44)
[2018-09-08 08:03] LABS: Hematocrit (blood only) 26.4 % (42-52); Hemoglobin 8.5 g/dL (14.0-18.0); Mean Corpuscular Volume 98.5 fL (80-100); Mean Platelet Volume 11.2 fL (7.4-10.4); RDW Standard Deviation 68.3 fL (36.4-46.3); Red Blood Count 2.68 M/uL (4.7-6.1); White Blood Count 1.43 K/uL (4.8-10.8)
[2018-09-08 08:15] LABS: Mean Corpuscular Hgb Conc 32.2 g/dL (32-36)
[2018-09-08 08:18] LABS: Platelet Count 28 K/uL (130-400); Platelet Estimate SIGNIFIC DECREASED (Normal)
[2018-09-08 08:27] LABS: BUN Creatinine Ratio 11.4 (10-20); Calcium 8.7 mg/dl (8.5-10.1); Creatinine Clr Calc Pharmacy 47.4 ml/min; Est GFR (African American) 70.2; Est GFR (Non-African American) 60.5; Potassium 3.7 mmol/L (3.5-5.1)
[2018-09-08] MEDS: GABAPENTIN 300 MG CAP PO SCH ×2 (09:05→20:27)
[2018-09-08] MEDS: cephALEXin 250 MG CAP PO SCH ×2 (09:05→20:27)
[2018-09-08] MEDS: QUETIAPINE FUMARATE 25 MG TABLET PO SCH (20:27)
[2018-09-08] MEDS: MIRTAZAPINE TAB 15 MG TAB PO SCH (20:27)
[2018-09-08] MEDS: ALFUZOSIN HCL 10 MG TAB PO SCH (20:27)
--- NOTE | 2018-09-08 21:49 | Hospitalist Progress Note ---
Date of Service September 08, 2018 Assessment & Plan (1) Neutropenic fever: due to UTI, neutropenia is long standing issue treated with Cefepime and Vanco initially, stopped Vanco on 09/05 changed to Keflex on 09/06 continue for 10-14 day course on discharge (2) Acute UTI: most likely related to recent indwelling pereira, that was removed 2 weeks ago prior culture grew E coli that was resistant to quinolones will treat with Cefepime urine culture this admission shows E coli, sensitive to cephalosporins change to Keflex on 09/06, complete 10-14 day course total (3) Dementia: ongoing issue, getting worse will need placement prefers [facility] PT/OT ordered for referral process no beds at [facility] today, hopeful for tomorrow (4) Acute kidney injury superimposed on CKD: mild rise in Cr to 1.42 on admission likely from acute infection and dehydration resolved with IV fluids, Cr down to 1.1 on 09/06 (5) Thrombocytopenia: chronic issue, low at 28 hold on DVT prophylaxis no current bleeding (6) Post herpetic neuralgia: chronic issue pain currently controlled (7) Metabolic encephalopathy: due to UTI on top of dementia treat underlying infection patient appears to be at baseline today (8) Anemia: Hb 8.5 today, no bleeding was low at 6 one month ago, required transfusions refused endoscopic work up in the past (9) Constipation: will try Dulcolax suppository in addition to Miralax no reported BM yet abdomen soft, NT, no vomiting, continue to monitor for BM Subjective no major changes today still no bed at [facility] reviewed labs, platelets low at 28 and Hb down to 8.5 and WBC < 2 no BM today Review of Systems Review of Systems: Unobtainable due to cognitive status Physical Exam Constitutional: WD/WN, vitals as above Eyes: PERRL, conjunctivae normal, anicteric sclerae ENMT: external ear and nose normal, oropharynx normal Neck: trachea midline, no thyromegaly Respiratory: normal respiratory effort, lungs clear to auscultation Cardiovascular: RRR, no murmur, no edema Gastrointestinal (Abdomen): normal bowel sounds, soft, nontender, no hepatosplenomegaly Musculoskeletal: no cyanosis or clubbing, extremities motor strength 5/5 Skin: no rashes, warm and dry Neurologic: patellar DTR's 2+ bilat, sensation intact and PERRL, EOMI, accommodation nl, no face palsy, no dysarthria Psychiatric: Orientation: alert, oriented to person and cooperative; + not oriented to place and + not oriented to time Apperance: appropriately dressed Eye Contact: + fair eye contact Lymphatic: no cervical or axillary lymphadenopathy Results & Data Vital Signs (Past 12 Hours) Vital Signs Temp Pulse Resp BP Pulse Ox 09/08/18 19:22 36.6 C 82 15 107/71 96 09/08/18 15:25 36.6 C 86 20 125/80 98 Laboratory Results Laboratory Results - last 24 hr 09/08/18 09/08/18 07:09 07:09 WBC 1.43 L RBC 2.68 L Hgb 8.5 L Hct 26.4 L MCV 98.5 MCH 31.7 MCHC 32.2 RDW Std Deviation 68.3 H RDW Coeff of Key 19.0 H Plt Count 28 L* MPV 11.2 H Platelet Estimate SIGNIFIC DECREASED Sodium 147 H Potassium 3.7 Chloride 114 H Carbon Dioxide 28 Anion Gap 5.0 BUN 12 Creatinine 1.08 Est Cr Clr Drug Dosing 47.4 Est GFR ( Amer) 70.2 Est GFR (Non-Af Amer) 60.5 BUN/Creatinine Ratio 11.4 Glucose 101 H Calcium 8.7 Medications Administered Current Inpatient Medications Acetaminophen (Tylenol) 650 mg PO Q4H PRN PRN Reason: pain/fever Stop: 10/04/18 12:57 Alfuzosin HCl (Uroxatral) 10 mg PO QPM [facility] Stop: 10/04/18 20:59 Last Admin: 09/08/18 20:27 Dose: 10 mg Documented by: Bisacodyl (Dulcolax) 5 mg PO DAILY PRN PRN Reason: Constipation Stop: 10/05/18 16:37 Last Admin: 09/06/18 08:23 Dose: 5 mg Documented by: Calamine/Phenol (Calmoseptine) 1 appln EXT BID PRN PRN Reason: skin irritation Stop: 10/04/18 12:57 Cephalexin HCl (Keflex) 500 mg PO BID [facility] Stop: 09/14/18 21:01 Last Admin: 09/08/18 20:27 Dose: 500 mg Documented by: Diclofenac Sodium (Voltaren 1% Top) 2 appln EXT BID PRN; Protocol PRN Reason: pain Stop: 10/04/18 12:57 Gabapentin (Neurontin) 300 mg PO BID [facility] Stop: 10/04/18 20:59 Last Admin: 09/08/18 20:27 Dose: 300 mg Documented by: Lorazepam (Ativan) 0.5 mg in 1 mls @ 0.5 mls/min IV HS PRN PRN Reason: hour sleep Stop: 10/05/18 00:44 Last Admin: 09/07/18 20:13 Dose: 0.5 mls/min Documented by: Mirtazapine (Remeron) 15 mg PO HS [facility] Stop: 10/04/18 20:59 Last Admin: 09/08/18 20:27 Dose: 15 mg Documented by: Ondansetron HCl (Zofran) 4 mg IV Q6H PRN PRN Reason: Nausea Stop: 10/04/18 12:57 Pantoprazole Sodium (Protonix) 40 mg PO DAILYBB [facility] Stop: 10/05/18 06:29 Last Admin: 09/08/18 05:44 Dose: 40 mg Documented by: Polyethylene Glycol (Miralax Powder Packet) 17 gm PO DAILY PRN PRN Reason: Constipation Stop: 10/04/18 12:57 Last Admin: 09/06/18 08:23 Dose: 17 gm Documented by: Quetiapine Fumarate (Seroquel) 75 mg PO HS [facility]; Protocol Stop: 10/04/18 20:59 Last Admin: 09/08/18 20:27 Dose: 75 mg Documented by: Tramadol HCl (Ultram) 50 mg PO TID PRN PRN Reason: pain Stop: 10/04/18 12:57 Last Admin: 09/05/18 00:28 Dose: 50 mg Documented by:
[2018-09-09] MEDS: PANTOprazole 40 MG TAB PO SCH (05:11)
[2018-09-09] MEDS: GABAPENTIN 300 MG CAP PO SCH ×2 (08:14→20:38)
[2018-09-09] MEDS: cephALEXin 250 MG CAP PO SCH ×2 (08:14→20:38)
[2018-09-09] MEDS: POLYETHYLENE (MIRALAX) 17 GM PACK PO PRN (09:08)
--- NOTE | 2018-09-09 14:40 | Hospitalist Progress Note ---
Date of Service September 09, 2018 Assessment & Plan (1) Neutropenic fever: due to UTI, neutropenia is long standing issue treated with Cefepime and Vanco initially, stopped Vanco on 09/05 changed to Keflex on 09/06 continue for 10-14 day course on discharge last dose will be on 09/14 (2) Acute UTI: most likely related to recent indwelling pereira, that was removed 2 weeks ago prior culture grew E coli that was resistant to quinolones will treat with Cefepime urine culture this admission shows E coli, sensitive to cephalosporins change to Keflex on 09/06, complete 10-14 day course total again, last day on 09/14 (3) Dementia: ongoing issue, getting worse will need placement prefers [facility] PT/OT ordered for referral process no beds at [facility] this weekend plan on [facility] on Tuesday as long as they have bed (4) Acute kidney injury superimposed on CKD: mild rise in Cr to 1.42 on admission likely from acute infection and dehydration resolved with IV fluids, Cr down to 1.1 on 09/06 (5) Thrombocytopenia: chronic issue, low at 28 hold on DVT prophylaxis no current bleeding repeat tomorrow (6) Post herpetic neuralgia: chronic issue pain currently controlled (7) Metabolic encephalopathy: due to UTI on top of dementia treat underlying infection patient appears to be at baseline today (8) Anemia: Hb 8.5 on 09/08, no bleeding was low at 6 one month ago, required transfusions refused endoscopic work up in the past will repeat tomorrow (9) Constipation: resolved on 09/08 and then another BM on 09/09 Subjective patient resting today no complaints, no major issues happy because he is wearing normal clothes he finally had a BM last night and then another BM this afternoon eating well no labs today will plan on [facility] tuesday Review of Systems Review of Systems: Unobtainable due to cognitive status Physical Exam Constitutional: WD/WN, vitals as above Eyes: PERRL, conjunctivae normal, anicteric sclerae ENMT: external ear and nose normal, oropharynx normal Neck: trachea midline, no thyromegaly Respiratory: normal respiratory effort, lungs clear to auscultation Cardiovascular: RRR, no murmur, no edema Gastrointestinal (Abdomen): normal bowel sounds, soft, nontender, no hepatosplenomegaly Musculoskeletal: no cyanosis or clubbing, extremities motor strength 5/5 Skin: no rashes, warm and dry Neurologic: patellar DTR's 2+ bilat, sensation intact and PERRL, EOMI, accommodation nl, no face palsy, no dysarthria Psychiatric: Orientation: alert, oriented to person and cooperative; + not oriented to place and + not oriented to time Apperance: appropriately dressed Eye Contact: + fair eye contact Lymphatic: no cervical or axillary lymphadenopathy Results & Data Vital Signs (Past 12 Hours) Vital Signs Temp Pulse Resp BP BP Pulse Ox 09/09/18 11:56 36.9 C 99 H 18 116/71 98 09/09/18 08:00 36.4 C L 92 H 20 170/92 H 96 09/09/18 03:00 36.8 C 85 17 128/79 95 Medications Administered Current Inpatient Medications Acetaminophen (Tylenol) 650 mg PO Q4H PRN PRN Reason: pain/fever Stop: 10/04/18 12:57 Alfuzosin HCl (Uroxatral) 10 mg PO QPM [facility] Stop: 10/04/18 20:59 Last Admin: 09/08/18 20:27 Dose: 10 mg Documented by: Bisacodyl (Dulcolax) 5 mg PO DAILY PRN PRN Reason: Constipation Stop: 10/05/18 16:37 Last Admin: 09/06/18 08:23 Dose: 5 mg Documented by: Calamine/Phenol (Calmoseptine) 1 appln EXT BID PRN PRN Reason: skin irritation Stop: 10/04/18 12:57 Cephalexin HCl (Keflex) 500 mg PO BID [facility] Stop: 09/14/18 21:01 Last Admin: 09/09/18 08:14 Dose: 500 mg Documented by: Diclofenac Sodium (Voltaren 1% Top) 2 appln EXT BID PRN; Protocol PRN Reason: pain Stop: 10/04/18 12:57 Gabapentin (Neurontin) 300 mg PO BID [facility] Stop: 10/04/18 20:59 Last Admin: 09/09/18 08:14 Dose: 300 mg Documented by: Lorazepam (Ativan) 0.5 mg in 1 mls @ 0.5 mls/min IV HS PRN PRN Reason: hour sleep Stop: 10/05/18 00:44 Last Admin: 09/07/18 20:13 Dose: 0.5 mls/min Documented by: Mirtazapine (Remeron) 15 mg PO HS [facility] Stop: 10/04/18 20:59 Last Admin: 09/08/18 20:27 Dose: 15 mg Documented by: Ondansetron HCl (Zofran) 4 mg IV Q6H PRN PRN Reason: Nausea Stop: 10/04/18 12:57 [facility] Stop: 10/05/18 06:29 Last Admin: 09/09/18 05:11 Dose: 40 mg Documented by: Polyethylene Glycol (Miralax Powder Packet) 17 gm PO DAILY PRN PRN Reason: Constipation Stop: 10/04/18 12:57 Last Admin: 09/09/18 09:08 Dose: 17 gm Documented by: Quetiapine Fumarate (Seroquel) 75 mg PO [facility]; Protocol Stop: 10/04/18 20:59 Last Admin: 09/08/18 20:27 Dose: 75 mg Documented by: Tramadol HCl (Ultram) 50 mg PO TID PRN PRN Reason: pain Stop: 10/04/18 12:57 Last Admin: 09/05/18 00:28 Dose: 50 mg Documented by:
[2018-09-09] MEDS: QUETIAPINE FUMARATE 25 MG TABLET PO SCH (20:38)
[2018-09-09] MEDS: MIRTAZAPINE TAB 15 MG TAB PO SCH (20:39)
[2018-09-09] MEDS: ALFUZOSIN HCL 10 MG TAB PO SCH (20:39)
[2018-09-10] MEDS ORDERED: HALOPERIDOL LACTATE 5 MG/ML 1 ML VIAL IM STA (00:08)
[2018-09-10] MEDS: PANTOprazole 40 MG TAB PO SCH (06:13)
[2018-09-10 06:39] LABS: Hemoglobin 8.3 g/dL (14.0-18.0); Mean Corpuscular Hgb Conc 31.9 g/dL (32-36); Mean Platelet Volume 10.9 fL (7.4-10.4); Platelet Count 25 K/uL (130-400); RDW Coefficient of Variation 18.4 % (11.5-14.5); RDW Standard Deviation 66.5 fL (36.4-46.3); White Blood Count 1.59 K/uL (4.8-10.8)
[2018-09-10 07:03] LABS: Giant Platelets 1+
[2018-09-10 07:19] LABS: ALC (manual) 1.14 K/uL (1.2-3.4); Basophils # (manual) 0.01 K/uL (0-0.2); Basophils % (manual) 0.9 %; Eosinophils # (manual) 0.01 K/uL (0-0.5); Eosinophils % (manual) 0.9 %; Lymphocytes # (manual) 1.14 K/uL (1.2-3.4); Lymphocytes % (manual) 71.8 %; Monocytes # (manual) 0.03 K/uL (0.11-0.59); Monocytes % (manual) 1.8 %; Neutrophils % (manual) 24.6 %
[2018-09-10] MEDS: GABAPENTIN 300 MG CAP PO SCH ×2 (08:53→19:45)
[2018-09-10] MEDS: cephALEXin 250 MG CAP PO SCH ×2 (08:53→19:46)
[2018-09-10 09:35] LABS: BUN Creatinine Ratio 11.8 (10-20); Calcium 8.3 mg/dl (8.5-10.1); Creatinine Clr Calc Pharmacy 43.8 ml/min; Est GFR (African American) 62.4; Est GFR (Non-African American) 53.8; Potassium 3.6 mmol/L (3.5-5.1)
[2018-09-10 09:59] LABS: Folate (Folic Acid) 14.05 ng/ml (>5.38)
--- NOTE | 2018-09-10 19:05 | Hospitalist Progress Note ---
Date of Service September 10, 2018 Assessment & Plan (1) Neutropenic fever: Had fever at beginning of admission -- due to UTI. No further temps since. Remains on antibiotics for UTI. Neutropenia continues -- this is in setting of pancytopenia -- highly concerning for MDS vs other primary bone marrow process. Cont neutropenic precautions. CBC in am. 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 TSH, b12, folate all normal. Has seen Dr. Espinoza on prior admission - no work-up advised in light of advanced dementia and advanced age along w/ poor prognosis. He has received transfusional support in the past - mentioned today she would not be in favor of additional transfusions. Present on Admission?: Yes (3) Acute UTI: 2nd to E coli. received IV abx therapy early this admission -- changed to keflex on 09/06/18. needs JENNIFER to r/o prostatitis. (4) Dementia: advanced getting worse with time with behavioral disturbance () continue seroquel HS [facility] on Tuesday if bed is available (5) Acute kidney injury superimposed on CKD: MINOO resolved (6) Chronic kidney disease, stage 3a: (7) Thrombocytopenia: no indication for transfusion at this time cbc in am for stability (8) Post herpetic neuralgia: history of pain seems controlled states the anterior right leg was former site of his shingles (9) Metabolic encephalopathy: 2nd to UTI in setting of dementia supportive care HS seroquel (10) Anemia: chronic. this is in setting of chronic pancytopenia - highly concerning for MDS or other process. Dr. espinoza has advised against bone marrow bx and other w/u. in agreement with conservative measures. (11) Constipation: resolved (12) DVT prophylaxis: SCDs hopefully to [facility] tomorrow Subjective at bedside during the visit. she states that he "had a rough night" and didn't sleep well. records show he received haldol 5mg IM x 1 for agitation early this am. he was nonverbal during the visit and sleepy although he awoke when I began to examine him. Review of Systems Review of Systems: Unobtainable due to cognitive status Physical Exam Constitutional: no acute distress very sleepy nonverbal ENMT: external ear and nose normal, oropharynx normal Respiratory: normal respiratory effort, lungs clear to auscultation Cardiovascular: Rate/Rhythm: regular rate and regular rhythm Heart Sounds: normal S1 and normal S2 Vessels: posterior tibial pulses present and dorsalis pedis pulses present; no JVD Gastrointestinal (Abdomen): normal bowel sounds, soft, nontender, no hepatosplenomegaly Psychiatric: Orientation: + not alert and + not oriented x 3 Results & Data Vital Signs (Past 12 Hours) Vital Signs Temp Pulse Resp BP Pulse Ox 09/10/18 18:59 36.9 C 93 H 18 123/76 98 09/10/18 08:00 36.5 C 85 18 154/78 H 97 Laboratory Results Laboratory Results - last 24 hr 09/10/18 09/10/18 09/10/18 05:56 05:56 09:03 WBC 1.59 L RBC 2.60 L Hgb 8.3 L Hct 26.0 L MCV 100.0 MCH 31.9 MCHC 31.9 L RDW Std Deviation 66.5 H RDW Coeff of Key 18.4 H Plt Count 25 L* MPV 10.9 H Neutrophils % (Manual) 24.6 Lymphocytes % (Manual) 71.8 Monocytes % (Manual) 1.8 Eosinophils % (Manual) 0.9 Basophils % (Manual) 0.9 Neutrophils # (Manual) 0.39 L Total Absolute Neuts 0.39 L* Lymphocytes # (Manual) 1.14 L Total Abs Lymphocytes 1.14 L Monocytes # (Manual) 0.03 L Eosinophils # (Manual) 0.01 Basophils # (Manual) 0.01 Giant Platelets 1+ Sodium 146 H Potassium 3.6 Chloride 113 H Carbon Dioxide 27 Anion Gap 6.0 BUN 14 Creatinine 1.19 Est Cr Clr Drug Dosing 43.8 Est GFR ( Amer) 62.4 Est GFR (Non-Af Amer) 53.8 BUN/Creatinine Ratio 11.8 Glucose 93 Calcium 8.3 L Vitamin B12 558 Folate 14.05 TSH 2.270 (1) Anemia Anemia type: unspecified type Qualified Code(s): D64.9 - Anemia, unspecified (2) Dementia Dementia type: Alzheimer's disease Alzheimer's disease onset: unspecified onset Dementia behavioral disturbance: with behavioral disturbance Qualified Code(s): G30.9 - Alzheimer's disease, unspecified; F02.81 - Dementia in other diseases classified elsewhere with behavioral disturbance (3) Constipation Constipation type: other constipation type Qualified Code(s): K59.09 - Other constipation
[2018-09-10] MEDS: QUETIAPINE FUMARATE 25 MG TABLET PO SCH (19:45)
[2018-09-10] MEDS: MIRTAZAPINE TAB 15 MG TAB PO SCH (19:45)
[2018-09-10] MEDS: ALFUZOSIN HCL 10 MG TAB PO SCH (19:45)
[2018-09-11] MEDS: PANTOprazole 40 MG TAB PO SCH (05:44)
[2018-09-11 07:31] LABS: Hematocrit (blood only) 29.9 % (42-52); Hemoglobin 9.4 g/dL (14.0-18.0); Mean Corpuscular Hgb Conc 31.4 g/dL (32-36); Mean Platelet Volume 10.7 fL (7.4-10.4); Platelet Count 24 K/uL (130-400); RDW Coefficient of Variation 18.1 % (11.5-14.5); RDW Standard Deviation 65.9 fL (36.4-46.3); Red Blood Count 2.96 M/uL (4.7-6.1); White Blood Count 1.54 K/uL (4.8-10.8)
[2018-09-11 07:39] LABS: Giant Platelets 1+
[2018-09-11 07:41] LABS: ALC (manual) 1.08 K/uL (1.2-3.4); Blast # (manual) 0.03 K/uL (0-0); Blast Cells % (manual) 1.8 %; Eosinophils # (manual) 0.01 K/uL (0-0.5); Eosinophils % (manual) 0.9 %; Lymphocytes # (manual) 1.08 K/uL (1.2-3.4); Lymphocytes % (manual) 70.1 %; Monocytes # (manual) 0.01 K/uL (0.11-0.59); Monocytes % (manual) 0.9 %; Neutrophils % (manual) 26.3 %
[2018-09-11 07:44] LABS: BUN Creatinine Ratio 10.4 (10-20); Calcium 8.6 mg/dl (8.5-10.1); Creatinine Clr Calc Pharmacy 33.7 ml/min; Est GFR (Non-African American) 39.7; Potassium 3.7 mmol/L (3.5-5.1)
[2018-09-11] MEDS: cephALEXin 250 MG CAP PO SCH (08:11)
[2018-09-11] MEDS: GABAPENTIN 300 MG CAP PO SCH (08:11)
--- NOTE | 2018-09-11 12:25 | Palliative Care Consultation ---
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 Patient follows with Dr. Espinoza for transfusions, possibly an MDS or leukemia process. Patient had a complicated and prolonged hospitalization back in July 2017 when he was here with severe intractable pain which turned out to be progressive dementia with sundowning, then developed hematuria in his Caro bag likely from trauma. He was eventually discharged home with his , with the Caro catheter intact and home health on board. Palliative care was consulted on previous admission as patient's dementia was progressing/worsening, and we assisted with discussing goals of care. Patient reportedly did fairly well at home, was ambulating with walker, was able to verbalize but was quite confused, still sundowning at night. Palliative care is now reconsulted as patient's decided to not undergo further transfusions and focus more on comfort. Patient to be discharged to [facility] for skilled rehab today. -Met with patient and in room 251. Patient is sleeping in chair. DId wake up to verbal stimuli and spoke a little bit. Confused, unable to participate in conversation. Did not open eyes at all. -, Carmelina, stated that her goal really is for patient to be comfortable. He is only here because of his UTI. -Once at [facility], if patient is physically well enough to go back home, Radha will take him home. If not, he will stay at [facility] as a resident. -We discussed transitioning to hospice care whether he goes home or is at [facility]. agrees that hospice is the goal. They had [facility], who also has hospice so the transition would be easy. -Discussed POLST form. Carmelina wasn't ready to complete it yet, but we did go over it and I sent it home with her. -No symptom management needs at this time. Please contact me with any further palliative care needs. (2) Acute UTI: (3) Neutropenic fever: (4) Pancytopenia: Supervising Physician Co-Signing Physician Notes Chart reviewed, patient seen and examined, patient known to our service from prior admission. Patient's and daughter at bedside. PE: Patient sitting upright in a chair, asleep, appears comfortable Respiratory: Respirations unlabored CV: Appears well perfused Abdomen: No increased distention Extremities: No increased edema Skin: Pale Agree with above note, assessment and plan as per NELSON Logan-goal is to transfer to [facility] and then transition to hospice History of Present Illness Attending Physician: Hang Townsend History of Present Illness This 88 year old male patient with PMH moderately severe dementia FAST score 6c at baseline, chronic thrombocytopenia/pancytopenia requiring transfusions, hematuria, and herpes zoster with post-herpetic neuralgia of right thigh, presented to the hospital five days ago with UTI, neutropenic fever, and pancytopenia. Patient follows with Dr. Espinoza for transfusions, possibly an MDS or leukemia process. Patient had a complicated and prolonged hospitalization back in July 2017 when he was here with severe intractable pain which turned out to be progressive dementia with sundowning, then developed hematuria in his Caro bag likely from trauma. He was eventually discharged home with his , with the Caro catheter intact and home health on board. Palliative care was consulted on previous admission as patient's dementia was progressing/worsening, and we assisted with discussing goals of care. Patient reportedly did fairly well at home, was ambulating with walker, was able to verbalize but was quite confused, still sundowning at night. Palliative care is now reconsulted as patient's decided to not undergo further transfusions and focus more on comfort. Patient to be discharged to [facility] for skilled rehab today. Thank you kindly for consulting me on this nice gentleman and his . Allergies Allergy/AdvReac Type Severity Reaction Status Date / Time No Known Allergies Allergy Verified 09/04/18 10:03 Home Medications Home Medications Medication Instructions Recorded Confirmed Type Calmoseptine 1 applic EXT BID PRN #71 gm 08/10/18 09/04/18 Rx alfuzosin 10 mg PO QPM #30 tab 08/10/18 09/04/18 Rx diclofenac sodium [Voltaren] See Rx Instructions .ROUTE 08/10/18 09/04/18 Rx .COMPLEX PRN #100 gm gabapentin 300 mg PO BID #60 cap 08/10/18 09/04/18 Rx mirtazapine 15 mg PO HS #30 tab 08/10/18 09/04/18 Rx pantoprazole [Protonix] 40 mg PO DAILYBB 09/04/18 09/04/18 History cephalexin 500 mg PO BID 7 Days #14 cap 09/11/18 Rx quetiapine 75 mg PO HS #90 tab 09/11/18 09/04/18 Rx tramadol 50 mg PO Q6H PRN #60 tab 09/11/18 09/04/18 Rx Patient History Social History Preferred Language: [place] Communication Ability: Effective Hearing 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: 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 Required: No Beliefs That Will Affect Care: None marital status: Current Living Situation: Spouse current occupational status: retired Other Information That Helps Us Care for You: No Feels Safe at Home: Yes Safety Concerns: Feels Safe At This Time Smoking Status: Never smoker Second Hand Exposure: No Hx Alcohol Use: No Hx Substance Use: No Review of Systems Review of Systems: Unobtainable due to cognitive status Physical Exam Constitutional: well developed and well nourished; no acute distress ENMT: Ears: + hearing impairment (CAHTO) Neck: normal visual inspection Respiratory: normal respiratory effort, lungs clear to auscultation Cardiovascular: RRR, no murmur, no edema Gastrointestinal (Abdomen): did not assess abdomen at this time Neurologic: awake and + confused Psychiatric: Orientation: + not oriented x 3 Results & Data Vital Signs (Past 12 Hours) Vital Signs Temp Pulse Resp BP Pulse Ox 09/11/18 10:27 36.9 C 95 H 18 104/66 98 Time Spent Midlevel 70 minutes with >50% of time spent at bedside with patient and discussing condition, GOC, POLST and hospice.
--- NOTE | 2018-09-17 16:11 | Discharge Summary ---
Date of Service date of admission - September 04, 2018 date of discharge - September 11, 2018 Admission HPI Per Admitting Provider 88 yo male with history of progressive dementia who presents with his due to confusion. The confusion started suddenly this morning. All of the the recent history was obtained from the patient's at the bedside. She says that since he was discharged 3 weeks ago he has not done well at home. It has been very difficult for her to take care of him because she is by herself the vast majority of the time. It is difficult because he will not help at all, does not realize what he needs. He was discharged to home on 08/10 after admission for leg pain, confustion, and subsequently had difficulty urinating and urinary retention. He went home with a pereira, had a successful voiding trial in the office and has been voiding okay since then. He continues to have really bad sundowning. says it is exhausting to take care of him. She says she can no longer do it, needs to go to SNF. The acute change in mental status was worked up in the ED. He was found to be febrile and he had a UA that suggested a UTI. He was pancytopenic which is chronic for him. CT head showed no acute changes. He was given Cefepime and Vanco and started on IV fluids and admission was requested. Principal Diagnosis neutropenic fever 2nd to UTI Discharge Exam Constitutional no acute distress ENMT external ear and nose normal, oropharynx normal Respiratory normal respiratory effort, lungs clear to auscultation Cardiovascular Rate/Rhythm: regular rate and regular rhythm Heart Sounds: normal S1 and normal S2 Vessels: posterior tibial pulses present and dorsalis pedis pulses present; no JVD Gastrointestinal (Abdomen) normal bowel sounds, soft, nontender, no hepatosplenomegaly Psychiatric Orientation: + not alert and + not oriented x 3 very sleepy, but arouses and says hello Discharge Data Allergies Allergy/AdvReac Type Severity Reaction Status Date / Time No Known Allergies Allergy Verified 09/04/18 10:03 Consultations 1. palliative care 2. PT, OT Ordered Studies CT head - negative for acute process. Hospital Course (1) Neutropenic fever: Had fever at beginning of admission -- due to UTI. Had no recurrent fever since then. Received IV antibiotics for e.coli UTI, transitioning to oral keflex at discharge. He will complete 7 more days of keflex after discharge. The patient's neutropenia persisted his entire stay - see below in "pancytopenia." (2) Pancytopenia: Chronic, dating back to at least 2018, but counts getting worse. TSH, b12, folate all normal. Had seen Dr. Vincenzo Espinoza on prior admission - no work-up advised in light of advanced dementia and advanced age along with poor prognosis. He had received transfusional support in the past - reported during this hospitalization she would not be in favor of additional transfusions moving forward. 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 Palliative care was consulted in light of the likely leukemia and the fact that his /family did not want aggressive measures. POLST form was discussed but not completed. did state that she would likely transition him to hospice in the near future, however. [facility] was notified about the above discussions. Palliative care discussions should be continued upon transfer to [facility]. Would not recommend additional CBC checks since is declining transfusional support. (3) Acute UTI: 2nd to E coli. received IV abx therapy early this admission -- changed to keflex on 09/06/18. will complete 7 more days of Rx after discharge. (4) Dementia: advanced with behavioral disturbance (sundowning). He will continue seroquel HS. (5) Acute kidney injury superimposed on CKD: MINOO resolved with supportive care. (6) Chronic kidney disease, stage 3a: Baseline Cr seems to be about 1.3 to 1.5. (7) Thrombocytopenia: In setting of significant pancytopenia. Discharge platelet count was 24. See "pancytopenia" above. (8) Post herpetic neuralgia: history of pain seems controlled states the anterior right leg was former site of his shingles (9) Metabolic encephalopathy: 2nd to UTI in setting of dementia supportive care HS seroquel (10) Anemia: chronic. this is in setting of chronic pancytopenia - highly concerning for at least MDS; cannot rule out leukemia. Dr. Espinoza has advised against bone marrow biopsy in the past and other work-up due to advanced age and advanced dementia. in agreement with conservative measures. (11) Constipation: resolved during the stay. Total Time Total Time Spent Total Time Spent (In Minutes): 45 Total Time Includes: Examination of the Patient, Discharge Planning, Medication Reconciliation and Communication With Other Providers Discharge Plan Discharge Items Patient Disposition: Transfer Long Term Fac Reason For Visit: UTI WITH ENCEPHALOPATHY Discharge Diagnosis: UTI, E coli sensitive to cephalosporins Dementia - progressive Metabolic encephalopathy due to UTI Pancytopenia - concern for early leukemia process Discharge Goals: Improve disease control and Therapeutic intervention Activity: Resume your previous activity Lifting: None Bathing: No limitations Exercise/Sports: Gradually increase as tolerated Driving/Machine Use Comment: no driving Non-emergency contact: Primary Care Provider Call non-emergency contact if: you have any medication questions, your symptoms worsen and your temperature is above 100.5 Follow-up/Referrals: Thomas Combs MD [Primary Care Provider] - Diet: Regular Diet Texture: Dental soft (bite-sized) Diet Comment: patient refuses to follow aspiration precautions Addtl Provider Instructions: Mr. Gillis was admitted for worsening confusion in the setting of advancing dementia. He was found to have an e. coli UTI. He received 7 days of antibiotics in the hospital and will need 7 more days of keflex at [facility]. He has had sundowning at [facility] requiring use of scheduled seroquel at bedtime and, on occasion, IM haldol. He has worsening pancytopenia with blast cells. This is highly concerning for developing leukemia. The has been told this. He has seen oncology on past admissions and, given his advanced age and dementia, no work-up or treatment recommended. His and family do NOT want blood transfusions for low hemoglobin or platelets. He was seen by palliative care and POLST form was given to to complete. He is not on Hospice but we are slowly moving in that direction given the above issues. Follow-up: 1. medical facilities section director of SNF within 48 hours 2. PCP within 1 week of discharge from SNF if his stay at [facility] is short-term Prescriptions: New cephalexin 250 mg Capsule 500 mg PO BID 7 Days Qty: 14 RF: 0 Continued alfuzosin 10 mg Tablet Extended Release 24 Hr 10 mg PO QPM Qty: 30 RF: 0 gabapentin 300 mg capsule 300 mg PO BID Qty: 60 RF: 0 diclofenac sodium [Voltaren] 1 % Gel See Rx Instructions .ROUTE .COMPLEX PRN (Reason: pain) Qty: 100 RF: 0 mirtazapine 15 mg Tablet 15 mg PO HS Qty: 30 RF: 0 Calmoseptine 0.44-20.6 % Ointment 1 applic EXT BID PRN (Reason: skin irritation) Qty: 71 RF: 0 pantoprazole [Protonix] 40 mg tablet,delayed release (DR/EC) 40 mg PO DAILYBB RF: 0 Changed quetiapine 25 mg Tablet 75 mg PO HS Qty: 90 RF: 0 tramadol 50 mg Tablet 50 mg PO Q6H PRN (Reason: Pain) Qty: 60 RF: 0 Discontinued quetiapine 50 mg tablet 50 mg PO HS Qty: 30 RF: 0 Stand-Alone Forms: [facility] Discharge Orders: Discharge Order (Routine); Ordered 09/11/18 Ordered By: Hang Townsend Skilled Items Patient informed of condition?: No DNR: Yes Discharge Level of Care: Skilled Communicable Disease: No Discharge Prognosis: Deteriorating Admission Data Admit Date/Time: 09/04/18 11:32 Attending Provider: Hang Townsend Admit Provider: Bladimir Patel Primary Care Provider: Thomas Combs Other Providers: Bladimir Patel ; Tisha Villeda Service: Medical Other Interventions: Discharge Summary Assessment (RN) Last Done: 09/11/18 15:19 Pending Studies at Discharge: No DC Date/Time DO NOT enter until pt leaves facility: 09/11/18 15:10
== END 2018-09-11 15:10 | DRG 689 ==
LOC: ED 08:47 → 2W 11:32 → SUATTDRO 11:32 → 2W 12:22